=== PATIENT | male | born 1995 | race Caucasian/White ===

== ENCOUNTER 2018-08-10 17:06 | Emergency (ER) | payer MEDICAID, SELFPAY ==
[2018-08-10 17:10] VITALS: BP 157/78; PULSE 108; RESP 14; TEMP 36.5; O2SAT 100
--- NOTE | 2018-08-10 17:17 | W.ED.GENAD ---
Discharge Plan Disposition Patient Disposition: AGAINST MEDICAL ADVICE Discharge Details Chief Complaint: Chest Pain Clinical Impression: Drug use Reason For Visit: CASH Primary Care Provider: JOANNA CAMPBELL ED Provider: Elmo Menard Home Meds and New Rx's Prescriptions: No Action aripiprazole [Abilify] 20 MG tablet 20 mg PO DAILY RF: 0 quetiapine [Seroquel] 50 MG tablet 100 mg PO HS RF: 0 mirtazapine [Remeron] 15 MG tablet 15 mg PO DAILY RF: 0 guanfacine [Intuniv ER] 4 MG tablet extended release 24 hr 4 mg PO DAILY RF: 0 hydrocortisone 30 GM cream 30 gm Topical BID Qty: 1 RF: 0 Medical Decision Making 17:20 --Pt seen immediately on arrival. 22-year-old male with questionable history of schizophrenia, remote traumatic brain injury, here with anxiety and numbness in his anterior chest after smoking what he thinks is marijuana just prior to arrival. ECG reviewed and interpreted by me: Sinus rhythm 94 bpm with short [place] interval 118, RSR prime pattern noted, possible LVH although patient is quite thin. Patient is agreeable to blood draw but refusing IV placement. Patient has decisional making capacity to provide informed refusal of care. Will obtain labs including electrolytes, tsh, cardiac enzymes. Will give ativan. Plan explained to patient. 17:35 --Patient eloped from the emergency department prior to completion of workup. Attempted to locate the patient on hospital grounds and was unsuccessful HPI General Mode of arrival: EMS. Date/Time Provider Initiated Documentation: 08/10/18 17:16. Limitations to Documentation: no limitations. Information obtained by: patient. HPI Narrative: 22-year-old male with history of remote traumatic brain injury and possible schizophrenia, here with chief complaint of discomfort in his chest. Patient notes anterior central chest discomfort that is described as a numbness. Symptoms started suddenly after smoking marijuana just prior to arrival. Patient denies other known drug use. Patient was in the grocery store after smoking marijuana and started to have symptoms and requested CPR be performed by the staff. He requested EMS. Patient has associated anxiety. No SOB. Related Data Home Medications Medication Instructions Recorded Confirmed aripiprazole [Abilify] 20 mg PO DAILY 08/10/13 05/26/18 quetiapine [Seroquel] 100 mg PO HS 08/10/13 05/26/18 guanfacine [Intuniv ER] 4 mg PO DAILY 06/18/14 05/26/18 mirtazapine [Remeron] 15 mg PO DAILY 06/18/14 05/26/18 hydrocortisone 30 gm TOPICAL BID #1 tube 05/26/18 Previous Rx's Medication Instructions Recorded hydrocortisone 30 gm TOPICAL BID #1 tube 05/26/18 Allergies Allergy/AdvReac Type Severity Reaction Status Date / Time risperidone [From Risperdal] Allergy Intermediate Psychosis Unverified 05/12/17 14:46 Review of Systems Review of Systems All systems reviewed & are unremarkable except as noted in HPI and below Cardiovascular Denies chest pain, Denies palpitations and Denies dyspnea Respiratory Denies dyspnea Psychiatric Reports anxiety Endocrine Denies palpitations PFSH Social History Smoking/Tobacco Use Status: Never Exam Const General: cooperative and anxious HENMT Head: normocephalic and atraumatic Mouth: moist mucous membranes Eyes Conjunctivae: normal conjunctivae Sclera: normal sclerae Pupils: PERRL and pupil size bilaterally (4) EOM: EOM intact bilaterally Neck Neck: trachea midline and supple Resp Auscultation: clear to auscultation bilaterally, no rales, no rhonchi and no wheezes Cardio Jugular venous pressure: no JVD Rate: tachycardic Rhythm: regular rhythm GI Palpation: soft, not firm, no guarding, no masses, not rigid and nontender Skin General skin exam: no rashes or lesions noted Neuro General: alert, awake, oriented x3 and tone normal Extrem General: no edema Psych Appearance: grossly normal Mental Status: mental status grossly normal Speech and Movement: speech and movement normal Mood: anxious mood Affect: anxious affect Insight: insight good Judgment: judgment good
--- NOTE | 2018-08-10 17:28 | ED.GENADUL_ITS ---
Discharge Plan Disposition Patient Disposition: AGAINST MEDICAL ADVICE Discharge Details Chief Complaint: Chest Pain Clinical Impression: Drug use Reason For Visit: CASH Primary Care Provider: JOANNA CAMPBELL ED Provider: Elmo Menard Home Meds and New Rx's Prescriptions: No Action aripiprazole [Abilify] 20 MG tablet 20 mg PO DAILY RF: 0 quetiapine [Seroquel] 50 MG tablet 100 mg PO HS RF: 0 mirtazapine [Remeron] 15 MG tablet 15 mg PO DAILY RF: 0 guanfacine [Intuniv ER] 4 MG tablet extended release 24 hr 4 mg PO DAILY RF: 0 hydrocortisone 30 GM cream 30 gm Topical BID Qty: 1 RF: 0 Medical Decision Making 17:20 --Pt seen immediately on arrival. 22-year-old male with questionable history of schizophrenia, remote traumatic brain injury, here with anxiety and numbness in his anterior chest after smoking what he thinks is marijuana just prior to arrival. ECG reviewed and interpreted by me: Sinus rhythm 94 bpm with short [place] interval 118, RSR prime pattern noted, possible LVH although patient is quite thin. Patient is agreeable to blood draw but refusing IV placement. Patient has decisional making capacity to provide informed refusal of care. Will obtain labs including electrolytes, tsh, cardiac enzymes. Will give ativan. Plan explained to patient. 17:35 --Patient eloped from the emergency department prior to completion of workup. Attempted to locate the patient on hospital grounds and was unsuccessful HPI General Mode of arrival: EMS . Date/Time Provider Initiated Documentation: 08/10/18 17:16 . Limitations to Documentation: no limitations . Information obtained by: patient . HPI Narrative: 22-year-old male with history of remote traumatic brain injury and possible schizophrenia, here with chief complaint of discomfort in his chest. Patient notes anterior central chest discomfort that is described as a numbness. Symptoms started suddenly after smoking marijuana just prior to arrival. Patient denies other known drug use. Patient was in the grocery store after smoking marijuana and started to have symptoms and requested CPR be performed by the staff. He requested EMS. Patient has associated anxiety. No SOB. Related Data Home Medications Medication Instructions Recorded Confirmed aripiprazole [Abilify] 20 mg PO DAILY 08/10/13 05/26/18 quetiapine [Seroquel] 100 mg PO HS 08/10/13 05/26/18 guanfacine [Intuniv ER] 4 mg PO DAILY 06/18/14 05/26/18 mirtazapine [Remeron] 15 mg PO DAILY 06/18/14 05/26/18 hydrocortisone 30 gm TOPICAL BID #1 tube 05/26/18 Previous Rx's Medication Instructions Recorded hydrocortisone 30 gm TOPICAL BID #1 tube 05/26/18 Allergies Allergy/AdvReac Type Severity Reaction Status Date / Time risperidone [From Risperdal] Allergy Intermediate Psychosis Unverified 05/12/17 14:46 Review of Systems Review of Systems All systems reviewed & are unremarkable except as noted in HPI and below Cardiovascular Denies chest pain, Denies palpitations and Denies dyspnea Respiratory Denies dyspnea Psychiatric Reports anxiety Endocrine Denies palpitations PFSH Social History Smoking/Tobacco Use Status: Never Exam Const General: cooperative and anxious HENMT Head: normocephalic and atraumatic Mouth: moist mucous membranes Eyes Conjunctivae: normal conjunctivae Sclera: normal sclerae Pupils: PERRL and pupil size bilaterally (4) EOM: EOM intact bilaterally Neck Neck: trachea midline and supple Resp Auscultation: clear to auscultation bilaterally, no rales, no rhonchi and no wheezes Cardio Jugular venous pressure: no JVD Rate: tachycardic Rhythm: regular rhythm GI Palpation: soft, not firm, no guarding, no masses, not rigid and nontender Skin General skin exam: no rashes or lesions noted Neuro General: alert, awake, oriented x3 and tone normal Extrem General: no edema Psych Appearance: grossly normal Mental Status: mental status grossly normal Speech and Movement: speech and movement normal Mood: anxious mood Affect: anxious affect Insight: insight good Judgment: judgment good
== END 2018-08-10 17:34 | disposition left against medical advice (07) ==
LOC: ER 18:45
PROVIDERS: Emergency Provider Student in an Organized Health Care Education/Training Program; PCP Family Medicine
DX: F12.10 Cannabis abuse, uncomplicated (principal); R07.9 Chest pain, unspecified; Z53.29 Procedure and treatment not carried out because of patient's decision for other reasons
CPT/HCPCS: 80053; 99283; 83735; 84484; 85025

== ENCOUNTER 2018-12-29 14:16 | Emergency (ER) | payer MEDICAID, SELFPAY ==
[2018-12-29 14:27] VITALS: BP 124/74; PULSE 74; RESP 16; TEMP 36.5; O2SAT 100
[2018-12-29 14:48] LABS: Bilirubin Negative (Negative); Blood Negative (Negative); Clarity Cloudy; Glucose Negative (Negative); Ketones Trace mg/dL (Negative); Leukocyte Esterase Negative (Negative); Nitrite Negative (Negative); Urobilinogen 0.2 EU/dL (Up TO 0.2)
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
[2018-12-29 14:59] LABS: *AMPHETAMINES SCREEN URINE Negative (Negative); *BARBITURATES SCREEN URINE Negative (Negative); *BENZODIAZEPINES SCREEN URINE Negative (Negative); Cannabinoids THC Negative (Negative); Cocaine Screen,Urine Negative (Negative); METHADONE URINE SCREEN Negative (Negative); OPIATES URINE SCREEN Negative (Negative)
[2018-12-29 15:06] LABS: Tricyclic Antidepressants Negative (Negative)
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
[2018-12-29 15:45] VITALS: BP 125/81; PULSE 84; RESP 18; O2SAT 99
[2018-12-29 16:06] VITALS: BP 125/81; PULSE 84; RESP 18; TEMP 36.5; O2SAT 99
== END 2018-12-29 16:07 | disposition home or self-care (01) ==
PROVIDERS: Emergency Provider Emergency Medicine
DX: F32.9 Major depressive disorder, single episode, unspecified (principal); R45.851 Suicidal ideations; S41.112A Laceration without foreign body of left upper arm, initial encounter; X78.8XXA Intentional self-harm by other sharp object, initial encounter
CPT/HCPCS: 80307; 99285; 81003; 99284

== ENCOUNTER 2019-02-23 12:59 | Emergency (ER) | payer MEDICAID, SELFPAY ==
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
[2019-02-23 13:30] VITALS: BP 140/85; PULSE 83; RESP 16; TEMP 37.2; O2SAT 98
--- NOTE | 2019-02-23 13:48 | NUR.NOTE ---
refusing to give us a urine. wants to walk to the bathroom. wants to close the door with no one keeping an eye on him.otherwise will not do it. states we are impinging on his rights.Nursing Note:
[2019-02-23 14:08] LABS: Abs Immature Grans 0.01 k/cumm (0.0-0.09); Absolute Basophil Count 0.02 k/cumm (0.0-0.2); Absolute Eosinophil Count 0.01 k/cumm (0.0-0.7); Absolute Lymphocyte Count 1.07 k/cumm (1.2-3.4); Absolute Monocyte Count 0.51 k/cumm (0.11-0.7); Absolute Neutrophil Count 5.77 k/cumm (1.2-6.7); Basophils % 0.3; Eosinophils % 0.1; HCT 47.1 % (40.0-50.0); HGB 16.7 g/dL (13.5-17.5); Immature Grans % 0.1; Lymphocytes % 14.5; Mean Corp. HGB Concentration 35.5 g/dL (32.0-36.0); Mean Corpuscular Hemoglobin 29.7 pg (27.0-33.0); Mean Corpuscular Volume 83.7 fL (80-95); Mean Platelet Volume 10.5 fL (8.0-11.0); Monocytes % 6.9; Neutrophils % 78.1; Platelet Count 251 x1000/uL (130-400); RBC 5.63 m/cumm (4.50-6.00); RBC Distribution Width 13.4 % (11.8-14.1); White Blood Cell Count 7.39 k/cumm (4.4-10.8)
[2019-02-23 14:13] LABS: *AMPHETAMINES SCREEN URINE Negative (Negative); *BARBITURATES SCREEN URINE Negative (Negative); *BENZODIAZEPINES SCREEN URINE Negative (Negative); Cannabinoids THC Negative (Negative); Cocaine Screen,Urine Negative (Negative); METHADONE URINE SCREEN Negative (Negative); OPIATES URINE SCREEN Negative (Negative)
[2019-02-23 14:17] LABS: Tricyclic Antidepressants Negative (Negative)
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
[2019-02-23 14:25] LABS: Salicylate < 2.8 mg/dL (2.8-20.0)
[2019-02-23 14:30] LABS: Acetaminophen < 2 ug/mL (10-30); Calcium 9.5 mg/dL (8.5-10.1); Glucose 90 mg/dL (70-100)
[2019-02-23 14:31] LABS: ALT 26 U/L (12-78); AST 22 U/L (15-37); Albumin 4.7 g/dL (3.4-5.0); Alkaline Phosphatase 108 U/L (46-116); Anion Gap 6.6 mmol/L (3-11); BUN 16 mg/dL (7-18); Bilirubin, Total 0.5 mg/dL (0.2-1.0); CO2 32.4 mmol/L (21.0-32.0); CREATININE 1.11 mg/dL (0.70-1.30); Chloride 101 mmol/L (98-107); Potassium 3.9 mmol/L (3.5-5.1); Sodium 140 mmol/L (136-145); TSH 1.73 uIU/mL (0.358-3.74); Total Protein 8.3 g/dL (6.4-8.2)
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
[2019-02-23 14:35] LABS: ETHANOL BLOOD < 3.0 mg/dL (<3)
--- NOTE | 2019-02-23 15:18 | PDOC.ERCMPRO ---
Care Management Progress Note 02/23-Melvin presents to the emergency department via police. Melvin was found at a spiritism with a knife in his hand. When his pillowcase maker told him that was not a good idea to have a knife, he ran out of the spiritism and started hitting street signs with a pole/stick. He states he is hearing voices. Patient did break a pair of metal handcuffs while in police custody but denies he did. Patient states it was someone else in his body. Patient has been at [facility]. He has demonstrated some aggressive posturing towards police and staff. Currently he is denying suicidal or homicidal ideation. He does have flight of ideas with poor judgment and insight. Devin reports that his father is his guardian. Currently father is out of state. Patient's mother is in [facility]. Intellectual disability and developmental services division (IDDS) at [facility]. Rehab Physician is Radha Helms. Parents can call in and speak with nursing but not patient at this time. Dr. Amin has ordered a CPSO which is in place. Huddle in ED: Dr. Amin, Amber RN, Devin ABARCA, and this CM. Devin states that he is sending a referral to [facility], [facility], [facility], and [facility]. [facility] has no beds. There are some beds available at the other hospitals listed for referral. Devin has know stated that [facility] can not take patient, too acute for their unit. Dr. Amin feels that patient should not have a metal spoon only finger foods, only his family preservation caseworker can visit, and no phone. Will not be allowed to have activities from the activity cart. Little stimulation as possible. Discussed that this CM would reach out to nursing adjustment supervisor to find out if there were beds available to move Melvin upstairs. Discussed with Joy, Nursing Drafter Cartographic, and at this time Melvin can not be moved to the floor. This CM did notify Dr. Amin of this. Safety Plan has been formulated and distributed to appropriate care team members. VOLUNTARY FOR INPATIENT PSYCHIATRIC STABILIZATION. Patient was not cooperating when first arrived at [facility]. Pt has is unable to demonstrate appropriate coping skills at this time. Safety plan has been established with patient, and care team, to adhere to patient goals, identify restrictions based on behavioral status, address nutrition, and determine allowed personal belongings, tools for hygiene and personal care. Determine level of activity including ambulation, level of supervision, visitors, and determine privileges based on behaviors and level of engagement by patient. [place] Safety Plan Voluntary 02/23/19 SAFETY PLAN: 1. Will remain on suicide precautions and In Paper Clothes 2. Will remain in room under direct supervision of one-on-one staff at all times provided by CPSO; JESSICA, HOSPITAL CLINIC ASSISTANT multi needle machine operator. 3. May have paper cups, plates, finger foods only. No utensils. 4. Follow [facility] Management of the Admitted Behavioral Health Patient policy. 5. Comfort bath system only. 6. No personal belongings 7. Visitors-Only visitor is family preservation caseworker and RIMA 8. May have Bathroom privileges escorted by staff 9. No phone at this time 10. Due to VOLUNTARY status, if patient wishes to leave [facility], the [facility] heater worker must be contacted to re-evaluate patient prior to patient exiting the building. Patient is currently voluntarily at [facility] and seeking inpatient admission when a bed becomes available. [facility] Frontline Pit Supervisor will continue seeking placement. Please contact the Shipyard Supervisor Ratoprinter ([phone]) and [facility] Pit Supervisor ([phone]) for any needed changes in the Safety Plan. Safety plan has been provided to interdepartmental care team.
[2019-02-23] MEDS: QUEtiapine 25 MG TAB 50 MG PO (15:40)
--- NOTE | 2019-02-23 16:02 | CMPROGNOTE_ITS ---
Care Management Progress Note 02/23-Melvin presents to the emergency department via police. Melvin was found at a congregation with a knife in his hand. When his case packer and sealer told him that was not a good idea to have a knife, he ran out of the congregation and started hitting street signs with a pole/stick. He states he is hearing voices. Patient did break a pair of metal handcuffs while in police custody but denies he did. Patient states it was someone else in his body. Patient has been at [facility]. He has demonstrated some aggressive posturing towards police and staff. Currently he is denying suicidal or homicidal ideation. He does have flight of ideas with poor judgment and insight. Devin reports that his father is his guardian. Currently father is out of state. Patient's mother is in [facility]. Intellectual disability and developmental services division (IDDS) at [facility]. Steam And Power Supervisor is Radha Helms. Parents can call in and speak with nursing but not patient at this time. Dr. Amin has ordered a CPSO which is in place. Huddle in ED: Dr. Amin, Amber RN, Devin ABARCA, and this CM. Devin states that he is sending a referral to [facility], [facility], [facility], and [facility]. [facility] has no beds. There are some beds available at the other hospitals listed for referral. Devin has know stated that [facility] can not take patient, too acute for their unit. Dr. Amin feels that patient should not have a metal spoon only finger foods, only his family preservation caseworker can visit, and no phone. Will not be allowed to have activities from the activity cart. Little stimulation as possible. Discussed that this CM would reach out to nursing car installations supervisor to find out if there were beds available to move Melvin upstairs. Discussed with Joy, Nursing Exchange Engineer, and at this time Melvin can not be moved to the floor. This CM did notify Dr. Amin of this. Safety Plan has been formulated and distributed to appropriate care team members. VOLUNTARY FOR INPATIENT PSYCHIATRIC STABILIZATION. Patient was not cooperating when first arrived at [facility]. Pt has is unable to demonstrate appropriate coping skills at this time. Safety plan has been established with patient, and care team, to adhere to patient goals, identify restrictions based on behavioral status, address nutrition, and determine allowed personal belongings, tools for hygiene and personal care. Determine level of activity including ambulation, level of supervision, visitors, and determine privileges based on behaviors and level of engagement by patient. Deion Safety Plan Voluntary 02/23/19 SAFETY PLAN: 1. Will remain on suicide precautions and In Paper Clothes 2. Will remain in room under direct supervision of one-on-one staff at all times provided by CPSO; JESSICA, SURGICAL PATHOLOGIST roll forming machine operator. 3. May have paper cups, plates, finger foods only. No utensils. 4. Follow [facility] Management of the Admitted Behavioral Health Patient policy. 5. Comfort bath system only. 6. No personal belongings 7. Visitors-Only visitor is family preservation caseworker and RIMA 8. May have Bathroom privileges escorted by staff 9. No phone at this time 10. Due to VOLUNTARY status, if patient wishes to leave [facility], the [facility] electronics worker must be contacted to re-evaluate patient prior to patient exiting the building. Patient is currently voluntarily at [facility] and seeking inpatient admission when a bed becomes available. [facility] Frontline Recruiting And Selection Consultant will continue seeking placement. Please contact the Plant Technician Recruitment Coordinator ([phone]) and [facility] Recruiting And Selection Consultant ([phone]) for any needed changes in the Safety Plan. Safety plan has been provided to interdepartmental care team.
[2019-02-23] MEDS: LORazepam 1 MG TAB 2 MG PO (17:10)
[2019-02-23] MEDS: Haloperidol 5 MG TAB (17:10)
[2019-02-23] MEDS: diphenhydrAMINE 50 MG/ML VIAL (17:10)
[2019-02-23] MEDS: diphenhydrAMINE 25 MG CAP (17:11)
--- NOTE | 2019-02-23 17:12 | NUR.NOTE ---
1647: code heladio called for patient stating going to hurt the nurses and if you do not let me leave and I am leaving. patient deesclation and dstraction techniques unable to re-direct patient, patient then agreed to take oral medication. after patient took oral medication patient elbowed the room 5 door open and started walking out of the room saying I am leaving patient was then placed in 4 point restraints, positive circulation and csm noted to 4 extremities after restraint application. patient currently sitting with CPSO. Nursing Note:
--- NOTE | 2019-02-23 19:31 | PDOC.ERCMPRO ---
Care Management Progress Note 02/23/19 INVOLUNTARY FOR INPATIENT PSYCHIATRIC STABILIZATION Melvin was unable to regulate, and continued to posture towards staff and verbalize threats. He then attempted to charge out of his room resulting in CODE BROCK response in the ER. Upon arrival this speech writer observed Melvin in his room attempting to manipulate the situation with emotions and statements; he was very well spoken and challenging. He presented as calm, then angry, then remorseful then angry again and appeared to either be unable to regulate his emotional response or attempting to change the outcome with different tactics. Dr. Amin remained clear, concise and consistent with directives and expectations. Melvin verbalized that he was leaving and no restraints would hold him down. That bed can't hold me. He then appeared resigned to the fact his tactics were unsuccessful and verbalized he was agreeable to taking oral medication, which was provided. As soon as it support engineer began to disperse, Melvin ran toward the half open sliding glass door and jumping, swung his body to slam the door with his elbow full force. He then exited the room and attempted to break through it support engineer to the exit yelling about how he was leaving using expletives. He was physically restrained and immediately began verbally stating he would comply. [facility], then filed EE paperwork. [facility] called soon after to coordinate second certification which took place at 1830. Melvin was well spoken and impressed the [facility] psychiatrist, per his report. Melvin advocated for following up with his community providers and re-wrote the script of his day; either due to lack of perception or insight or due to further manipulation. With ongoing discussion and review of factual information with Devin Oconnor and this speech writer, the [facility] Psychiatrist found Melvin to meet criteria for Involuntary Hold for Psychiatric Stabilization. CM met with Melvin to discuss next steps; providing patient education around process, procedure and patient rights. Melvin reported he would again be agreeable to placement; CM reviewed re-evaluation process and timing. Melvin appropriately advocated for removal of restraints and reported he felt calm and hungry and needed to urinate. CM met with ЕКАТЕРИНА Wood and Dr. Amin who were agreeable to begin restraint removal process. Safety plan has been established with patient, and care team, to adhere to patient goals, identify restrictions based on behavioral status, address nutrition, and determine allowed personal belongings, tools for hygiene and personal care. Determine level of activity including ambulation, level of supervision, visitors, and determine privileges based on behaviors and level of engagement Melvin presents with. SAFETY PLAN: 1. Will remain on suicide precautions and in Paper Clothes 2. Will remain in room under direct supervision of one-on-one staff at all times provided by CPSO; JESSICA, CERAMIC TILE SETTER multiple effect evaporator operator. 3. May have paper cups, plates, finger foods only. No utensils. 4. Follow [facility] Management of the Admitted Behavioral Health Patient policy. 5. Comfort bath system only. 6. No personal belongings 7. Visitors permitted; [facility] staff only. 8. Bathroom escort at RN discretion. 9. No phone at this time; Guardian/IDDS workers to contact staffing account manager directly. Patient is currently involuntarily at [facility], [facility] will continue seeking inpatient admission. Melvin will be re-evaluated every 24 hours. Please contact the Sheet Taker Sap Crm Developer ([phone]) and [facility] Power Lineman Technician ([phone]) for any needed changes in the Safety Plan. Safety plan has been provided to interdepartmental care team. - MH Services (Omit if N/A) Current MH Services: Psychiatric Inp (IDDS client; usp, CM, Counselor, Respite and Med Management)
--- NOTE | 2019-02-23 20:09 | CMPROGNOTE_ITS ---
Care Management Progress Note 02/23/19 INVOLUNTARY FOR INPATIENT PSYCHIATRIC STABILIZATION Melvin was unable to regulate, and continued to posture towards staff and verbalize threats. He then attempted to charge out of his room resulting in CODE BROCK response in the ER. Upon arrival this typewriter assembly and parts inspector observed Melvin in his room attempting to manipulate the situation with emotions and statements; he was very well spoken and challenging. He presented as calm, then angry, then remorseful then angry again and appeared to either be unable to regulate his emotional response or attempting to change the outcome with different tactics. Dr. Amin remained clear, concise and consistent with directives and expectations. Melvin verbalized that he was leaving and no restraints would hold him down. That bed can't hold me. He then appeared resigned to the fact his tactics were unsuccessful and verbalized he was agreeable to taking oral medication, which was provided. As soon as clinical support nurse began to disperse, Melvin ran toward the half open sliding glass door and jumping, swung his body to slam the door with his elbow full force. He then exited the room and attempted to break through clinical support nurse to the exit yelling about how he was leaving using expletives. He was physically restrained and immediately began verbally stating he would comply. [facility] support, then filed EE paperwork. [facility] called soon after to coordinate second certification which took place at 1830. Melvin was well spoken and impressed the [facility] psychiatrist, per his report. Melvin advocated for following up with his community providers and re-wrote the script of his day; either due to lack of perception or insight or due to further manipulation. With ongoing discussion and review of factual information with Devin Oconnor and this typewriter assembly and parts inspector, the [facility] Psychiatrist found Melvin to meet criteria for Involuntary Hold for Psychiatric Stabilization. CM met with Melvin to discuss next steps; providing patient education around process, procedure and patient rights. Melvin reported he would again be agreeab le to placement; CM reviewed re-evaluation process and timing. Melvin appropriately advocated for removal of restraints and reported he felt calm and hungry and needed to urinate. CM met with ЕКАТЕРИНА Wood and Dr. Amin who were agreeable to begin restraint removal process. Safety plan has been established with patient, and care team, to adhere to patient goals, identify restrictions based on behavioral status, address nutrition, and determine allowed personal belongings, tools for hygiene and personal care. Determine level of activity including ambulation, level of super vision, visitors, and determine privileges based on behaviors and level of engagement Melvin presents with. SAFETY PLAN: 1. Will remain on suicide precautions and in Paper Clothes 2. Will remain in room under direct supervision of one-on-one staff at all times provided by CPSO; JESSICA, HOME APPLIANCE WASHING MACHINE MECHANIC pattern marking supervisor. 3. May have paper cups, plates, finger foods only. No utensils. 4. Follow [facility] Management of the Admitted Behavioral Health Patient policy. 5. Comfort bath system only. 6. No personal belongings 7. Visitors permitted; [facility] staff only. 8. Bathroom escort at RN discretion. 9. No phone at this time; Guardian/IDDS workers to contact executive staff assistant directly. Patient is currently involuntarily at [facility], [facility] will continue seeking inpatient admission. Melvin will be re-evaluated every 24 hours. Please contact the Sales Project Coordinator Electric Serviceman ([phone]) and [facility] Manager Consumer Insights ([phone]) for any needed changes in the Safety Plan. Safety plan has been provided to interdepartmental care team. - MH Services (Omit if N/A) Current MH Services: Psychiatric Inp (IDDS client; jail, CM, Counselor, Respite and Med Management)
--- NOTE | 2019-02-23 20:18 | NUR.NOTE ---
patient ambulated steadily to restroom and back, patient removed from 2 other restraints primary RN aware Nursing Note:
--- NOTE | 2019-02-23 20:58 | NUR.NOTE ---
Nursing Note: talked with pt's mother with verbal ok from pt infromed her that she could not talk with her son or visit him, did tell her her son was doing fine right now
--- NOTE | 2019-02-24 06:44 | NUR.NOTE ---
Nursing Note: pt has behaved all night, and slept after he eat last night and is still sleeping
--- NOTE | 2019-02-24 07:07 | NUR.NOTE ---
Nursing Note: gave report to teresa
[2019-02-24] MEDS: ARIPiprazole 5 MG TAB 10 MG PO (10:51)
--- NOTE | 2019-02-24 12:17 | PDOC.ERCMPRO ---
Care Management Progress Note 02/24-State legal team has overturned the second cert. Patient is no longer on EE status (involuntary). Met with RIMA Beltran and Radha ABARCA IDDS Sandwich And Drink Cart Operator. Plan is for Melvin to return home in [place] (this is his home care provider, Abebe Centeno) with Radha Transporting at 2 PM. Melvin also has a respite home in [facility]. Melvin has a counselor, Erik Galeana, that he meets with every . Raven Kong is his medication prescriber and she has been tapering his medications. RIMA will request that the meds be addressed now and RIMA will also reach out to Erik to schedule an appt as soon as possible. Patient will continue to have a CPSO until discharge at 2. Dr. Carter and Tash RN is aware.
--- NOTE | 2019-02-24 12:27 | CMPROGNOTE_ITS ---
Care Management Progress Note 02/24-State legal team has overturned the second cert. Patient is no longer on EE status (involuntary). Met with RIMA Beltran and Radha ABARCA IDDS Senior Sql Server Developer. Plan is for Melvin to return home in [place] (this is his home care provider, Abebe Centeno) with Radha Transporting at 2 PM. Melvin also has a respite home in [facility]. Melvin has a counselor, Erik Galeana, that he meets with every . Raven Kong is his medication prescriber and she has been tapering his medications. RIMA will request that the meds be addressed now and RIMA will also reach out to Erik to schedule an appt as soon as possible. Patient will continue to have a CPSO until discharge at 2. Dr. Carter and Tash RN is aware.
--- NOTE | 2019-02-24 12:35 | PDOC.MHCN ---
Date of service: 02/24/19 Time of Service: 12:36 Mental Health Crisis Note Presenting Issue How did you arrive at the ED and why did you come: Melvin arrived at [facility] emergency following an incident at the police station that resulted in he reporting symptoms of mental illness he had been experiencing. He asked to come to the hospital to consider voluntary placement into an inpatient psych. facility Precipitating Factors Melvin denies suicidal or homicidal ideation, planning, intent, or recent attempts. He reports some concerns about being confined and/or having to deal with authority that have been emotionally triggering for him. His behavior in the emergency room following the incident that put him on involuntary papers at the hospital have been unremarkable. Furthermore, during the second certification process, he took ownership of the behaviors, identified a medication prescriber, counselor, home provider, insurance case manager, and respite provider. He has co-guardians that are his biological parents. He has an extensive wrap-around support team that will be monitoring him and assisting him with appointments so appropriate medication/treatment changes can be made that may help reduce the risky behaviors that occurred yesterday in the community. Disposition BEHAVIOR: calm, cooperative, processing, taking ownership to parts of day he can improve from yesterday EYE CONTACT: good MOOD: euthymic AFFECT: full APPETITE: good SLEEP(trouble falling/staying asleep: none reported Plan Melvin will be released to treatment providers. He will return to his home provider. He will attend respite out of town to process the incidents. He will attend an appointment with his medication prescriber and counselor. His insurance case manager will get these appointments scheduled to an earlier time. Melvin will call [facility] emergency services if a crisis occurs again.
--- NOTE | 2019-02-24 12:45 | PDOC.MHCN_ITS ---
Date of service: 02/24/19 Time of Service: 12:36 Mental Health Crisis Note Presenting Issue How did you arrive at the ED and why did you come: Melvin arrived at [facility] emergency following an incident at the police station that resulted in he reporting symptoms of mental illness he had been experiencing. He asked to come to the hospital to consider voluntary placement into an inpatient psych. facility Precipitating Factors Melvin denies suicidal or homicidal ideation, planning, intent, or recent attempts. He reports some concerns about being confined and/or having to deal with authority that have been emotionally triggering for him. His behavior in the emergency room following the incident that put him on involuntary papers at the hospital have been unremarkable. Furthermore, during the second certific ation process, he took ownership of the behaviors, identified a medication prescriber, counselor, home provider, counter caser, and respite provider. He has co-guardians that are his biological parents. He has an extensive wrap- around support team that will be monitoring him and assisting him with appointments so appropriate medication/treatment changes can be made that may help reduce the risky behaviors that occurred yesterday in the community. Disposition BEHAVIOR: calm, cooperative, processing, taking ownership to parts of day he can improve from yesterday EYE CONTACT: good MOOD: euthymic AFFECT: full APPETITE: good SLEEP(trouble falling/staying asleep: none reported Plan Melvin will be released to treatment providers. He will return to his home provider. He will attend respite out of town to process the incidents. He will attend an appointment with his medication prescriber and counselor. His counter caser will get these appointments scheduled to an earlier time. Melvin will call [facility] emergency services if a crisis occurs again.
[2019-02-24 12:54] VITALS: BP 124/77; PULSE 69; RESP 16; TEMP 37; O2SAT 100
[2019-02-24 15:06] VITALS: BP 124/77; PULSE 69; RESP 16; TEMP 37; O2SAT 100
== END 2019-02-24 15:05 | disposition home or self-care (01) ==
PROVIDERS: Emergency Medicine; Emergency Provider Physician Assistant
DX: R45.87 Impulsiveness (principal); F69 Unspecified disorder of adult personality and behavior; F84.0 Autistic disorder
CPT/HCPCS: 36415; 80053; 80307; 99285; 80320; 80329; 84443; 85025; 99284; J1200

== ENCOUNTER 2019-06-09 13:52 | Emergency (ER) | payer MEDICAID, SELFPAY ==
[2019-06-09 13:54] VITALS: BP 121/74; PULSE 74; RESP 16; TEMP 36.6; O2SAT 97
--- NOTE | 2019-06-09 14:08 | ED.GENADUL_ITS ---
Discharge Plan Disposition Patient Disposition: HOME Condition: Improving Discharge Details Chief Complaint: Anxiety Clinical Impression: Anxiety Primary Care Provider: Matheus Costa ED Provider: David Amin Home Meds and New Rx's Prescriptions: Continued aripiprazole [Abilify] 20 MG tablet 10 mg PO DAILY RF: 0 mirtazapine [Remeron] 15 MG tablet 22.5 mg PO DAILY RF: 0 quetiapine [Seroquel] 50 mg Tablet 50 mg PO .Q24HRS PRNRF: 0 quetiapine [Seroquel XR] 50 mg Tablet Extended Release 24 Hr 100 mg PO .QHS RF: 0 guanfacine 4 mg Tablet Extended Release 24 Hr 4 mg PO DAILY PRNRF: 0 Discharge Instructions Instructions: Anxiety (ED) Additional Instructions: Please follow-up with your counselor tomorrow as well as her therapeutic case manager at [facility]. Continue your regular medications. Home to rest today. Return for any acute concern Medical Decision Making 23-year-old male presents from home complaining of intermittent episodes of anxiety. He states that he felt foggy last night and worries that he may have blacked out. He states he awoke and took his evening medications and slept soundly through the night and felt improved. He is worried that he may have an escalation and require hospitalization against his will, therefore presented to the ED. He arrives with unremarkable vital signs. He is mildly anxious on exam. He does not have any thoughts of harming himself or others. He is young and healthy and I do not feel requires any further medical work-up. He is given 0.5 mg of Ativan p.o. and he will follow-up with [facility]. HPI General Mode of arrival: ambulatory . Date/Time Provider Initiated Documentation: 06/09/19 13:53 . Limitations to Documentation: no limitations . Information obtained by: patient . History of Present Illness 23 year old M presents to the emergency department with the chief complaint of Anxiety, described as mild, Patient started experiencing this hour(s) and it has been intermittent. No relieving factors improve symptom(s), No exacerbating factors reported . Patient did receive the following treatments prior to arrival, none Related Data Home Medications Medication Instructions Recorded Confirmed aripiprazole [Abilify] 10 mg PO DAILY 08/10/13 06/09/19 mirtazapine [Remeron] 22.5 mg PO DAILY 06/18/14 06/09/19 guanfacine 4 mg PO DAILY PRN 02/23/19 06/09/19 quetiapine [Seroquel XR] 100 mg PO .QHS 02/23/19 06/09/19 quetiapine [Seroquel] 50 mg PO .Q24HRS PRN 02/23/19 06/09/19 Allergies Allergy/AdvReac Type Severity Reaction Status Date / Time risperidone [From Risperdal] Allergy Intermediate Psychosis Unverified 02/23/19 13:50 General Stated Complaint: Anxiety AGUSTINA: 3 Review of Systems Review of Systems 6 systems reviewed and otherwise negative. No thoughts of harming himself or others. No chest pain. No shortness of breath. No syncope [facility] Social History Smoking/Tobacco Use Status: Current-Occasional Tobacco Type: e-cigarettes Drug use: Never Substance use type: marijuana Do you feel safe at home: Yes Do you feel safe in your relationship?: Yes Exam Narrative Exam Narrative: GEN: awake, alert, oriented 3. Pleasant, well groomed, interactive. HEAD: Normocephalic, atraumatic ENT: Mucous membranes moist, oropharynx unremarkable, External ear exam unremarkable EYES: PERRL, EOMI NECK: Full ROM, no SHARRI, no menigismus CHEST/RESP: Nontender, clear to auscultation bilateral, no wheeze/rhonchi/rales CARDIOVASCULAR: RRR, no murmur, rub ellie. 2+ Rad pulse bilateral ABDOMEN: Soft, nontender, no mass. +Bowel sounds EXT: Full ROM, no edema, no rash Neuro: Grossly normal neurologic exam, conversant, interactive. Psych: Speech fluent, thoughts congruent, affect mildly anxious Course Vital Signs Temperature 36.6 C 06/09/19 13:54 Pulse 74 06/09/19 13:54 Respiratory Rate 16 06/09/19 13:54 Blood Pressure 121/74 06/09/19 13:54 Pulse Oximetry 97 06/09/19 13:54 Temperature 36.6 C 06/09/19 13:54 Temperature Source Skin 06/09/19 13:54 Pulse 74 06/09/19 13:54 Respiratory Rate 16 06/09/19 13:54 Respiratory Effort Non-Labored 06/09/19 13:59 Blood Pressure 121/74 06/09/19 13:54 Blood Pressure Position Sitting 06/09/19 13:54 Pulse Oximetry 97 06/09/19 13:54 Oxygen Delivery Method Room Air 06/09/19 13:54 Oxygen Flow Rate 0 06/09/19 13:54
[2019-06-09] MEDS: LORazepam 0.5 MG TAB PO (14:17)
[2019-06-09 14:18] VITALS: RESP 16
== END 2019-06-09 14:16 | disposition home or self-care (01) ==
PROVIDERS: Emergency Provider Emergency Medicine; PCP General Practice
DX: F41.9 Anxiety disorder, unspecified (principal)
CPT/HCPCS: 99283

== ENCOUNTER 2019-09-09 09:19 | Emergency (ER) | payer MEDICAID, SELFPAY ==
[2019-09-09 09:23] VITALS: BP 132/63; PULSE 72; RESP 18; TEMP 36.6; O2SAT 99
--- NOTE | 2019-09-09 09:38 | ED.GENADUL_ITS ---
Discharge Plan Disposition Patient Disposition: HOME Condition: Good Discharge Details Chief Complaint: Cellulitis Clinical Impression: Abrasion, Hematoma Primary Care Provider: Matheus Costa ED Provider: Juani Carrington Home Meds and New Rx's Prescriptions: No Action aripiprazole [Abilify] 20 MG tablet 10 mg PO DAILY RF: 0 mirtazapine [Remeron] 15 MG tablet 22.5 mg PO DAILY RF: 0 quetiapine [Seroquel] 50 mg Tablet 50 mg PO .Q24HRS PRNRF: 0 quetiapine [Seroquel XR] 50 mg Tablet Extended Release 24 Hr 100 mg PO .QHS RF: 0 guanfacine 4 mg Tablet Extended Release 24 Hr 4 mg PO DAILY PRNRF: 0 Discharge Instructions Instructions: Abrasion (ED), Hematoma (ED) Additional Instructions: Elevate leg for swelling as discussed. Wash area with soap and water once or twice daily and apply topical antibiotic ointment to the area twice daily as discussed. Observe for any increased redness, swelling, pain or discomfort. Return immediately for any concerns of infection as discussed. Recheck with primary care doctor if not improving in 1 week. Return sooner for any worsening, concerns or alarming symptoms if needed Medical Decision Making Very pleasant 23-year-old patient who presents for concerns of an abrasion to the left anterior pretibial levin just approximately 8 cm. Wound edges are well approximated, mild erythema at the wound edge overlying hematoma however no obvious sign of cellulitis. Patient was offered antibiotic treatment by mouth but declines at this time. Would prefer elevation and conservative treatments before taking antibiotic by mouth. Patient reports he does not have the means to pay for any biotic ointment, antibiotic ointment packets were provided to the patient. Elevation and wound care encouraged. Alarming signs and symptoms specifically infectious symptoms were discussed. Patient does have a small amount of numbness in a very focal area lateral to the wound edge which likely is secondary to hematoma swelling or the laceration. Counseled regarding expectations of skin numbness. Patient reports his understanding. The patient was stable and requested discharge. Prior to discharge, my usual and customary return precautions were reviewed with the patient - this included follow-up instructions and reasons to return to the Emergency Department if conditions worsens, does not improve as expected, or other new concerns arise. HPI General Date/Time Provider Initiated Documentation: 09/09/19 09:21 . HPI Narrative: 23-year-old patient is quite pleasant presents for complaints of an abrasion to his right pretibial levin which occurred approximately 1 week ago. Patient agrees to his levin on a fence. Presents with a linear abrasion approximately 8 cm long. Very minimal redness at the wound edges. Patient is concerned with swelling of the anterior levin which is persistent. Patient also is complaining of the numbness associated near the wound which seemingly was increased compared to 1 week ago. Patient denies any significant pain at the site. No fever, chills, nausea, vomiting. No ill feeling whatsoever. Tetanus is up-to-date in 2013. Related Data Home Medications Medication Instructions Recorded Confirmed aripiprazole [Abilify] 10 mg PO DAILY 08/10/13 09/09/19 mirtazapine [Remeron] 22.5 mg PO DAILY 06/18/14 09/09/19 guanfacine 4 mg PO DAILY PRN 02/23/19 06/09/19 quetiapine [Seroquel XR] 100 mg PO .QHS 02/23/19 09/09/19 quetiapine [Seroquel] 50 mg PO .Q24HRS PRN 02/23/19 09/09/19 Allergies Allergy/AdvReac Type Severity Reaction Status Date / Time risperidone [From Risperdal] Allergy Intermediate Psychosis Unverified 09/09/19 09:26 General Stated Complaint: Cellulitis AGUSTINA: 4 Review of Systems All systems reviewed & are unremarkable except as noted in HPI and below Constitutional Constitutional: Denies chills and Denies fever(s) Musculoskeletal Musculoskeletal: Denies abnormal gait, Reports numbness and Denies radiating pain into limb Integumentary/Breasts Skin/Breast: Denies pruritus, Reports skin swelling and Reports wounds Neurologic Neurologic: Denies abnormal gait and Reports numbness [facility] Social History Smoking/Tobacco Use Status: Current-Occasional Tobacco Type: cigarettes and e- cigarettes Alcohol Intake: never Substance use type: marijuana Do you feel safe at home: Yes Do you feel safe in your relationship?: Yes Exam Narrative Exam Narrative: CONST: Healthy appearing patient, in no acute distress. Well hydrated. Alert and alert. MUSCULOSKELETAL: Normal Gait. FROM of all extremities. Full strength of the lower extremity. Sensation intact distally. Small local patch of decreased sensation lateral to the wound edge. SKIN: Patient with an 8 cm linear abrasion with 1 to 2 mm of erythema at the wound edges. Mild edema surrounding the wound focally consistent with hematoma. No obvious cellulitis associated. Minimal warmth. No drainage. No obvious fluctuation. No calf pain, no distal swelling. No ankle pain. NEURO: Alert and awake. Speech clear. PSYCH: Normal affect. Cooperative. Course Vital Signs Vital signs: Vital Signs Temperature 36.6 C 09/09/19 09:23 Pulse 72 09/09/19 09:23 Respiratory Rate 18 09/09/19 09:23 Blood Pressure 132/63 09/09/19 09:23 Pulse Oximetry 99 09/09/19 09:23 Temperature 36.6 C 09/09/19 09:23 Temperature Source Temporal Artery Scan 09/09/19 09:23 Pulse 72 09/09/19 09:23 Respiratory Rate 18 09/09/19 09:23 Respiratory Effort 09/09/19 09:23 Blood Pressure 132/63 09/09/19 09:23 Blood Pressure Position Sitting 09/09/19 09:23 Pulse Oximetry 99 09/09/19 09:23 Oxygen Delivery Method Room Air 09/09/19 09:23 Oxygen Flow Rate 0 09/09/19 09:23 Pain Level 6 09/09/19 09:23
== END 2019-09-09 09:41 | disposition home or self-care (01) ==
LOC: ER 09:50
PROVIDERS: Emergency Provider Physician Assistant; PCP General Practice
DX: S80.12XA Contusion of left lower leg, initial encounter (principal); W22.8XXA Striking against or struck by other objects, initial encounter
CPT/HCPCS: 99282

== ENCOUNTER 2020-01-10 09:55 | Emergency (ER) | payer MEDICAID, SELFPAY ==
[2020-01-10 09:58] VITALS: BP 117/76; PULSE 100; RESP 18; TEMP 37.3; O2SAT 96
--- NOTE | 2020-01-10 10:25 | W.ED.GENAD ---
Discharge Plan Disposition Patient Disposition: HOME Condition: Stable Discharge Details Chief Complaint: Sorethroat Clinical Impression: Strep pharyngitis Primary Care Provider: None,None ED Provider: Juani Carrington Home Meds and New Rx's Prescriptions: New penicillin V potassium 500 mg tablet 500 mg PO TID Qty: 30 RF: 0 Continued aripiprazole [Abilify] 20 MG tablet 10 mg PO DAILY RF: 0 mirtazapine [Remeron] 15 MG tablet 22.5 mg PO DAILY RF: 0 quetiapine [Seroquel] 50 mg Tablet 50 mg PO .Q24HRS PRNRF: 0 quetiapine [Seroquel XR] 50 mg Tablet Extended Release 24 Hr 100 mg PO .QHS RF: 0 Discharge Instructions Instructions: Upper Respiratory Infection (ED) Additional Instructions: Drink plenty of fluids. Observe for any signs of dehydration. Use Motrin or Tylenol for fever and sore throat if needed. Use antibiotics as prescribed. Consider Cepacol lozenge for comfort. Warm salt water gargles for comfort. Throw away her toothbrush on day 3 and day 10 of treatment as discussed. Recheck with PCP in the next 3 to 5 days for any persistence of symptoms if needed. Return for any worsening, concerns, difficulty swallowing, sensation of increased swelling in the throat or difficulty breathing as discussed. Medical Decision Making 24-year-old patient presents with sore throat and malaise for last 24 hours. Patient has obvious pharyngeal erythema with tonsillar exudate without signs of abscess. Patient is able to eat and drink, is managing fluids without difficulty. Patient denies headache or dizziness. Patient reports baseline cough unchanged. Patient denies abdominal pain. Patient's rapid strep testing is positive. We will treat appropriately for strep throat with penicillin. Counsels regarding appropriate care precautions, recommended throwing away toothbrush and frequently used oral products. Patient reports his understanding. Alarming signs and symptoms discussed for which patient should have return. Patient does not have PCP at this time as his PCP recently retired. He was put on care process manager list for follow-up for new PCP. The patient was stable and requested discharge. Prior to discharge, my usual and customary return precautions were reviewed with the patient - this included follow-up instructions and reasons to return to the Emergency Department if conditions worsens, does not improve as expected, or other new concerns arise. HPI General Date/Time Provider Initiated Documentation: 01/10/20 10:18. HPI Narrative: Is a 24-year-old patient presenting for 24 hours of sore throat. Patient reports sore throat which persists today. No significant nasal congestion, mild cough but is a daily smoker. Patient denies nausea, vomiting or abdominal pain. Patient concerned for the possibility of strep throat. Patient reports mild malaise today, low-grade fever today. Patient denies difficulty breathing shortness of breath or wheezing. Patient has painful swallowing but is able to eat and drink. Is able to manage fluids without drooling. Denies voice change or trismus. No other concerns or complaints at this time. Related Data Home Medications Medication Instructions Recorded Confirmed aripiprazole [Abilify] 10 mg PO DAILY 08/10/13 09/09/19 mirtazapine [Remeron] 22.5 mg PO DAILY 06/18/14 09/09/19 quetiapine [Seroquel XR] 100 mg PO .QHS 02/23/19 09/09/19 quetiapine [Seroquel] 50 mg PO .Q24HRS PRN 02/23/19 09/09/19 penicillin V potassium 500 mg PO TID #30 tab 01/10/20 Previous Rx's Medication Instructions Recorded penicillin V potassium 500 mg PO TID #30 tab 01/10/20 Allergies Allergy/AdvReac Type Severity Reaction Status Date / Time risperidone [From Risperdal] Allergy Intermediate Psychosis Unverified 09/09/19 09:26 General Stated Complaint: Sorethroat AGUSTINA: 4 Review of Systems All systems reviewed & are unremarkable except as noted in HPI and below Constitutional Constitutional: Denies chills, Denies fatigue, Denies fever(s), Denies headache(s) and Reports malaise ENT Ears, Nose, Mouth, and Throat: Denies otalgia, Denies headache(s), Denies nasal congestion and Reports sore throat Cardiovascular Cardiovascular: Denies chest pain Respiratory Respiratory: Denies cough Gastrointestinal Gastrointestinal: Denies abdominal pain, Denies diarrhea, Denies nausea and Denies vomiting Neurologic Neurologic: Denies headache(s) Endocrine Endocrine: Denies fatigue [facility] Social History Smoking/Tobacco Use Status: Current-Occasional Tobacco Type: cigarettes and e-cigarettes Alcohol Intake: current Alcohol Intake frequency: holidays/special occasions only Substance use type: does not use Do you feel safe at home: Yes Do you feel safe in your relationship?: Yes Exam Narrative Exam Narrative: CONST: Healthy appearing patient, in no acute distress. Well hydrated. Alert and oriented. HENMT: Head nomocephalic, normal to inspection. Atraumatic. Hearing grossly normal. TMs appear normal bilaterally, moderate pharyngeal erythema with diffuse erythema of the posterior pharynx. Exudates noted on the tonsils without sign of peritonsillar abscess at this time. EYES: General normal appearance. Alignment normal. Eyelids normal. Conjunctiva normal. NECK: Normal visual inspection. FROM. Trachea midline. No Midline tenderness. Cervical lymphadenopathy present breath sounds clear CHEST: Normal insepection of the chest. RESP: Normal respiratory effort. Speaking full sentences. No cough. No audible wheezing. No retractions. Breath sounds with full and equal bilaterally, no wheezing, rhonchi or rales, clear lungs CARDIO: No JVD. No murmur, regular rate and rhythm GI: Abdomen is soft, nontender. No peritoneal signs, rebound or guarding Course Vital Signs Vital signs: Vital Signs Temperature 37.3 C 01/10/20 09:58 Pulse 100 H 01/10/20 09:58 Respiratory Rate 18 01/10/20 09:58 Blood Pressure 117/76 01/10/20 09:58 Pulse Oximetry 96 01/10/20 09:58 Temperature 37.3 C 01/10/20 09:58 Temperature Source Skin 01/10/20 09:58 Pulse 100 H 01/10/20 09:58 Respiratory Rate 18 01/10/20 09:58 Respiratory Effort Non-Labored 01/10/20 10:02 Blood Pressure 117/76 01/10/20 09:58 Blood Pressure Position Sitting 01/10/20 09:58 Pulse Oximetry 96 01/10/20 09:58 Oxygen Delivery Method Room Air 01/10/20 09:58 Oxygen Flow Rate 0 01/10/20 09:58 Pain Level 5 01/10/20 09:58 Lab/Test Results Lab/Test Results: 01/10/20 10:12 Pharynx Streptococcus Screen ([facility]) - Pending POC Strep Test-[facility](Rapid) Start: 01/10/20 10:13 Freq: Status: Active Protocol: Document 01/10/20 10:13 KW (Rec: 01/10/20 10:13 KW [id number]) Strep test-[facility](Rapid)-POC POC-Strep test-[facility] (Rapid) Positive POC-Strep test-[facility] (Rapid) Positive
== END 2020-01-10 10:39 | disposition home or self-care (01) ==
PROVIDERS: Emergency Provider Physician Assistant
DX: J02.0 Streptococcal pharyngitis (principal)
CPT/HCPCS: 87880; 99283; 87081

== ENCOUNTER 2020-09-26 16:07 | Emergency (ER) | payer MEDICAID, SELFPAY ==
[2020-09-26 16:11] VITALS: BP 130/72; PULSE 108; RESP 18; TEMP 37.4; O2SAT 108
--- NOTE | 2020-09-26 16:15 | DI.CT_ITS ---
EXAM: CT HEAD CERVICAL SPINE WO CLINICAL HISTORY: trauma, right side of head. TECHNIQUE: Imaging Protocol: Axial computed tomography images with coronal and sagittal reformatted images were created and reviewed COMPARISON: CT HEAD WITHOUT CONTRAST from 08/10/2013 FINDINGS: CT Head: Ventricles and Extra axial spaces: Normal in size and morphology for the patient's age. Hemorrhage: None. Cerebral parenchyma: Normal. Midline shift: None. Brainstem/Cerebellum: Normal. Calvarium: Normal. Visualized Paranasal sinuses/Mastoids: Mucosal thickening in the visualized paranasal sinuses. No fl uid levels are seen. The mastoids are clear. Soft Tissues: Unremarkable. CT Cervical Spine: Bones: No acute fracture or subluxation. Soft Tissues: Unremarkable. Lung Apices: Clear. IMPRESSION: 1. No acute intracranial process. 2. No acute fracture or subluxation in the cervical spine. RADIATION DOSE DELIVERED: 1,195.34mGy.cm Total DLP DATA REPOSITORY: All CT scans at this facility are submitted to the National Radiology Data Registry (NRDR) Dose Index Registry (DIR) with the [employer] ([employer]). RADIATION OPTIMIZATION: All CT scans at this facility use at least one of these dose optimization te chniques: automated exposure control; mA and/or kV adjustment per patient size (includes targeted exa ms where dose is matched to clinical indication); or iterative reconstruction.
--- NOTE | 2020-09-26 16:25 | W.ED.GENAD ---
Discharge Plan Disposition Patient Disposition: HOME Condition: Stable Discharge Details Clinical Impression: Concussion, Contusion, Abrasion Primary Care Provider: None,None ED Provider: Sabra Ritter Home Meds and New Rx's Prescriptions: Continued aripiprazole [Abilify] 20 MG tablet 10 mg PO DAILY RF: 0 mirtazapine [Remeron] 15 MG tablet 22.5 mg PO DAILY RF: 0 quetiapine [Seroquel] 50 mg Tablet 50 mg PO .Q24HRS PRNRF: 0 quetiapine [Seroquel XR] 50 mg Tablet Extended Release 24 Hr 100 mg PO .QHS RF: 0 penicillin V potassium 500 mg tablet 500 mg PO TID Qty: 30 RF: 0 Discharge Instructions Instructions: Concussion (ED), Abrasion (ED) Additional Instructions: Please keep the wound clean, dry, covered. Please try to not pick at these wounds. Monitor for signs infection including redness, warmth, drainage, increased pain, fever/chills. If you develop these or new/worsening symptoms please seek care urgently once again. In regard to your concussion, please try to avoid screens and physical exertion as it can worsen your symptoms. Encourage water intake. Tylenol and ibuprofen as needed for discomfort. Please keep your upcoming appointment with psychiatry. Please try primary care to schedule follow-up appointment for reevaluation as soon as possible. If you develop thoughts of self-harm or harming someone else, please seek care urgently once again. Discharge Data Discharge Date/Time-TO BE ENTERED AT DEPARTURE: 09/26/20 18:10 Medical Decision Making Patient is a 24-year-old male, currently in police custody, brought in for evaluation of head trauma. Per police report, he was picked up by them this afternoon. While in the holding area, began banging the right side of his head against the wall per police report. Patient describes being put on the ground by police and that is what caused the injury to his head. Patient also has abrasions to the right arm. He states that these are old and associated with previous suicide attempt. He states that he was hospitalized for this subsequently and denies suidical thoughts currently. The officer that bring him in states that iona has been making suicidal comments. Patient also states that his right eye is funky. Describes seeing, a rainbow that moved all the way around my eye then went away. States that this then turned into flashes and disappeared. I am unclear what he is noting for visual changes at this time, he will not give a clear answer for this. PMH slightly unclear. He reports hx of schizophrenia. Chart review shows TBI, ADHD, ODD. On exam, he appears nontoxic. Normal eye exam, I do not know the reliability of visual acuity at this time. PERRLA. No evdience of eye trauma. He has red, swollen area right frontal area and right temporal. No lacerations. No hemotympanum. He denies ROGERS. No N/V. Full ROM of cervical spine, no midline tenderness. Superficial abrasions consistent with excorations to right forearm. Larger abrasion above this, no active bleeding. He reports tetanus is UTD. States he did have a rapid COVID today which was negative. Cameback to the area 3 days ago from [place]. Will obtain CT of head based on his hx of trauma. Plan to US the eye. Will consult with . Patient has CPSO. He has refused to change into paper clothes but has been searched by police and all belonging removed. As the patient was endorsing some flashing in the right eye Dr. Amin and myself performed a bedside ultrasound which revealed no abnormality to the posterior aspect of the to suggest retinal detachment or significant vitreous damage. He has not had any visual changes while here CT reviewed by radiologist: FINDINGS: Brain: Normal. No hemorrhage. Unremarkable white matter. No mass effect. Cerebral ventricles: No ventriculomegaly. Bones/joints: Unremarkable. No acute fracture. Paranasal sinuses: Visualized sinuses are unremarkable. No fluid levels. Mastoid air cells: Visualized mastoid air cells are well aerated. Soft tissues: Unremarkable. IMPRESSION: No acute intracranial abnormality. FINDINGS: Bones/joints: No acute fracture. Normal alignment. Discs/Spinal canal/Neural foramina: No significant disc protrusion. No severe spinal canal stenosis. No significant neural foraminal narrowing. Soft tissues: Unremarkable. Lungs: Lung apices are normal. IMPRESSION: No acute findings. Patients current living situation as well as his PMH is slightly unclear. Ptient shistory is much different than what is reported by PD. I have asked to evaluate the patient. He continues to deny any SI or HI. Since being in the department, he has had a CPSO with him. Personal belonging had already been taken by . spoke with the patient. [facility] were able to speak with people who have worked with him before and feel that he is at his baseline. Patient has reported being homeless historically but has been residing in a home locally with assisatnce int he home. He has his meds given to him daily. Patient continues to deny SI or HI with them, as they have with me. As he will be with a responsible adult tonight, in a safe environment, they feel that he can be discharged home in their care. Patient has routine care, fifi f/u with counselor and PCP. He has appointment with psychiatry tomorrow. He was given return precautions. Care of the wounds on his arm was discussed. All of his questions and concerns were addressed, eh is in agreement witht [facility] plan. electrical inspector came to pick patient up. HPI General Mode of arrival: EMS. Date/Time Provider Initiated Documentation: 09/26/20 16:25. Limitations to Documentation: no limitations. Information obtained by: patient, police, EMS, RN notes reviewed and old records reviewed. HPI Narrative: Patient is a 24 year old male, brought in by police, for evaluation after striking his head and making suicidal comments. Patient was issued charged by local PD after which time he began to endorse thoughts of self harm. He was then placed in protective custody. PD report that patient was banging his head against the cell wall. Patient states there was an altercation between himself and the police during which time he struck his head. He also has abrasions on his right arm. He states that these are old and associated with old suicide attempt over a week ago. Reports he was seen in [place] for this and subsequently treated at [facility]. He is currently denying suicidal ideations. He states he has been taking his medications as prescribed. Reports that he was recently homeless but is currently residing with home care provider. He denies ROGERS, states that he chronically has no sensation in his head. Denies neck or back pain. Denies other injury today. States his tetanus is UTD. Related Data Home Medications Medication Instructions Recorded Confirmed aripiprazole [Abilify] 10 mg PO DAILY 08/10/13 09/26/20 mirtazapine [Remeron] 22.5 mg PO DAILY 06/18/14 09/26/20 quetiapine [Seroquel XR] 100 mg PO .QHS 02/23/19 09/26/20 quetiapine [Seroquel] 50 mg PO .Q24HRS PRN 02/23/19 09/26/20 penicillin V potassium 500 mg PO TID #30 tab 01/10/20 09/26/20 Previous Rx's Medication Instructions Recorded penicillin V potassium 500 mg PO TID #30 tab 01/10/20 Allergies Allergy/AdvReac Type Severity Reaction Status Date / Time risperidone [From Risperdal] Allergy Intermediate Psychosis Unverified 09/26/20 16:19 General Stated Complaint: PsychEval AGUSTINA: 2 Review of Systems Constitutional Constitutional: Reports as per HPI, Denies chills, Denies fatigue, Denies fever(s), Denies headache(s) and Denies weakness Eyes Eyes: Denies blind spots, Denies blurry vision, Reports change in vision (right eye had a rainbow which swirled around entire field, none now), Denies diplopia, Denies floaters and Reports seeing flashes (currently resolved) ENT Ears, Nose, Mouth, and Throat: Denies headache(s) and Denies neck pain Cardiovascular Cardiovascular: Reports as per HPI, Denies chest pain, Denies lightheadedness, Denies dyspnea and Denies dyspnea on exertion Respiratory Respiratory: Reports as per HPI, Denies cough, Denies dyspnea and Denies dyspnea on exertion Gastrointestinal Gastrointestinal: Reports as per HPI, Denies abdominal pain, Denies change in bowel habits, Denies nausea and Denies vomiting Genitourinary Genitourinary: Denies system reviewed and no additional complaints, except as documented (denies any change in urinary habits) Musculoskeletal Musculoskeletal: Denies abnormal gait, Denies back pain, Denies joint swelling, Denies limited range of motion, Denies neck pain and Reports numbness (chronic numbnrss in scalp) Integumentary/Breasts Skin/Breast: Reports as per HPI and Reports wounds Neurologic Neurologic: Denies abnormal movements, Denies abnormal speech, Denies abnormal gait, Denies headache(s), Reports numbness (chronic numbnrss in scalp), Denies paresthesias and Denies weakness Psychiatric Psychiatric: Denies auditory hallucinations, Denies hopelessness, Reports anhedonia, Denies visual hallucinations, Denies hallucinations, Denies tactile hallucinations, Denies homicidal ideation and Denies suicidal ideation Endocrine Endocrine: Denies fatigue [facility] Social History Smoking/Tobacco Use Status: Current-Occasional Tobacco Type: cigarettes and e-cigarettes Smoking risk assessment performed?: Yes Alcohol Intake: current Alcohol Intake frequency: holidays/special occasions only Substance use type: does not use Do you feel safe at home: Yes Do you feel safe in your relationship?: Yes Exam Const General: cooperative, healthy appearing, comfortable, no acute distress, well developed, well groomed and anxious Nutritional Appearance: average body habitus and well nourished Orientation: alert and awake [facility] Head: no palpable skull fracture, no Kumar's sign, contusion (as drawn below), no hematomas, no lacerations, no palpable skull fracture, no raccoon eyes, no scalp tenderness and No periorbital ecchymosis Head images: 1. area of contusion with small amount of swelling and ecchymosis. No laceration, no palpable fracture. No pain over this area. Ears: hearing grossly normal bilaterally and TM's normal bilaterally Face and sinus: normal facial exam and face symmetric Mouth: oral mucosae normal, lip normal, tongue normal and oropharynx normal Teeth and gingiva: dentition normal Throat: posterior oropharynx normal Eyes General: appearance normal, both eyes and all related structures Visual Ingram: normal visual ingram by confrontation Alignment and Position: alignment normal and position normal Periorbital: periorbital findings normal Eyelids: eyelids normal Conjunctivae: conjunctivae normal Sclera: sclerae normal Cornea: corneas normal Pupils: PERRL and normal by confrontation EOM: EOM intact bilaterally Neck Neck: normal visual inspection, full ROM, no meningeal signs and trachea midline Chest Chest: normal inspection of the chest, normal palpation of entire chest wall, no crepitus, no localized rib tenderness and no tenderness Resp Effort & Inspection: normal respiratory effort, able to speak in complete sentences and no respiratory distress Auscultation: clear to auscultation bilaterally, no rales, no rhonchi and no wheezes Cardio Rate: regular rate Rhythm: regular rhythm Heart Sounds: S1 normal and S2 normal Back/Spine/Pelvis Cervical Spine: normal cervical lordosis, No cervical muscular tenderness, No pain with cervical ROM, No cervical spinal tenderness and No step off deformity Thoracic/Lumbar Spine: thoracic and lumbar spine normal to inspection, No thoracic spinal tenderness and No lumbar spinal tenderness Skin Trauma: abrasion (dorsal right forearm, consistent with excoriations) Neuro General: patient alert, patient awake and patient oriented x3 Cranial Nerves: CN's II-XI intact bilaterally Cognition: normal cognition Speech: speech normal Gait: normal gait Motor: muscle tone normal throughout, strength 5/5 throughout, no pronator drift, no movement abnormalities noted and no fasciculations Sensory Exam: no sensory deficits noted Extrem Right upper extremity: normal to inspection, full ROM, normal capillary refill, no joint enlargement and elbow/forearm Details: normal to inspection (abrasions, otherwise WNL), normal ROM and distal pulses intact; no tenderness, no swelling, no crepitus, no penetrating wound and no deformity Elbow/forearm/wrist images: 1. superficial abrasion, no active bleeding. Linear, superficial montgomery consistent with excoriation around this area. No deep wounds, no evidence of infection Course Vital Signs Vital signs: Vital Signs Temperature 37.4 C 09/26/20 16:11 Pulse 108 H 09/26/20 16:11 Respiratory Rate 18 09/26/20 16:11 Blood Pressure 130/72 09/26/20 16:11 Pulse Oximetry 108 H 09/26/20 16:11 Temperature 37.4 C 09/26/20 16:11 Temperature Source Temporal Artery Scan 09/26/20 16:11 Pulse 108 H 09/26/20 16:11 Respiratory Rate 18 09/26/20 16:11 Blood Pressure 130/72 09/26/20 16:11 Blood Pressure Position Supine 09/26/20 16:11 Pulse Oximetry 108 H 09/26/20 16:11 Oxygen Delivery Method Room Air 09/26/20 16:11 Oxygen Flow Rate 0 09/26/20 16:11 Comment 09/26/20 16:11
--- NOTE | 2020-09-26 16:59 | PDOC.CMSAFED ---
- If Service Date Differs Date of service: 09/26/20 Time of Service: 17:00 Care Management Safety Plan Chief Complaint: Melvin is a 24 year old male who presents in the emergency department via [place] [employer] after reportedly making suicidal comments while in police custody. CM will respond to ED to assess patient after patient has been medically cleared and assessed by screener. If screener deems patient meets criteria for psychiatric stabilization CM will facilitate interdepartmental huddle with [facility] screener for safety planning considerations and meet with patient to review [facility] policy and safety plan, establish individual wishes for treatment and maintain patient rights. In the interim; please note safety plan below to guide patient care while awaiting further assessment in the ED. SAFETY PLAN: 1. Will remain on suicide precautions and in paper clothes. 2. Will remain in room under direct supervision of one-on-one staff at all times provided by CPSO, JESSICA, [employer] ASSIST[employer] school crossing guard supervisor. 3. May have paper cups, plates, finger foods as well as a cardboard spoon with which to eat meals. 4. Follow [facility] Management of the Admitted Behavioral Health Patient policy. 5. Comfort bath system only. 6. No personal belongings 7. Visitors: No visitors at this time. 8. Activities: None currently. 8. No telephone privileges at this time. 9. Due to VOLUNTARY status, if patient wishes to leave [facility], the [facility] yard worker must be contacted to evaluate patient prior to patient exiting the building. If deemed appropriate for inpatient psychiatric care, safety plan will be established with patient, and care team, to adhere to patient goals, identify restrictions based on behavioral status, address nutrition, and determine allowed personal belongings, tools for hygiene and personal care. As well plan will determine level of activity including ambulation, level of supervision, visitors, and determine privileges based on level of acuity, behaviors and level of engagement by patient. DISPOSITION: Melvin is evaluated by Maddy [facility] crisis screener. He does not meet criteria for hospitalization, so he is returning home with his home provider. Melvin will follow up with his therapist tomorrow.
--- NOTE | 2020-09-26 17:12 | DI.VRAD_ITS ---
PROCEDURE INFORMATION: Exam: CT Head Without Contrast Exam date and time: 09/26/2020 4:35 PM Age: 24 years old Clinical indication: Other: Trauma, RT side of head TECHNIQUE: Imaging protocol: Computed tomography of the head without contrast. COMPARISON: No relevant prior studies available. FINDINGS: Brain: Normal. No hemorrhage. Unremarkable white matter. No mass effect. Cerebral ventricles: No ventriculomegaly. Bones/joints: Unremarkable. No acute fracture. Paranasal sinuses: Visualized sinuses are unremarkable. No fluid levels. Mastoid air cells: Visualized mastoid air cells are well aerated. Soft tissues: Unremarkable. IMPRESSION: No acute intracranial abnormality. PROCEDURE INFORMATION: Exam: CT Cervical Spine Without Contrast Exam date and time: 09/26/2020 4:35 PM Age: 24 years old Clinical indication: Other: Trauma, RT side of head TECHNIQUE: Imaging protocol: Computed tomography images of the cervical spine without contrast. COMPARISON: No relevant prior studies available. FINDINGS: Bones/joints: No acute fracture. Normal alignment. Discs/Spinal canal/Neural foramina: No significant disc protrusion. No severe spinal canal stenosis. No significant neural foraminal narrowing. Soft tissues: Unremarkable. Lungs: Lung apices are normal. IMPRESSION: No acute findings. Dictated and Authenticated by: Nicolle Chambers MD. Ordering:BUTCH Montaño MD
--- NOTE | 2020-09-26 18:02 | PDOC.MHCN ---
Date of service: 09/26/20 Time of Service: 18:02 Mental Health Crisis Note Presenting Issue How did you arrive at the ED and why did you come: Client reports that [place] police brought him to the ED for making Suicidal statements. Client reports that this is false, he reports that the police told him they were going to lay me out, and I told them to do it <del>and</del> <del>they</del> <del>took</del> <del>that</del> <del>as</del> <del>him</del> <del>saying</del> <del>he</del> <del>wanted</del> <del>to</del> <del>.</del> Precipitating Factors Client reports no SI. Client reports no HI. Disposition BEHAVIOR: Client is cooperative with this television script writer. Client is dramatic when explaining the events that led to him coming to the ED. EYE CONTACT: Client makes eye contact throughout the assessment. MOOD: Clients mood is euthymic. AFFECT: Clients affect is normal. APPETITE: Client reports that he has been eating lots lately. SLEEP(trouble falling/staying asleep: Client reports that at times he has trouble staying asleep, but this is typical for him. Plan Client will go home with his home care provider through [facility]. Client reports that he has an appointment tomorrow with his therapist. Signature Clinician's Name/Title: Maddy Briceño [facility] Emergency Clinician
[2020-09-26 18:08] VITALS: BP 127/82; PULSE 88; RESP 16; TEMP 37.1; O2SAT 100
== END 2020-09-26 18:10 | disposition home or self-care (01) ==
PROVIDERS: Emergency Provider Physician Assistant
DX: S06.0X0A Concussion without loss of consciousness, initial encounter (principal); S50.811A Abrasion of right forearm, initial encounter; S00.03XA Contusion of scalp, initial encounter; H53.9 Unspecified visual disturbance
CPT/HCPCS: 99284; 70450; 72125

== ENCOUNTER 2020-12-05 13:42 | Day surgery (SDC) | payer MEDICAID, SELFPAY ==
[2020-12-05] VITALS (9 sets, daily range): BP systolic 133–148; BP diastolic 68–97; PULSE 85–109; RESP 11–17; TEMP 36.3–37; O2SAT 97–100
--- NOTE | 2020-12-05 13:55 | ED.GENADUL_ITS ---
Discharge Plan Disposition Patient Disposition: OTHER Condition: Stable Discharge Details Clinical Impression: Laceration of ankle, left, Arterial hemorrhage Primary Care Provider: None,None ED Provider: Mone Carter Discharge Data Discharge Date/Time-TO BE ENTERED AT DEPARTURE: 12/05/20 15:31 Medical Decision Making 24-year-old male who presents with left medial ankle laceration sustained after he dropped a sharp knife on his ankle while knife throwing. States his tetanus is up-to-date. There is a 2 cm straight laceration to medial malleolus with arterial bleeding noted. Per EMS, patient lost approximately 500 cc of blood. Patient refused an IV in route. Tourniquet placed. Unable to fully inspect wound due to it continually filling with blood but once holding pressure, no gross tendon injury or foreign body n oted. Attempted to ligate the vessel at bedside with Vicryl sutures but unsuccessful multiple times. 1000 mg of TXA soaked gauze and pressure dressing placed over wound and continued to bleed. Foot cold on arrival as he arrived from outside without wearing shoe, but skin color feels normal, motor or sensory grossly intact and distal pulses intact. Due to high acuity and volume in the ED, surgery paged. Dr. Au evaluated patient at bedside. Blood pressure cuff placed. She plans to take patient to the OR. She discussed case with Dr. Hanley who stated it was likely a saphenous vessel and can ligate. Surgery requesting Ancef and LR. Medical Records Medical records reviewed: Yes I reviewed the patient's medical records. HPI General Mode of arrival: ambulatory . Date/Time Provider Initiated Documentation: 12/05/20 13:54 . Limitations to Documentation: no limitations . Information obtained by: patient . HPI Narrative: Patient is a 24-year-old male presents with left medial ankle laceration after dropped a sharp knife on his ankle while knife throwing outside. Patient denies any intentional injury. EMS noted a large amount of bleeding and states he lost approximately 500 cc of blood. Patient refused an IV in route. Related Data Home Medications Medication Instructions Recorded Confirmed aripiprazole [Abilify] 10 mg PO DAILY 08/10/13 09/26/20 mirtazapine [Remeron] 22.5 mg PO DAILY 06/18/14 09/26/20 quetiapine [Seroquel XR] 100 mg PO .QHS 02/23/19 09/26/20 quetiapine [Seroquel] 50 mg PO .Q24HRS PRN 02/23/19 09/26/20 penicillin V potassium 500 mg PO TID #30 tab 01/10/20 09/26/20 acetaminophen 500 mg PO Q6H PRN PRN #60 tab 12/05/20 hydrocodone-acetaminophen 1 tab PO Q6H PRN #10 tab 12/05/20 ibuprofen 600 mg PO TID PRN #90 tab 12/05/20 Previous Rx's Medication Instructions Recorded penicillin V potassium 500 mg PO TID #30 tab 01/10/20 acetaminophen 500 mg PO Q6H PRN PRN #60 tab 12/05/20 hydrocodone-acetaminophen 1 tab PO Q6H PRN #10 tab 12/05/20 ibuprofen 600 mg PO TID PRN #90 tab 12/05/20 Allergies Allergy/AdvReac Type Severity Reaction Status Date / Time risperidone [From Risperdal] Allergy Intermediate Psychosis Unverified 12/05/20 13:56 General AGUSTINA: 2 Review of Systems All systems reviewed & are unremarkable except as noted in HPI and below Constitutional Constitutional: Reports as per HPI, Denies chills and Denies fever(s) Eyes Eyes: Denies blurry vision ENT Ears, Nose, Mouth, and Throat: Denies dizziness, Denies sore throat and Denies throat swelling Cardiovascular Cardiovascular: Denies chest pain and Denies dyspnea Respiratory Respiratory: Denies cough and Denies dyspnea Gastrointestinal Gastrointestinal: Denies abdominal pain, Denies diarrhea and Denies vomiting Genitourinary Genitourinary: Denies hematuria and Denies dysuria Musculoskeletal Musculoskeletal: Denies back pain and Denies numbness Integumentary/Breasts Skin/Breast: Denies lesions and Denies rash Neurologic Neurologic: Denies dizziness, Denies localized weakness and Denies numbness Allergic/Immunologic Allergic/Immunologic: Denies throat swelling PFSH Medical History ADHD Schizoaffective disorder Social History Smoking/Tobacco Use Status: Current-Occasional Tobacco Type: cigarettes and e- cigarettes Smoking risk assessment performed?: Yes Alcohol Intake: current Alcohol Intake frequency: holidays/special occasions only Substance use type: does not use Current gender identity: male Do you feel safe at home: Yes Do you feel safe in your relationship?: Yes Exam Const General: cooperative, healthy appearing and no acute distress HENMT Head: normal to inspection Mouth: oral mucosae normal Eyes General: appearance normal, both eyes and all related structures Neck Neck: normal visual inspection Resp Effort & Inspection: normal respiratory effort and able to speak in complete sentences Cardio Rate: regular rate Skin General skin exam: no rashes or lesions noted Neuro General: patient alert, patient awake and patient oriented x3 Motor: muscle tone normal throughout Extrem Ankle/foot/toe images: 1. 2 cm straight laceration noted to left medial malleolus. Arterial bleeding noted obstructing view. Able to hold pressure to posterior aspect which allows you within wound and there is no obvious tendon injury or foreign body. Psych Appearance: grossly normal Affect: normal affect
[2020-12-05] MEDS: Tranexamic Acid 1,000 MG/10 ML VIAL 1000 MG (14:44)
--- NOTE | 2020-12-05 15:33 | HPE_ITS ---
Date of service: 12/05/20 Time of Service: 15:33 Assessment and Plan Assessment and plan (1) Laceration of ankle, left: Status: Acute Assessment and plan: 24 year old male with a self inflicted laceration to the medial aspect of his ankle just above to the medial malleolus. There is arterial bleeding which has been controlled with a turnicate. Turnicate placed at 3 pm. Discussed taking him to the OR for exploration and most likely ligation of the artery. Dr. Hanley is here today and I have asked him to assist me. Risks, benefits and complications have been reviewed and the patient wishes to proceed. Complications include but are not limited to bleeding, infection, injury to tendons and nerves. Questions have been entertained and answered to his satisfaction and he wished to proceed. No guarantees were given or implied. Qualifiers: Encounter type: initial encounter Qualified Code(s): S91.012A - Laceration without foreign body, left ankle, initial encounter History of Present Illness History of Present Illness Chief Complaint: knife wound to left ankle Consults Consult date: 12/05/20 Requesting physician: Mone Carter Narrative: Melvin is a pleasant 24 year old male with a PMHx significant for TBI who was at home when he droped a throwing knife on his left leg. He sustained a 2 cm laceration just above the medial malleolus. He was brought in by EMS. They applied a pressure dressing to stop the bleeding. Per EMS the patient lost about 500 cc of blood en route. Dr. Carter attempted to find and ligate the bleeding artery but was unable so she called me. The patient has minimal pain. he is able to tolerate some exploration of the wound. He states he hasn't eaten all day. He is very anxious and states that he is going to bleed to . I have reassured him that he is doing fine and the bleeding is controlled at this time. Review of Systems Constitutional Constitutional: Denies fever(s), Denies headache(s), Denies weakness and Denies weight loss Eyes Eyes: Denies change in vision ENT Ears, Nose, Mouth, and Throat: Denies headache(s) Cardiovascular Cardiovascular: Denies chest pain, Denies chest pain at rest, Denies irregular heart rhythm, Denies palpitations, Denies dyspnea and Denies dyspnea on exertion Respiratory Respiratory: Denies cough, Denies hemoptysis, Denies dyspnea and Denies dyspnea on exertion Gastrointestinal Gastrointestinal: Reports system reviewed and no additional complaints, except as documented Musculoskeletal Musculoskeletal: Reports system reviewed and no additional complaints, except as documented Integumentary/Breasts Skin/Breast: Reports system reviewed and no additional complaints, except as documented Neurologic Neurologic: Reports system reviewed and no additional complaints, except as documented, Denies headache(s) and Denies weakness Endocrine Endocrine: Denies palpitations PFSH Medical History (Updated 12/05/20 @ 15:42 by Mallory Au MD) ADHD Schizoaffective disorder Social History Smoking/Tobacco Use Status: Current-Occasional Tobacco Type: cigarettes and e- cigarettes Smoking risk assessment performed?: Yes Alcohol Intake: current Alcohol Intake frequency: holidays/special occasions only Substance use type: does not use Do you feel safe at home: Yes Do you feel safe in your relationship?: Yes Meds Home Medications and Allergies Home Medications Medication Instructions Recorded Confirmed Type aripiprazole [Abilify] 10 mg PO DAILY 08/10/13 09/26/20 History mirtazapine [Remeron] 22.5 mg PO DAILY 06/18/14 09/26/20 History quetiapine [Seroquel XR] 100 mg PO .QHS 02/23/19 09/26/20 History quetiapine [Seroquel] 50 mg PO .Q24HRS PRN 02/23/19 09/26/20 History penicillin V potassium 500 mg PO TID #30 tab 01/10/20 09/26/20 Rx Allergies Allergy/AdvReac Type Severity Reaction Status Date / Time risperidone [From Risperdal] Allergy Intermediate Psychosis Unverified 12/05/20 13:56 Exam Const General: comfortable and anxious Orientation: alert and oriented x3 HENMT Head: normocephalic and atraumatic Resp Effort & Inspection: normal respiratory effort Auscultation: clear to auscultation bilaterally Cardio Rate: regular rate Rhythm: regular rhythm Heart Sounds: no gallops, no murmurs and no rubs Pulses: popliteal pulses present, posterior tibial pulses present and dorsalis pedis present Extrem Left lower extremity: no joint enlargement and lower leg Details: penetrating wound Ankle/foot/toe images: 1. 2 cm laceration that goes down right next to the tibia. Arterial bleeding noted. Vessel not visualized Results Labs Result diagrams: 12/05/20 15:23 12/05/20 15:23 Last Vital Signs Temp 98.6 F 12/05/20 13:50 Pulse 89 12/05/20 13:50 Resp 16 12/05/20 13:50 BP 148/97 H 12/05/20 13:50 Pulse Ox 98 12/05/20 13:50
[2020-12-05] MEDS: ceFAZolin 2 GM/50 ML BAG IVPB (15:38)
[2020-12-05] MEDS: Lactated Ringers 1,000 ML 80 ML IV ×2 (15:38→18:36)
[2020-12-05 15:57] LABS: Abs Immature Grans 0.05 10^3/uL (0.0-0.06); Absolute Eosinophil Count 0.01 10^3/uL (0.0-0.7); Absolute Lymphocyte Count 1.01 10^3/uL (1.2-3.4); Absolute Monocyte Count 0.42 10^3/uL (0.1-0.8); Basophils % 0.3; Eosinophils % 0.1; HCT 43.9 % (40.0-50.0); HGB 15.8 g/dL (13.5-17.5); Immature Grans % 0.4; Lymphocytes % 8.7; MCV 83.5 fL (80-95); MPV 10.3 fL (8.0-11.0); Monocytes % 3.6; Neutrophils % 86.9; Nucleated RBC 0 %; Platelet Count 215 10^3/uL (130-400); RBC 5.26 10^6/uL (4.36-5.78); RDW 12.3 % (11.8-14.1); RDW-SD 37.2 fL; WBC 11.56 10^3/uL (4.4-10.8)
[2020-12-05 16:00] LABS: Absolute Basophil Count 0.03 10^3/uL (0.0-0.2); Absolute Neutrophil Count 10.05 10^3/uL (1.2-6.7)
[2020-12-05 16:01] LABS: Anion Gap 6.6 mmol/L (3-11); BUN 16 mg/dL (7-18); CO2 28.4 mmol/L (21.0-32.0); CREATININE 1.06 mg/dL (0.70-1.30); Calcium 9.3 mg/dL (8.5-10.1); Chloride 102 mmol/L (98-107); Glucose 99 mg/dL (74-106); Potassium 3.7 mmol/L (3.5-5.1); Sodium 137 mmol/L (136-145)
[2020-12-05 17:08] LABS: Source Nasopharynx
--- NOTE | 2020-12-05 17:43 | DSE_ITS ---
Date of service: 12/05/20 Time of Service: 17:43 DS: Diagnosis Discharge Diagnosis (1) Laceration of ankle, left: Status: Acute Discharge Plan Disposition Patient Disposition: HOME Condition: Stable Discharge Details Reason For Visit: CASH Attending Provider: Mallory Au Primary Care Provider: None,None Home Meds and New Rx's Prescriptions: New acetaminophen 500 mg tablet 500 mg PO Q6H PRN PRN (Reason: pain) Qty: 60 RF: 3 hydrocodone-acetaminophen 5-325 mg tablet 1 tab PO Q6H PRN (Reason: pain) Qty: 10 RF: 0 ibuprofen 600 mg tablet 600 mg PO TID PRN (Reason: pain) Qty: 90 RF: 3 Continued aripiprazole [Abilify] 20 MG tablet 10 mg PO DAILY RF: 0 mirtazapine [Remeron] 15 MG tablet 22.5 mg PO DAILY RF: 0 quetiapine [Seroquel] 50 mg Tablet 50 mg PO .Q24HRS PRNRF: 0 quetiapine [Seroquel XR] 50 mg Tablet Extended Release 24 Hr 100 mg PO .QHS RF: 0 penicillin V potassium 500 mg tablet 500 mg PO TID Qty: 30 RF: 0 Discharge Instructions Additional Instructions: Activity: You are NON WEIGHT BEARING. You may use the crutches for mobilization. You should keep the leg elevated as much as possible. You may wiggle your toes and move your hip and knee. Dressings: You should keep your splint clean and dry. Do NOT get wet or dirty. If you have issues with your splint, please call the office at [phone] or the hospital after hours. Medications: - You should take Tylenol and Ibuprofen around the clock for baseline pain. - You have been prescribed a stronger narcotic, Hydrocodone, for breakthrough pain. Follow-up: 2 weeks If you have any acute concerns or questions, please do not hesitate to contact the office at [phone]. You may contact Dr. Hanley with any questions after hours through the hospital at [phone] or on his cell phone at [phone]. Referrals: Ashutosh Hanley MD [ [facility] STAFF PHYSICIAN] - Equipment/Supplies: Non-Weight Bearing Crutches Activity:: Elevate Remove Dressings/Wound Care:: Do Not Remove Shower/Bathe:: Cover Diet:: As Tolerated Discharge Orders Discharge Orders: Discharge Order (Routine); Ordered 12/05/20 Ordered By: Ashutosh Hanley DS: Summary Status at Discharge Functional status at discharge: uses cane/walker Overall status at discharge: patient is progressing back to baseline Mental Status: mental status grossly normal Speech and Movement: speech and movement normal Mood: congruent mood Affect: normal affect Exam Psych Mental Status: mental status grossly normal Speech and Movement: speech and movement normal Mood: congruent mood Affect: normal affect DS: Data Vitals/I&O Vitals and I&O: Vital Signs Temperature 37.0 C 12/05/20 13:50 Temperature Source Skin 12/05/20 13:50 Pulse 89 12/05/20 13:50 Respiratory Rate 16 12/05/20 13:50 Respiratory Effort 12/05/20 13:57 Blood Pressure 148/97 H 12/05/20 13:50 Blood Pressure Position Supine 12/05/20 13:50 Pulse Oximetry 98 12/05/20 13:50 Oxygen Delivery Method Room Air 12/05/20 13:50 Oxygen Flow Rate 0 12/05/20 13:50 Pain Level 2 12/05/20 13:50 Intake & Output 12/04/20 12/05/20 12/05/20 23:59 11:59 23:59 Intake Total 900 / 900 Output Total 300 / 300 Balance 600 / 600 Weight 58.967 kg Intake: IV 900 / 900 Output: Urine 300 / 300 Other: Urine Color Yellow Urine Appearance Clear Data Completed and Pending Labs on day of discharge: Labs from last 24 hours 12/05/20 12/05/20 12/05/20 16:59 16:54 15:43 WBC 11.56 H RBC 5.26 Hgb 15.8 Hct 43.9 MCV 83.5 MCH 30.0 MCHC 36.0 RDW 12.3 Plt Count 215 MPV 10.3 Immature Gran % 0.4 Neutrophils % 86.9 Lymphocytes % 8.7 Monocytes % 3.6 Eosinophils % 0.1 Basophils % 0.3 Nucleated RBC % 0 Absolute Neutrophils 10.05 H Absolute Lymphocytes 1.01 L Absolute Monocytes 0.42 Absolute Eosinophils 0.01 Absolute Basophils 0.03 Sodium Potassium Chloride Carbon Dioxide Anion Gap BUN Creatinine Estimated GFR/1.73 m2 Glucose Calcium COVID-19 Source Pending SARS-CoV-2 (PCR) Pending Cancelled Nasopharyn COVID-19 PCR Cancelled Ref Test Perform Site Cancelled 12/05/20 15:43 WBC RBC Hgb Hct MCV MCH MCHC RDW Plt Count MPV Immature Gran % Neutrophils % Lymphocytes % Monocytes % Eosinophils % Basophils % Nucleated RBC % Absolute Neutrophils Absolute Lymphocytes Absolute Monocytes Absolute Eosinophils Absolute Basophils Sodium 137 Potassium 3.7 Chloride 102 Carbon Dioxide 28.4 Anion Gap 6.6 BUN 16 Creatinine 1.06 Estimated GFR/1.73 m2 >= 60.00 Glucose 99 Calcium 9.3 COVID-19 Source SARS-CoV-2 (PCR) Nasopharyn COVID-19 PCR Ref Test Perform Site [facility] Medical History ADHD Schizoaffective disorder Social History Smoking/Tobacco Use Status: Current-Occasional Tobacco Type: cigarettes and e- cigarettes Smoking risk assessment performed?: Yes Alcohol Intake: current Alcohol Intake frequency: holidays/special occasions only Substance use type: does not use Current gender identity: male Do you feel safe at home: Yes Do you feel safe in your relationship?: Yes
[2020-12-05 17:46] LABS: COVID-19 PCR Negative (Negative); Influenza A PCR Negative (Negative); Influenza B PCR Negative (Negative); RSV PCR Negative (Negative)
--- NOTE | 2020-12-05 17:51 | OCONE_ITS ---
Date of service: 12/05/20 Time of Service: 15:39 History of Present Illness History of Present Illness Chief Complaint: Left Leg Laceration Narrative: Melvin is a 24-year-old who dropped a throwing knife on his left distal leg soon prior to arrival. He was seen in the emergency department with active bleeding which could not be controlled and Dr. Au was called for consultation. She was unable to find the source of the bleeding and saw muscle involvement as well. A tourniquet was placed at 3:00 and he recommended proceeding to the operating room. She contacted me shortly thereafter and asked for my assistance with this case. I was able to see Robert briefly prior to proceeding to the operating room. He reported pain about the left ankle. He denies numbness or tingling. He reported brisk bleeding since the time of the injury. He denied any issues with this left leg in the past. Consults Consult date: 12/05/20 Requesting physician: Mallory Au Consult Reason Left leg laceration with arterial and tendon involvement Assessment and Plan Assessment and plan (1) Posterior tibial tendon tear, traumatic: Status: Acute Assessment and plan: Melvin is a 24-year-old who suffered a self-inflicted laceration by knife to the medial aspect of his left leg. I was asked by Dr. Au to assist with this case. Intraoperatively, we discovered a branch of the posterior tibial artery which was lacerated. This was tied and hemostasis achieved. There was significant muscular damage to the posterior tibial tendon the muscle. The tendon ends were identified and then repaired. Given the tendon involvement I offered to take over the care of the case. Robert was placed into a posterior slab splint in a position of inversion. I will admit him for observation and likely discharge later tonight. He will require nonweightbearing status for at least 6 weeks and physical therapy. I also discussed the case with his home care provider and primary medical care evaluation specialist, Abebe Prescott. Qualifiers: Encounter type: initial encounter Laterality: left Qualified Code(s): S86.112A - Strain of other muscle(s) and tendon(s) of posterior muscle group at lower leg level, left leg, initial encounter (2) Laceration of ankle, left: Status: Acute Qualifiers: Encounter type: initial encounter Qualified Code(s): S91.012A - Laceration without foreign body, left ankle, initial encounter (3) Arterial hemorrhage: Status: Acute Review of Systems All systems reviewed & are unremarkable except as noted in HPI and below PFSH Medical History ADHD Schizoaffective disorder Social History Smoking/Tobacco Use Status: Current-Occasional Tobacco Type: cigarettes and e- cigarettes Smoking risk assessment performed?: Yes Alcohol Intake: current Alcohol Intake frequency: holidays/special occasions only Substance use type: does not use Do you feel safe at home: Yes Do you feel safe in your relationship?: Yes Exam Narrative Exam Narrative: Laying on the hospital stretcher. Obvious wound of about 3 cm running transversely approximate 6 cm proximal to the knee to malleolus over the medial aspect of the distal left leg. Apparent muscle within the depths of the wound and signs of active bleeding although no bleeding currently with tourniquet on left leg. Results Last Vital Signs Temp 36.6 C 12/05/20 17:53 Pulse 89 12/05/20 17:53 Resp 15 12/05/20 17:53 BP 135/80 12/05/20 17:53 Pulse Ox 99 12/05/20 17:53 Labs Result diagrams: 12/05/20 15:43 12/05/20 15:43 Labs: Laboratory Results - last 24 hr 12/05/20 12/05/20 12/05/20 15:43 15:43 16:54 WBC 11.56 H RBC 5.26 Hgb 15.8 Hct 43.9 MCV 83.5 MCH 30.0 MCHC 36.0 RDW 12.3 Plt Count 215 MPV 10.3 Immature Gran % 0.4 Neutrophils % 86.9 Lymphocytes % 8.7 Monocytes % 3.6 Eosinophils % 0.1 Basophils % 0.3 Nucleated RBC % 0 Absolute Neutrophils 10.05 H Absolute Lymphocytes 1.01 L Absolute Monocytes 0.42 Absolute Eosinophils 0.01 Absolute Basophils 0.03 Sodium 137 Potassium 3.7 Chloride 102 Carbon Dioxide 28.4 Anion Gap 6.6 BUN 16 Creatinine 1.06 Estimated GFR/1.73 m2 >= 60.00 Glucose 99 Calcium 9.3 SARS-CoV-2 (PCR) Cancelled Nasopharyn COVID-19 PCR Cancelled Ref Test Perform Site Cancelled
--- NOTE | 2020-12-05 19:21 | W.PM.OP ---
Date of service: 12/05/20 Time of Service: 18:05 Operative Note Operative Note DATE OF PROCEDURE: 12/05/20 PRE-OP DIAGNOSIS: Left Leg Laceration POST-OP DIAGNOSIS: other (Left Leg Laceraton with Posterior Tibial Artery Branch Laceration, Posterior Tibial Tendon Laceration) PROCEDURE: Left leg laceration (3cm) irrigation and debridemetnt, arterial branch ligation, and posterior tibial tendon repair. SURGEON: Ashutosh Hanley ASSISTING SURGEON: Mallory Au SLICING MACHINE OPERATOR/TENDER: Tigist Ramesh ANESTHESIA: GETOfelia ESTIMATED BLOOD LOSS: 50 TOURNIQUET TIME: 8 COMPLICATIONS: None Patient was transported to: PACU Patient's condition: stable Indications: Melvin is a 24-year-old who was knife throwing but excellently dropped one knife. This landed on the medial aspect of his left leg. He had immediate bleeding was unable to control bleeding at home. He presented to the emergency department. The emergency department they were unable to find the bleeding vessel and Dr. Au was consulted. Given the location of the injury and the possible involvement of muscles and tendons, she asked me to consult on the case. She discussed operative intervention. Given that there is lack of bleeding control tourniquet was applied emergency department therefore she recommended we proceed to the operating room for more formal vessel identification and treatment. Risk of the procedure were reviewed to include bleeding, infection, pain, stiffness, damage to nerves and vessels, damage to muscle tendons, need for repeat procedures. Despite these risk, he elected to proceed. Findings: There is a large branch of the posterior tibial artery which was transected, identified, and ligated. The knife wound went down through the entirety of the posterior tibial tendon and made a small indentation in the tibia. This tendon was able to be directly repaired with #2 FiberWire. Procedure Description: Melvin is a 24-year-old who was greeted in the preoperative holding area after being brought to the emergency department. He was quickly taken back to the operating room. A timeout was performed for safe surgery. Prophylactic antibiotics in the form of cefazolin were administered. A tourniquet was placed high up the left thigh. Leg was elevated 2 minutes while was being prepped with Betadine and this thigh tourniquet was then inflated and the tourniquet was was placed in the calf earlier was deflated. Prep continued up to the level of the knee and drape was applied. The transverse incision over the medial aspect was (in a more longitudinal incision was made both proximal and distal on the medial leg. Fashion posterior tibial tendon and muscle was opened. With visualization now, the tourniquet was deflated and there was obvious arterial injury. It is difficult to appreciate the location of this arterial injury. It was deep posterior tibial tendon. Eventually the artery was identified. It was moved transversely, posterior position, likely primary branch from the posterior tibial artery. This was tied with a 0 Vicryl. The tourniquet was down and there was good hemostasis and no active bleeding. This was a proximal stump. The distal stump was not identified there is no bleeding. This point further irrigation debridement was performed to identify the posterior tibial tendon. There is notable retraction of the posterior tibial tendon. The tendon stumps were identified which were surrounded by some muscle belly. With maneuvering of the foot into position of inversion the distal tendon was brought into the wound. A #2 Fiber[address] was utilized to place a locking Krak?w type stitch in this tendon. Similarly, a locking Krak?w type stitch was placed into the proximal aspect. The separation of these 2 tendon edges was by at least 3 to 4 cm and therefore separate sutures were placed in each. Once abundant suture fixation was obtained in each tendon edge these were then reduced by manually reducing the suture limbs. The sutures were then each tied. An epitendinous suture was then placed using 4-0 nylon. The foot was tested and showed that the tendon was intact even to position of eversion. There is no gapping appreciated at the laceration site. The wounds and thoroughly irrigated with 1 L of normal saline. There is no gross debris. No contamination. The deep tissues were closed with a 3-0 Vicryl. The skin was closed with 4-0 nylon. Xeroform, 4 x 4's, web roll were applied. A plaster posterior slab splint was then fashioned in a position of inversion. At the end of the case all counts are correct. He tolerated the procedure well. He is awake and anesthesia taken to the PACU in stable condition..
[2020-12-05] MEDS: Acetaminophen 500 MG TAB 1000 MG PO (19:29)
[2020-12-05] MEDS: Aspirin E.C. 81 MG TABEC PO (19:30)
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
== END 2020-12-05 20:22 | disposition home or self-care (01) ==
LOC: ER 15:25 → DSU 15:27 → MS 18:34
PROVIDERS: Emergency Provider Physician Assistant; Visit Provider Surgery
PROC: (CPT 27658; principal; 2020-12-05 15:15)
DX: S85.172A Laceration of posterior tibial artery, left leg, initial encounter (principal); S86.122A Laceration of other muscle(s) and tendon(s) of posterior muscle group at lower leg level, left leg, initial encounter; W26.0XXA Contact with knife, initial encounter
CPT/HCPCS: 27658; 11043; 36415; 80048; 96374; 99223; 99252; 99285; NC; U0003; 85025; 99284; E0114; J0690; J1100; J2001; J2250; J2405; J2704

== ENCOUNTER 2020-12-06 06:25 | Emergency (ER) | payer MEDICAID, SELFPAY ==
[2020-12-06 05:42] VITALS: BP 138/73; PULSE 100; RESP 18; O2SAT 100
--- NOTE | 2020-12-06 05:54 | ED.GENADUL_ITS ---
Discharge Plan Disposition Patient Disposition: HOME Condition: Stable Discharge Details Clinical Impression: Post-op bleeding Primary Care Provider: None,None ED Provider: Juan Antonio Bishop Home Meds and New Rx's Prescriptions: Continued aripiprazole [Abilify] 20 MG tablet 10 mg PO DAILY RF: 0 mirtazapine [Remeron] 15 MG tablet 22.5 mg PO DAILY RF: 0 quetiapine [Seroquel] 50 mg Tablet 50 mg PO .Q24HRS PRNRF: 0 quetiapine [Seroquel XR] 50 mg Tablet Extended Release 24 Hr 100 mg PO .QHS RF: 0 penicillin V potassium 500 mg tablet 500 mg PO TID Qty: 30 RF: 0 acetaminophen 500 mg tablet 500 mg PO Q6H PRN PRN (Reason: pain) Qty: 60 RF: 3 hydrocodone-acetaminophen 5-325 mg tablet 1 tab PO Q6H PRN (Reason: pain) Qty: 10 RF: 0 ibuprofen 600 mg tablet 600 mg PO TID PRN (Reason: pain) Qty: 90 RF: 3 Discharge Instructions Additional Instructions: your bleed today was just from the wound not the artery try to avoid hitting the leg if possible if you have bleeding that doesn't stop or severe worsening pain return to the emergency department follow up with Dr. dang as scheduled Medical Decision Making 24 yo male who had to go to the OR yesterday after he dropped a knife and had an arterial bleed in his left lower leg. He had the procedure done with Dr. dang and he was able to obtain hemostasis, and was placed in aposterior leg splint. This morning he was using his crutches and slipped on the rug and hit is left leg on the leg. He noticed some blood on the medial splint so called ems. On arrival does have small 2cm area of blood on medial lower left leg near the ankle, intact sensation and cap refill. I took the troy wraps off and removed the padding to get to the site where the skin was closed. There is no active bleeding and sutures are intact. Suspect this was hematoma or small wound bleed that resolved, no indication of arterial bleed. I reapplid the posterior splint and discussed case with Dr. Dang who is in agreement and will f/u with him as schduled. Return precautions given Differential Diagnosis Differential Diagnosis: hematoma, post op bleeding Medical Records Medical records reviewed: Yes I reviewed the patient's medical records. HPI General Mode of arrival: ambulatory . Limitations to Documentation: no limitations . Information obtained by: patient . History of Present Illness 24 year old M presents to the emergency department with the chief complaint of bleeding from wound, described as moderate, and it has been constant. No relieving factors improve symptom(s), No exacerbating factors reported . Patient did receive the following treatments prior to arrival, none Related Data Home Medications Medication Instructions Recorded Confirmed aripiprazole [Abilify] 10 mg PO DAILY 08/10/13 09/26/20 mirtazapine [Remeron] 22.5 mg PO DAILY 06/18/14 09/26/20 quetiapine [Seroquel XR] 100 mg PO .QHS 02/23/19 09/26/20 quetiapine [Seroquel] 50 mg PO .Q24HRS PRN 02/23/19 09/26/20 penicillin V potassium 500 mg PO TID #30 tab 01/10/20 09/26/20 acetaminophen 500 mg PO Q6H PRN PRN #60 tab 12/05/20 hydrocodone-acetaminophen 1 tab PO Q6H PRN #10 tab 12/05/20 ibuprofen 600 mg PO TID PRN #90 tab 12/05/20 Previous Rx's Medication Instructions Recorded penicillin V potassium 500 mg PO TID #30 tab 01/10/20 acetaminophen 500 mg PO Q6H PRN PRN #60 tab 12/05/20 hydrocodone-acetaminophen 1 tab PO Q6H PRN #10 tab 12/05/20 ibuprofen 600 mg PO TID PRN #90 tab 12/05/20 Allergies Allergy/AdvReac Type Severity Reaction Status Date / Time risperidone [From Risperdal] Allergy Intermediate Psychosis Unverified 12/05/20 13:56 General Stated Complaint: Laceration AGUSTINA: 3 Review of Systems All systems reviewed & are unremarkable except as noted in HPI and below Constitutional Constitutional: Denies chills and Denies fever(s) Cardiovascular Cardiovascular: Denies chest pain and Denies dyspnea Respiratory Respiratory: Denies cough and Denies dyspnea Gastrointestinal Gastrointestinal: Denies abdominal pain, Denies nausea and Denies vomiting [facility] Medical History ADHD Schizoaffective disorder Social History Smoking/Tobacco Use Status: Current-Occasional Tobacco Type: cigarettes and e- cigarettes Smoking risk assessment performed?: Yes Alcohol Intake: current Alcohol Intake frequency: holidays/special occasions only Substance use type: does not use Current gender identity: male Do you feel safe at home: Yes Do you feel safe in your relationship?: Yes Exam Const General: no acute distress Orientation: alert HENMT Head: normal to inspection Ears: external ears normal General nose exam: external nose normal Mouth: moist mucous membranes Eyes General: appearance normal, both eyes and all related structures Neck Neck: normal visual inspection Resp Effort & Inspection: normal respiratory effort and able to speak in complete sentences Cardio Rate: regular rate Skin General skin exam: no rashes or lesions noted Neuro General: patient alert and patient oriented x3 Extrem General: capillary refill normal Psych Mental Status: mental status grossly normal Course Vital Signs Vital signs: Vital Signs Pulse 100 H 12/06/20 05:42 Blood Pressure 138/73 12/06/20 05:42 Pulse Oximetry 85 L 12/06/20 05:42 Pulse 100 H 12/06/20 05:42 Respiratory Effort Non-Labored 12/06/20 05:49 Blood Pressure 138/73 12/06/20 05:42 Blood Pressure Position Supine 12/06/20 05:42 Pulse Oximetry 85 L 12/06/20 05:42 Oxygen Delivery Method Room Air 12/06/20 05:42 Oxygen Flow Rate 0 12/06/20 05:42 Pain Level 2 12/06/20 05:50
[2020-12-06] MEDS: HYDROcodone 5/Acetaminophen 325 TAB PO (06:10)
[2020-12-06 06:38] VITALS: BP 130/70; PULSE 100; RESP 18; TEMP 36.8; O2SAT 100
== END 2020-12-06 07:50 | disposition home or self-care (01) ==
LOC: ER 06:28
PROVIDERS: Emergency Provider Emergency Medicine
DX: T81.31XA Disruption of external operation (surgical) wound, not elsewhere classified, initial encounter (principal)
CPT/HCPCS: 99283

== ENCOUNTER 2021-10-16 20:52 | Outpatient (REF) | payer MEDICAID, SELFPAY ==
[2021-10-18 15:09] LABS: Chlamydia Result Negative (Negative); GC Result Negative (Negative)
== END 2021-10-16 20:53 | disposition home or self-care (01) ==
LOC: NCHCN 20:52
PROVIDERS: Visit Provider Physician Assistant
DX: Z11.3 Encounter for screening for infections with a predominantly sexual mode of transmission (principal)
CPT/HCPCS: 87491; 87591

== ENCOUNTER 2021-11-01 12:39 | Emergency (ER) | payer MEDICAID, SELFPAY ==
[2021-11-01 12:47] VITALS: BP 133/92; PULSE 68; RESP 16; TEMP 36.7; O2SAT 100
--- NOTE | 2021-11-01 14:40 | ED.FU.B_ITS ---
Patient eloped from the emergency department while being evaluated by MICHAEL Sherman. Based on initial assessment, MICHAEL Sherman has significant concerns regarding patient suicidality and that he is at risk of harming himself and others. Local law enforcement was contacted to assist in locating the patient and bringing him back to the emergency department for emergency evaluation. [facility] police department was able to locate the patient and called noting he is in the [facility] police department lobby. They contacted us to inquire if he should be brought back to the emergency department. They were informed that patient should be brought back to emergency from and immediately for further evaluation as part of EE screen.
== END 2021-11-01 14:37 ==
PROVIDERS: PCP Physician Assistant
DX: Z53.29 Procedure and treatment not carried out because of patient's decision for other reasons (principal)

== ENCOUNTER 2021-11-01 15:07 | Emergency (ER) | payer MEDICAID, SELFPAY ==
--- NOTE | 2021-11-01 15:11 | W.ED.GENAD ---
Discharge Plan Disposition Patient Disposition: HOME Condition: Stable Discharge Details Clinical Impression: Depression, COVID-19 Primary Care Provider: Loco Brice ED Provider: Mone Carter Home Meds and New Rx's Prescriptions: Continued acetaminophen 500 mg tablet 500 mg PO Q6H PRN PRN (Reason: pain) Qty: 60 RF: 3 ibuprofen 600 mg tablet 600 mg PO TID PRN (Reason: pain) Qty: 90 RF: 3 aripiprazole 5 mg tablet 5 mg PO DAILY RF: 0 quetiapine 50 mg tablet 50 mg PO .QHS RF: 0 Discharge Instructions Instructions: Depression (ED), COVID-19 (Coronavirus Disease 2019) (ED) Additional Instructions: Follow-up with your patient case manager and aerial photographer Antnoio for referral to behavioral health and continued management of your depression and your regular medications. Continue your regular medications as directed. Your lab test today revealed that you have COVID-19. Although you are asymptomatic, it is important that you quarantine until directed otherwise by the department of health or your primary care doctor. Call your primary care doctor for re-evaluation and whether you qualify for outpatient monoclonal antibody infusion. Drink plenty of fluids and get plenty of rest. Alternate tylenol and motrin as needed and directed for pain. Return immediately to the emergency department if you develop any worsening or new concerning symptoms. Discharge Data Discharge Date/Time-TO BE ENTERED AT DEPARTURE: 11/01/21 17:35 Discharge Physician: Mone Carter Medical Decision Making 1610 -- 25-year-old male with a history of ADHD, schizoaffective disorder and autism presents by police after he ran out of the ED during evaluation for a complaint of wanting to harm himself today. PD were instructed to return the patient to the ED for potentially an EE screen. Patient is cooperative and answering questions and agreeable to evaluation and blood work. He does endorse thoughts of wanting to harm himself this morning but currently denies this. He states he would not want psychiatric placement. His vitals are within normal limits and he has no acute medical complaints. From my perspective, he is medically cleared. Will obtain screening labs and call mental health for evaluation. Labs reviewed and unremarkable. 1700 -- patient evaluated by Gerard with mental health and cleared for discharge. Patient currently not endorsing any suicidal ideation. Patient currently does not meet criteria for EE or psychiatric placement. Of note, patient's Covid test is positive. Patient was informed to follow-up with his PCP for further evaluation and whether he qualifies for monoclonal antibody infusion as he is currently asymptomatic and unclear of time of onset. Close contacts informed. Patient will follow up with mental health per his patient case manager and aerial photographer. Medical Records Medical records reviewed: Yes I reviewed the patient's medical records. Lab Data Lab results reviewed: Yes I reviewed the patient's lab results. Labs: Laboratory Tests Range/Units 11/01/21 11/01/21 11/01/21 15:46 15:46 15:46 WBC (4.4-10.8) 10^3/uL 7.11 RBC (4.36-5.78) 10^6/uL 5.39 Hgb (13.5-17.5) g/dL 15.7 Hct (40.0-50.0) % 45.7 MCV (80-95) fL 84.8 MCH (27.0-33.0) pg 29.1 MCHC (32.0-36.0) % 34.4 RDW (11.8-14.1) % 12.7 Plt Count (130-400) 10^3/uL 239 MPV (8.0-11.0) fL 10.3 Immature Gran % 0.3 Neutrophils % 69.5 Lymphocytes % 24.1 Monocytes % 5.5 Eosinophils % 0.3 Basophils % 0.3 Nucleated RBC % % 0 Absolute Neutrophils (1.2-6.7) 10^3/uL 4.95 Absolute Lymphocytes (1.2-3.4) 10^3/uL 1.71 Absolute Monocytes (0.1-0.8) 10^3/uL 0.39 Absolute Eosinophils (0.0-0.7) 10^3/uL 0.02 Absolute Basophils (0.0-0.2) 10^3/uL 0.02 Sodium (136-145) mmol/L 141 Potassium (3.5-5.1) mmol/L 3.8 Chloride (98-107) mmol/L 104 Carbon Dioxide (21.0-32.0) mmol/L 29.1 Anion Gap (3-11) mmol/L 7.9 BUN (7-18) mg/dL 13 Creatinine (0.70-1.30) mg/dL 1.0 Estimated GFR/1.73 m2 (mL/min/1.73m2) >= 60.00 Glucose (74-106) mg/dL 82 Calcium (8.5-10.1) mg/dL 9.8 Total Bilirubin (0.2-1.0) mg/dL 0.8 AST (15-37) U/L 17 ALT (16-63) U/L 17 Alkaline Phosphatase (46-116) U/L 101 Total Protein (6.4-8.2) g/dL 8.4 H Albumin (3.4-5.0) g/dL 4.8 Urine Opiates Screen (Negative) Negative Urine Methadone Screen (Negative) Negative Ur Barbiturates Screen (Negative) Negative Ur Tricyclics Screen (Negative) Negative Ur Amphetamines Screen (Negative) Negative U Benzodiazepines Scrn (Negative) Negative Urine Cocaine Screen (Negative) Negative Ur THC Screen (Negative) Negative Ethyl Alcohol (<10) mg/dL < 3.0 COVID-19 Source SARS-CoV-2 (PCR) (Negative) Range/Units 11/01/21 15:55 WBC (4.4-10.8) 10^3/uL RBC (4.36-5.78) 10^6/uL Hgb (13.5-17.5) g/dL Hct (40.0-50.0) % MCV (80-95) fL MCH (27.0-33.0) pg MCHC (32.0-36.0) % RDW (11.8-14.1) % Plt Count (130-400) 10^3/uL MPV (8.0-11.0) fL Immature Gran % Neutrophils % Lymphocytes % Monocytes % Eosinophils % Basophils % Nucleated RBC % % Absolute Neutrophils (1.2-6.7) 10^3/uL Absolute Lymphocytes (1.2-3.4) 10^3/uL Absolute Monocytes (0.1-0.8) 10^3/uL Absolute Eosinophils (0.0-0.7) 10^3/uL Absolute Basophils (0.0-0.2) 10^3/uL Sodium (136-145) mmol/L Potassium (3.5-5.1) mmol/L Chloride (98-107) mmol/L Carbon Dioxide (21.0-32.0) mmol/L Anion Gap (3-11) mmol/L BUN (7-18) mg/dL Creatinine (0.70-1.30) mg/dL Estimated GFR/1.73 m2 (mL/min/1.73m2) Glucose (74-106) mg/dL Calcium (8.5-10.1) mg/dL Total Bilirubin (0.2-1.0) mg/dL AST (15-37) U/L ALT (16-63) U/L Alkaline Phosphatase (46-116) U/L Total Protein (6.4-8.2) g/dL Albumin (3.4-5.0) g/dL Urine Opiates Screen (Negative) Urine Methadone Screen (Negative) Ur Barbiturates Screen (Negative) Ur Tricyclics Screen (Negative) Ur Amphetamines Screen (Negative) U Benzodiazepines Scrn (Negative) Urine Cocaine Screen (Negative) Ur THC Screen (Negative) Ethyl Alcohol (<10) mg/dL COVID-19 Source Nasal/Nares SARS-CoV-2 (PCR) (Negative) POSITIVE A* HPI General Mode of arrival: ambulatory. Date/Time Provider Initiated Documentation: 11/01/21 15:10. Limitations to Documentation: no limitations. Information obtained by: patient and police. HPI Narrative: Patient is a 25-year-old male with history of ADHD, schizoaffective disorder and autism presents by police after brought back to the emergency department after he ran out of the ED during evaluation for a psychiatric evaluation in the last hour. Patient initially presented after making statements that he wanted to harm himself. 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 Patient states he felt that he was having these thoughts and was also concerned he was potentially going to black out and harm himself. He states he told his boss that he needed away from the knives because he thought he could black out and hurt myself. He denies any thoughts of wanting to harm others. He states he drank 1 beer last night otherwise does not regularly drink alcohol. He denies any drug use. He states he has not been taking his Abilify and mirtazapine but has been taking his Seroquel and his last dose was last evening. He states his prescriber is planning to lower his medication as it is making him more sleepy during the day. His aerial photographer Antonio who administers his medications daily states the patient has not taken his medication for the past 8 days. He also reported the patient had been living at the [facility] and until today as he is now currently homeless. Patient was in intermediate for the past 4 months and released 1 month ago and is currently on probation for the next 4 years. The officer that presented with the patient states he has violated his parole if he was drinking alcohol last night. Patient states he has become more spiritual since his incarceration and feels that praying to God has helped him through tough times and he feels this is a good coping mechanism for him. Related Data Home Medications Medication Instructions Recorded Confirmed acetaminophen 500 mg PO Q6H PRN PRN #60 tab 12/05/20 11/01/21 ibuprofen 600 mg PO TID PRN #90 tab 12/05/20 11/01/21 aripiprazole 5 mg PO DAILY 11/01/21 11/01/21 quetiapine 50 mg PO .QHS 11/01/21 11/01/21 Previous Rx's Medication Instructions Recorded acetaminophen 500 mg PO Q6H PRN PRN #60 tab 12/05/20 ibuprofen 600 mg PO TID PRN #90 tab 12/05/20 Allergies Allergy/AdvReac Type Severity Reaction Status Date / Time risperidone [From Risperdal] Allergy Intermediate Psychosis Unverified 11/01/21 15:55 General AGUSTINA: 2 Review of Systems All systems reviewed & are unremarkable except as noted in HPI and below Constitutional Constitutional: Reports as per HPI, Denies chills and Denies fever(s) Eyes Eyes: Denies blurry vision ENT Ears, Nose, Mouth, and Throat: Denies dizziness, Denies sore throat and Denies throat swelling Cardiovascular Cardiovascular: Denies chest pain and Denies dyspnea Respiratory Respiratory: Denies cough and Denies dyspnea Gastrointestinal Gastrointestinal: Denies abdominal pain, Denies diarrhea and Denies vomiting Genitourinary Genitourinary: Denies hematuria and Denies dysuria Musculoskeletal Musculoskeletal: Denies back pain and Denies numbness Integumentary/Breasts Skin/Breast: Denies lesions and Denies rash Neurologic Neurologic: Denies dizziness, Denies localized weakness and Denies numbness Psychiatric Psychiatric: Reports anxiety, Reports depression and Reports suicidal ideation Allergic/Immunologic Allergic/Immunologic: Denies throat swelling PFSH All Active Problems (Updated 11/01/21 @ 17:25 by Mone Carter DO) Depression (Chronic) COVID-19 (Acute) Posterior tibial tendon tear, traumatic (Acute) Strep pharyngitis (Acute) Laceration of ankle, left (Acute) Arterial hemorrhage (Acute) Medical History ADHD Schizoaffective disorder Social History Smoking/Tobacco Use Status: Current-Occasional Tobacco Type: cigarettes and e-cigarettes Smoking risk assessment performed?: Yes Alcohol Intake: current Alcohol Intake frequency: holidays/special occasions only Alcohol type: beer Substance use type: does not use Current gender identity: male Do you feel safe at home: Yes Do you feel safe in your relationship?: Yes Exam Const General: cooperative, healthy appearing and no acute distress HENMT Head: normal to inspection Face and sinus: normal facial exam Eyes General: appearance normal, both eyes and all related structures Pupils: PERRL EOM: EOM intact bilaterally Neck Neck: normal visual inspection and No submandibular swelling Lymphatic: no lymphadenopathy noted Resp Effort & Inspection: normal respiratory effort and able to speak in complete sentences Auscultation: clear to auscultation bilaterally Cardio Rate: regular rate Rhythm: regular rhythm GI Inspection: normal to inspection Palpation: soft, not firm, not rigid and nontender Auscultation: normal bowel sounds Skin General skin exam: no rashes or lesions noted Neuro General: patient alert, patient awake and patient oriented x3 Cognition: normal cognition Speech: speech normal Motor: muscle tone normal throughout Sensory Exam: no sensory deficits noted Extrem General: normal to inspection, full ROM, capillary refill normal, no calf tenderness bilaterally and no edema Psych Appearance: grossly normal Mental Status: mental status grossly normal Speech and Movement: speech and movement normal Affect: normal affect
[2021-11-01 15:55] LABS: Abs Immature Grans 0.02 10^3/uL (0.0-0.06); Absolute Basophil Count 0.02 10^3/uL (0.0-0.2); Absolute Eosinophil Count 0.02 10^3/uL (0.0-0.7); Absolute Lymphocyte Count 1.71 10^3/uL (1.2-3.4); Absolute Monocyte Count 0.39 10^3/uL (0.1-0.8); Absolute Neutrophil Count 4.95 10^3/uL (1.2-6.7); Basophils % 0.3; Eosinophils % 0.3; HCT 45.7 % (40.0-50.0); HGB 15.7 g/dL (13.5-17.5); Immature Grans % 0.3; Lymphocytes % 24.1; MCH 29.1 pg (27.0-33.0); MCHC 34.4 % (32.0-36.0); MCV 84.8 fL (80-95); MPV 10.3 fL (8.0-11.0); Monocytes % 5.5; Neutrophils % 69.5; Nucleated RBC 0 %; Platelet Count 239 10^3/uL (130-400); RBC 5.39 10^6/uL (4.36-5.78); RDW 12.7 % (11.8-14.1); RDW-SD 39.7 fL; WBC 7.11 10^3/uL (4.4-10.8)
[2021-11-01 16:02] VITALS: BP 127/82; PULSE 79; RESP 16; TEMP 36.8; O2SAT 96
[2021-11-01 16:05] LABS: Source Nasal/Nares
--- NOTE | 2021-11-01 16:06 | CMSP_ITS ---
- If Service Date Differs Date of service: 11/01/21 Time of Service: 16:06 Care Management Safety Plan Status: Interim - Reason for Wait Reason for Wait: Assessment/Screening Chief Complaint: Melvin is a 25 year old male who receives services through the IDDS Program at [facility]. Today he presents in the ED for suicidal ideation. He reportedly was cutting up carrots at work when he felt the urge to stab himself in the abdomen and chest with the knife. He told his support person about the urge and came to [facility] for a psychiatric evaluation. While at the hospital, Melvin eloped from the ED. Police were called and Melvin voluntarily returned to the emergency department. CM will respond to ED to assess patient after patient has been medically cleared and assessed by screener. If screener deems patient meets criteria for psychiatric stabilization CM will facilitate interdepartmental huddle with [facility] screener for safety planning considerations and meet with patient to review [facility] policy and safety plan, establish individual wishes for treatment and maintain patient rights. In the interim; please note safety plan below to guide patient care while awaiting further assessment in the ED. SAFETY PLAN: 1. Will remain on suicide precautions and in paper clothes. 2. Will remain in room under direct supervision of one-on-one staff at all times provided by [employer], JESSICA, [employer] dosier operator. 3. May have paper cups, plates, finger foods as well as a cardboard spoon with which to eat meals. 4. Follow [facility] Management of the Admitted Behavioral Health Patient policy. 5. Personal care: Comfort bath system only at this time. 6. Bathroom privileges: with escort in ED. Available in room without limitation on Med/Surg. 6. No personal belongings at this time; per RN discretion. 7. Visitors limited to [facility] staff. 8. Phone contact limited to legal contact at this time. 9. Activities: Music tablet per RN discretion. Med/Surg: Television available at RN discretion. 10. Due to VOLUNTARY status, if patient wishes to leave [facility], staff will contact [facility] Crisis Screener ([phone]) and On-Call Medical Parasitologist ([phone]) as soon as possible. In the event of elopement, notify [facility] Police ([phone]). If deemed appropriate for inpatient psychiatric care, safety plan will be established with patient, and care team, to adhere to patient goals, identify restrictions based on behavioral status, address nutrition, and determine allowed personal belongings, tools for hygiene and personal care. As well plan will determine level of activity including ambulation, level of supervision, visitors, and determine privileges based on level of acuity, behaviors and level of engagement by patient.
[2021-11-01 16:17] LABS: ALT 17 U/L (16-63); AST 17 U/L (15-37); Albumin 4.8 g/dL (3.4-5.0); Alkaline Phosphatase 101 U/L (46-116); Anion Gap 7.9 mmol/L (3-11); BUN 13 mg/dL (7-18); Bilirubin, Total 0.8 mg/dL (0.2-1.0); CO2 29.1 mmol/L (21.0-32.0); Calcium 9.8 mg/dL (8.5-10.1); Chloride 104 mmol/L (98-107); Glucose 82 mg/dL (74-106); Potassium 3.8 mmol/L (3.5-5.1); Sodium 141 mmol/L (136-145); Total Protein 8.4 g/dL (6.4-8.2)
[2021-11-01 16:18] LABS: *AMPHETAMINES SCREEN URINE Negative (Negative); *BARBITURATES SCREEN URINE Negative (Negative); *BENZODIAZEPINES SCREEN URINE Negative (Negative); Cannabinoids THC Negative (Negative); Cocaine Screen,Urine Negative (Negative); METHADONE URINE SCREEN Negative (Negative); OPIATES URINE SCREEN Negative (Negative)
[2021-11-01 16:20] LABS: Tricyclic Antidepressants Negative (Negative)
[2021-11-01 16:25] LABS: ETHANOL BLOOD < 3.0 mg/dL (<10)
[2021-11-01 16:53] LABS: COVID-19 PCR POSITIVE (Negative)
--- NOTE | 2021-11-02 13:59 | PDOC.MHCN_ITS ---
Date of service: 11/01/21 Time of Service: 16:20 Mental Health Crisis Note Presenting Issue How did you arrive at the ED and why did you come: The client presented to [facility] ED with report of a 'blacking out' / depersonalization episode at place of employment. Client is reported to have taken a knife used for vegetable cutting and informed coworkers and support person that he was going to stab himself. Precipitating Factors Client presents in hospital gown with near grooming. He is accompanied by DS support Antonio Marrero. He is fully alert and oriented to time, person place and situation with no reported memory deficits other than 'losing track of awareness' during incident today. He reports feeling Much better and stable with euthymic affect. Thought process is linear and coherent. Insight and judgment appear fair. Speech is unpressured, normal rate and tone, and client is well spoken. No delusions or psychotic thought process observed and no apparent emergent mental health concerns noted during interaction. He reports being medication compliant. He denies SI/HI/SIB, intent or plan. He reports experiencing a 'small mental health breakdown', which he attributes to lack of sleep and recent change in prescription medication (Seroquel decreased 100mg to 50mg to address morning grogginess impacting work functioning). He reports peeling carrots and losing track of time (5 minutes) and noticed that the knife he was using was held inward towards his body when he regained awareness. 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 He reports this disclosure as a preventative measure states that he has He denies need for in-patient psychiatric or crisis bed referral at this time. He reports feeling safe to discharge with support of DS worker. C-SSRS (Shortform) - No to all. Disposition BEHAVIOR: Cooperative EYE CONTACT: Good MOOD: Much better and stable AFFECT: Euthymic APPETITE: No reported issues SLEEP(trouble falling/staying asleep: No reported issues Plan The client does not meet criteria for in-patient hospitalization and will be discharged. The client's DS worker and IDDS team will be supporting client in finding new living arrangement and to help facilitate potential medication review with psychiatric medication provider through [facility]. The client has been encouraged to utilize available supports and to contact 911 if safety becomes a concern. No additional services recommended at this time.
== END 2021-11-01 17:35 | disposition home or self-care (01) ==
PROVIDERS: Emergency Provider Physician Assistant; PCP Physician Assistant
DX: F32.A Depression, unspecified (principal); U07.1 COVID-19; Z59.00 Homelessness unspecified; Z91.14 Patient's other noncompliance with medication regimen
CPT/HCPCS: 80053; 80307; 87635; 99285; 80320; 85025; 99282

== ENCOUNTER 2021-11-04 21:29 | Emergency (ER) | payer MEDICAID, SELFPAY ==
[2021-11-04 21:58] VITALS: BP 146/86; PULSE 87; RESP 18; TEMP 36.8; O2SAT 98
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
== END 2021-11-04 22:49 | disposition home or self-care (01) ==
PROVIDERS: Emergency Provider Emergency Medicine; PCP Physician Assistant
DX: F32.89 Other specified depressive episodes (principal); R45.851 Suicidal ideations; Z20.822 Contact with and (suspected) exposure to COVID-19
CPT/HCPCS: 80053; 87635; 99285; 80320; 80329; 84443; 85025; 99283

== ENCOUNTER 2021-12-02 02:03 | Emergency (ER) | payer MEDICAID, SELFPAY ==
--- NOTE | 2021-12-02 02:00 | RT.EKG_ITS ---
APPROVED REPORT Exam: Resting ECG Reason for Exam: chest pain Patient Location: E HR:71 bpm ECG Measurements Heart Rate 71 AXIS NM 150 P 40 QRSd 98 QRS 82 QT 413 T 60 QTc 451 Conclusion Sinus rhythm...normal P axis, V-rate 60- 99
[2021-12-02 02:06] VITALS: BP 143/76; PULSE 67; RESP 18; TEMP 36.5; O2SAT 99
--- NOTE | 2021-12-02 02:14 | ED.GENADUL_ITS ---
Discharge Plan Disposition Patient Disposition: AGAINST MEDICAL ADVICE Condition: Stable Discharge Details Clinical Impression: Chest pain Primary Care Provider: Loco Brice ED Provider: Juan Antonio Bishop Home Meds and New Rx's Prescriptions: Continued acetaminophen 500 mg tablet 500 mg PO Q6H PRN PRN (Reason: pain) Qty: 60 RF: 3 ibuprofen 600 mg tablet 600 mg PO TID PRN (Reason: pain) Qty: 90 RF: 3 aripiprazole 5 mg tablet 5 mg PO DAILY RF: 0 quetiapine 50 mg tablet 50 mg PO .QHS RF: 0 Discharge Instructions Additional Instructions: Your blood work and ekg did not show concerning findings, you chose not to stay for repeat blood work to rule out heart attack follow up with your primary care provider as soon as possible if you feel more ill, have worsening pain or difficulty breathing return to the emergency department Medical Decision Making 25 yo male with hx of depression though currently denies feeling depressed or having thoughts of self harm or thoughts of harming others, comes in with ems with chest tightness and feeling his heart is beating rapid. He states he had some stress earlier in the day and was laying in bed awake then started to feel as though his heart was beating fast and had chest tightness, has never had this before. Denies any fevers, chills, abdomen pain, n/v. He arrives appearing anxious on exam. He has a soft nontender abdomen. He states he feel the heart is beating fast now and is in sinus on the monitor with rates in the 60's. Clear lungs, no murmurs, no leg swelling or calf tenderness. Suspect this could be anxiety but will obtain ecg and troponin, heart score is 1. He is wells low and perc negative so doubt PE. No tearing back pain and normal vascular exam so doubt dissection pt feels much less anxious after ativan and chest tightnessresolved. Suspect this was anxiety but will obtain delta troponin and ecg pt is currently caox4 and clinically sober and requesting d/c, doesn't want to stay for the repeat testing. He has capacity to make his own decisions and understands risks of leaving including and permanent disability and is willing to accept these risks. HE is leaving against my medical advise. He understands he can return if he changes his mind and I advised to f/u with his pcp cm Differential Diagnosis Differential Diagnosis: nstemi, anxiety, panic attack, svt Medical Records Medical records reviewed: Yes I reviewed the patient's medical records. Lab Data Lab results reviewed: Yes I reviewed the patient's lab results. ECG Data Attestation: I personally reviewed and interpreted this ECG (s) as follows: Prior ECG tracings: not available for review Interpretation: sinus rhythm, rate of 70, no acute st t wave ischemic findings HPI General Mode of arrival: EMS . Date/Time Provider Initiated Documentation: 12/02/21 02:06 . Limitations to Documentation: no limitations . Information obtained by: patient . History of Present Illness 25 year old M presents to the emergency department with the chief complaint of chest tightness, described as moderate, and is localized to the chest. Patient reports no radiation. Patient started experiencing this hour(s) (1) and it has been constant. No relieving factors improve symptom(s), No exacerbating factors reported . Patient notes denies fever/chills and syncope. Patient did receive the following treatments prior to arrival, none Related Data Home Medications Medication Instructions Recorded Confirmed acetaminophen 500 mg PO Q6H PRN PRN #60 tab 12/05/20 11/04/21 ibuprofen 600 mg PO TID PRN #90 tab 12/05/20 11/04/21 aripiprazole 5 mg PO DAILY 11/01/21 11/04/21 quetiapine 50 mg PO .QHS 11/01/21 11/04/21 Previous Rx's Medication Instructions Recorded acetaminophen 500 mg PO Q6H PRN PRN #60 tab 12/05/20 ibuprofen 600 mg PO TID PRN #90 tab 12/05/20 Allergies Allergy/AdvReac Type Severity Reaction Status Date / Time risperidone [From Risperdal] Allergy Intermediate Psychosis Unverified 11/04/21 22:03 General Stated Complaint: Chest Pain AGUSTINA: 4 Review of Systems All systems reviewed & are unremarkable except as noted in HPI and below Constitutional Constitutional: Denies chills, Denies fever(s) and Denies weakness Cardiovascular Cardiovascular: Denies dyspnea Respiratory Respiratory: Denies cough and Denies dyspnea Gastrointestinal Gastrointestinal: Denies abdominal pain, Denies nausea and Denies vomiting Musculoskeletal Musculoskeletal: Denies joint swelling Neurologic Neurologic: Denies weakness Psychiatric Psychiatric: Denies depression and Denies paranoia PFSH All Active Problems (Updated 12/02/21 @ 02:57 by Juan Antonio Bishop MD) Depression (Chronic) COVID-19 (Acute) Situational depression (Acute) Chest pain (Acute) Posterior tibial tendon tear, traumatic (Acute) Strep pharyngitis (Acute) Laceration of ankle, left (Acute) Arterial hemorrhage (Acute) Medical History ADHD Schizoaffective disorder Social History Smoking/Tobacco Use Status: Current-Occasional Tobacco Type: cigarettes and e- cigarettes Smoking risk assessment performed?: Yes Alcohol Intake: current Alcohol Intake frequency: holidays/special occasions only Alcohol type: beer Substance use type: does not use Current gender identity: male Do you feel safe at home: Yes Do you feel safe in your relationship?: Yes Exam Const General: anxious Orientation: alert HENMT Head: normal to inspection Ears: external ears normal General nose exam: external nose normal Mouth: moist mucous membranes Eyes General: appearance normal, both eyes and all related structures Neck Neck: normal visual inspection Resp Effort & Inspection: normal respiratory effort and able to speak in complete sentences Cardio Rate: regular rate GI Palpation: soft and nontender Skin General skin exam: no rashes or lesions noted Neuro General: patient alert and patient oriented x3 Extrem General: normal to inspection Psych Mental Status: mental status grossly normal Course Vital Signs Vital signs: Vital Signs Temperature 36.5 C 12/02/21 02:06 Pulse 67 12/02/21 02:06 Respiratory Rate 18 12/02/21 02:06 Blood Pressure 143/76 H 12/02/21 02:06 Pulse Oximetry 99 12/02/21 02:06 Temperature 36.5 C 12/02/21 02:06 Temperature Source Temporal Artery Scan 12/02/21 02:06 Pulse 67 12/02/21 02:06 Respiratory Rate 18 12/02/21 02:06 Respiratory Effort 12/02/21 02:09 Respiratory Depth Normal 12/02/21 02:09 Respiratory Pattern Normal 12/02/21 02:09 Blood Pressure 143/76 H 12/02/21 02:06 Blood Pressure Position Supine 12/02/21 02:06 Pulse Oximetry 99 12/02/21 02:06 Oxygen Delivery Method Room Air 12/02/21 02:06 Oxygen Flow Rate 0 12/02/21 02:06 Pain Level 0 12/02/21 02:06
[2021-12-02 02:29] LABS: Abs Immature Grans 0.01 10^3/uL (0.0-0.06); Absolute Basophil Count 0.03 10^3/uL (0.0-0.2); Absolute Eosinophil Count 0.13 10^3/uL (0.0-0.7); Absolute Lymphocyte Count 3.65 10^3/uL (1.2-3.4); Absolute Monocyte Count 0.53 10^3/uL (0.1-0.8); Absolute Neutrophil Count 3.81 10^3/uL (1.2-6.7); Basophils % 0.4; Eosinophils % 1.6; HCT 44.5 % (40.0-50.0); HGB 15.4 g/dL (13.5-17.5); Immature Grans % 0.1; Lymphocytes % 44.7; MCH 28.9 pg (27.0-33.0); MCHC 34.6 % (32.0-36.0); MCV 83.5 fL (80-95); MPV 10.4 fL (8.0-11.0); Monocytes % 6.5; Neutrophils % 46.7; Nucleated RBC 0 %; Platelet Count 219 10^3/uL (130-400); RBC 5.33 10^6/uL (4.36-5.78); RDW 12.7 % (11.8-14.1); RDW-SD 38.3 fL; WBC 8.16 10^3/uL (4.4-10.8)
[2021-12-02] MEDS: LORazepam 2 MG/ML VIAL 1 MG IVP (02:30)
[2021-12-02 02:44] LABS: ALT 18 U/L (16-63); AST 17 U/L (15-37); Albumin 4.5 g/dL (3.4-5.0); Alkaline Phosphatase 92 U/L (46-116); Anion Gap 9.7 mmol/L (3-11); BUN 16 mg/dL (7-18); Bilirubin, Total 0.5 mg/dL (0.2-1.0); CO2 28.3 mmol/L (21.0-32.0); CREATININE 1.3 mg/dL (0.70-1.30); Calcium 9.6 mg/dL (8.5-10.1); Chloride 101 mmol/L (98-107); Glucose 103 mg/dL (74-106); Lipase 62 U/L (73-393); Magnesium 1.7 mg/dL (1.8-2.4); Potassium 3.6 mmol/L (3.5-5.1); Sodium 139 mmol/L (136-145); Total Protein 7.8 g/dL (6.4-8.2); Troponin I < 50 ng/L (<or=60)
== END 2021-12-02 03:18 | disposition left against medical advice (07) ==
LOC: ER 03:20
PROVIDERS: Emergency Provider Emergency Medicine; PCP Physician Assistant
DX: R07.9 Chest pain, unspecified (principal); F41.9 Anxiety disorder, unspecified; R00.0 Tachycardia, unspecified; Z53.29 Procedure and treatment not carried out because of patient's decision for other reasons
CPT/HCPCS: 36415; 80053; 83690; 93005; 96374; 99284; 83735; 84484; 85025; 93010; J2060

== ENCOUNTER 2021-12-18 07:07 | Emergency (ER) | payer MEDICAID, SELFPAY ==
--- NOTE | 2021-12-18 07:00 | RT.EKG_ITS ---
APPROVED REPORT Exam: Resting ECG Reason for Exam: chest pain Patient Location: E HR:102 bpm ECG Measurements Heart Rate 102 AXIS AZ 124 P 0 QRSd 97 QRS 86 QT 357 T 30 QTc 466 Conclusion Sinus tachycardia...rate> 99 ST elev, probable normal early repol pattern...ST elevation, age<55 Physicia: unchanged from prior. I have reviewed and interpreted ECG and agree with software generated interpretation.
[2021-12-18 07:10] VITALS: BP 130/82; PULSE 106; RESP 14; TEMP 36.7; O2SAT 100
--- NOTE | 2021-12-18 07:22 | ED.GENADUL_ITS ---
Discharge Plan Disposition Patient Disposition: HOME Condition: Good Discharge Details Clinical Impression: Encounter for medical assessment, Acute dehydration Primary Care Provider: Loco Brice ED Provider: Jose Flor Home Meds and New Rx's Prescriptions: Continued mirtazapine 30 mg tablet 15 mg PO HS RF: 0 acetaminophen 500 mg tablet 500 mg PO Q6H PRN PRN (Reason: pain) Qty: 60 RF: 3 ibuprofen 600 mg tablet 600 mg PO TID PRN (Reason: pain) Qty: 90 RF: 3 aripiprazole 5 mg tablet 5 mg PO DAILY RF: 0 Discharge Instructions Instructions: Dehydration (ED) Additional Instructions: At this time you have requested to hold off on any blood work or additional testing. I would strongly recommend decreasing caffeine, and increasing daily fluid intake. Excessive caffeine in combination with dehydration can certainly cause an elevated heart rate as well as cramping. Please contact your counselor and follow-up closely with them and discuss what happened today. If you notice any worsening of your symptoms, or any new symptoms such as vomiting, diarrhea, fever, chills, shortness of breath, chest pain, numbness, weakness, or fainting , please return immediately to the emergency department for reevaluation. Please follow up with your primary care provider as soon as possible for reassessment and reevaluation. As always, it was a pleasure participating in your medical care today. Referrals: Loco Brice [Primary Care Provider] - Medical Decision Making This is a 26-year-old male with a past medical history of ADHD, disorder, anxiety, who presents today via EMS for medical evaluation. Patient states that he was running to catch the bus that was going to take him to his counselor appointment. UnFortunately during his running episode he felt that his heart rate went high and he began to have cramps in his legs. He contacted 911, and was brought into the ED for further evaluation. He currently denies any chest pain, palpitations, headache. He denies any history of blood clots or pulmonary embolism. He denies taking any extra medications. He does admit to drinking a notable amount of coffee, and not drinking much water. Patient has no other complaints at this time. No other modifying factors. Physical exam is unremarkable. Wells score is notably low. PE unlikely. EKG shows mild sinus tachycardia, mild repolarization. This is unchanged from his previous EKG. No evidence of Brugada syndrome, Hywyf-Qlsdnrlgs-Ucein, or other significant abnormality. Patient refuses blood work at this time. He states that he feels much better just needed to be calm down. Symptoms inconsistent with dissection, aneurysm, or other acute life-threatening etiology based on exam at this time. I suspect that his cramps are secondary to decreased water intake in conjunction with notable caffeine and running early in the morning. I did recommend taking Tums at home for increased calcium and a multivitamin for other important nutrients. Patient understands this. Patient does not want any further work-up at this time. We did discuss the risks and benefits of this, and after a shared decision making process the patient has refused any further work-up at this time. Patient is of an appropriate age to make decisions. The patient is of sound mind, appears clinically sober, and has capacity to make decisions by my clinical exam. Respecting the patient's wishes we will hold off on imaging. Patient is notably good spirits otherwise. I did recommend that he contact his counselor and follow-up shortly with him. Initial symptoms likely were also worsened with the patient's history of anxiety. Patient feels well and would like to go home. I have extensively reviewed the treatment plan and discharge instructions with the patient. I have addressed all patient concerns at this time. The patient was made aware of what symptoms to monitor for that would warrant a return to the emergency department. Discussed the plan with the patient, they demonstrate verbal understanding and agreement with our assessment and plan at this time. The documentation in this chart was dictated using [employer] dictation software. Please excuse any dictation errors. HPI General Date/Time Provider Initiated Documentation: 12/18/21 07:12 . HPI Narrative: This is a 26-year-old male with a past medical history of ADHD, disorder, anxiety, who presents today via EMS for medical evaluation. Patient states that he was running to catch the bus that was going to take him to his counselor appointment. UnFortunately during his running episode he felt that his heart rate went high and he began to have cramps in his legs. He contacted 911, and was brought into the ED for further evaluation. He currently denies any chest pain, palpitations, headache. He denies any history of blood clots or pulmonary embolism. He denies taking any extra medications. He does admit to drinking a notable amount of coffee, and not drinking much water. Patient has no other complaints at this time. No other modifying factors. Related Data Home Medications Medication Instructions Recorded Confirmed acetaminophen 500 mg PO Q6H PRN PRN #60 tab 12/05/20 12/18/21 ibuprofen 600 mg PO TID PRN #90 tab 12/05/20 12/18/21 aripiprazole 5 mg PO DAILY 11/01/21 12/18/21 mirtazapine 15 mg PO HS 12/18/21 12/18/21 Previous Rx's Medication Instructions Recorded acetaminophen 500 mg PO Q6H PRN PRN #60 tab 12/05/20 ibuprofen 600 mg PO TID PRN #90 tab 12/05/20 Allergies Allergy/AdvReac Type Severity Reaction Status Date / Time risperidone [From Risperdal] Allergy Intermediate Psychosis Unverified 12/18/21 07:21 General Stated Complaint: Chest Pain AGUSTINA: 2 Review of Systems All systems reviewed & are unremarkable except as noted in HPI and below PFSH All Active Problems Depression (Chronic) COVID-19 (Acute) Chest pain (Acute) Encounter for medical assessment (Acute) Acute dehydration (Acute) Posterior tibial tendon tear, traumatic (Acute) Strep pharyngitis (Acute) Laceration of ankle, left (Acute) Arterial hemorrhage (Acute) Medical History ADHD Schizoaffective disorder Social History Smoking/Tobacco Use Status: Current-Occasional Tobacco Type: cigarettes and e- cigarettes Smoking risk assessment performed?: Yes Alcohol Intake: current Alcohol Intake frequency: holidays/special occasions only Alcohol type: beer Substance use type: does not use Current gender identity: male Do you feel safe at home: Yes Do you feel safe in your relationship?: Yes Exam Narrative Exam Narrative: 1.Const: Well-nourished, Well-developed, appearing stated age 2.Eyes: PERRL, no conjunctival injection, and symmetrical lids. 3.ENT: Atraumatic external nose and ears. Moist MM. Neck: Symmetric, trachea midline, No thyromegaly. 4.CVS: +S1/S2, No murmurs or gallops. Peripheral pulses 2+ and equal in all extremities. Brisk capillary refill in all extremities. 5.RESP: Unlabored respiratory effort. Clear to auscultation bilaterally. No wheezes rales or rhonchi 6.GI: Soft, Nontender/Nondistended, No hepatosplenomegaly. No guarding or rebound. 7.MSK: Normocephalic/Atraumatic, Extremities w/o deformity or ttp No cyanosis or clubbing, Normal movement of all extremities 8.Skin: Warm, Dry. No rashes or lesions. 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 Sensation grossly intact, no focal neurologic deficits. 10.Psych: (AAO) x3. Appropriate mood and affect Course Vital Signs Vital signs: Vital Signs Temperature 36.7 C 12/18/21 07:10 Pulse 106 H 12/18/21 07:10 Respiratory Rate 14 12/18/21 07:10 Blood Pressure 130/82 12/18/21 07:10 Pulse Oximetry 100 12/18/21 07:10 Temperature 36.7 C 12/18/21 07:10 Temperature Source Temporal Artery Scan 12/18/21 07:10 Pulse 106 H 12/18/21 07:10 Respiratory Rate 14 12/18/21 07:10 Blood Pressure 130/82 12/18/21 07:10 Blood Pressure Position Sitting 12/18/21 07:10 Pulse Oximetry 100 12/18/21 07:10 Oxygen Delivery Method Room Air 12/18/21 07:10 Oxygen Flow Rate 0 12/18/21 07:10 Pain Level 10 12/18/21 07:10
--- NOTE | 2021-12-18 07:32 | NUR.NOTE ---
Pt. refused IV and blood work. Dr. Flor met with patient and discharged pt.Nursing Note:
== END 2021-12-18 07:35 | disposition home or self-care (01) ==
LOC: ER 07:44
PROVIDERS: Emergency Provider Student in an Organized Health Care Education/Training Program; PCP Physician Assistant
DX: E86.0 Dehydration (principal); R07.9 Chest pain, unspecified
CPT/HCPCS: 93005; 99283; 93010

== ENCOUNTER 2022-01-06 16:09 | Outpatient (REF) | payer MEDICAID, SELFPAY ==
[2022-01-07 11:51] LABS: HSV 1 DNA Result Negative (Negative); HSV 2 DNA Result Negative (Negative); Varicella Zoster DNA Result Negative ((See Note))
== END 2022-01-06 16:10 | disposition home or self-care (01) ==
LOC: NCHCN 16:09
PROVIDERS: PCP Physician Assistant; Visit Provider Physician Assistant
DX: N48.89 Other specified disorders of penis (principal)
CPT/HCPCS: 87529; 87798

== ENCOUNTER 2022-01-27 02:39 | Emergency (ER) | payer MEDICAID, SELFPAY ==
--- NOTE | 2022-01-27 04:29 | W.ED.GENAD ---
Discharge Plan Disposition Patient Disposition: HOME Condition: Stable Discharge Details Clinical Impression: At high risk for elopement, Encounter for medical assessment Primary Care Provider: Loco Brice ED Provider: Jose Flor Home Meds and New Rx's Prescriptions: No Action mirtazapine 30 mg tablet 15 mg PO HS 0RF Label Comments: TAKE 1 TABLET BY MOUTH AT BEDTIME acetaminophen 500 mg tablet 500 mg PO Q6H PRN PRN (Reason: pain) Qty: 60 3RF ibuprofen 600 mg tablet 600 mg PO TID PRN (Reason: pain) Qty: 90 3RF aripiprazole 5 mg tablet 5 mg PO DAILY 0RF Medical Decision Making 26-year-old male with a past medical history of depression, bipolar disorder, schizoaffective disorder, ADHD, presents today for evaluation. Patient states that over the last week he has had increased highs and lows. He has not been on his medication for the last week secondary to it causing an increase in his heart rate. This evening he states that he felt like he was having extra intensity compared to normal thought that perhaps he should get checked out. He was wrestling a friend which did cause him to incur a bruise on his right hip, and did have some aches and pains from this. Currently he denies any homicidal or suicidal ideations. He states there are moments where he just gets really ramped up, but he states he does not want to currently hurt or harm anyone. He denies any other complaints time. He does state very specifically that he does not want to be evaluated by mental health. He denies any IV or illicit drug use. No other complaints this time. Physical exam is relatively unremarkable. Small contusion over the posterior right hip. Patient ambulates well with no other tenderness. No indication for emergent imaging currently. No evidence of fracture based on exam and history. Patient states he does not want any imaging. Initially I did offer laboratory work-up including thyroid assessment to evaluate for the highs and lows that he is feeling out of concern for potential metabolic component. Patient initially accepted this. He made it unequivocally clear that he did not want to be seen by mental health advocate. As he currently denies any homicidal or suicidal ideation I see no indication at this time for an emergent eval or an involuntary admission. I discussed the patient that we are happy to provide additional resources if he so wishes. He understands this. I also informed him that I would be letting her mental health advocates know that he did not talk to them at this time. Patient understands. Unfortunately as soon as I left the room the patient then subsequently got up and left the emergency department moments later. As he had no homicidal or suicidal ideations, and did not at this clinical point show signs of being a threat to himself or others, and additionally he was able to demonstrate clear thinking on my exam and assessment, I see no indication to have police alone for him and bring him back. However I did contact mental health discussed the case with them informing them of my assessment, patient symptoms, and the importance of close follow-up. Patient otherwise eloped before complete work-up/assessment was complete. HPI General Date/Time Provider Initiated Documentation: 01/27/22 02:41. HPI Narrative: 26-year-old male with a past medical history of depression, bipolar disorder, schizoaffective disorder, ADHD, presents today for evaluation. Patient states that over the last week he has had increased highs and lows. He has not been on his medication for the last week secondary to it causing an increase in his heart rate. This evening he states that he felt like he was having extra intensity compared to normal thought that perhaps he should get checked out. He was wrestling a friend which did cause him to incur a bruise on his right hip, and did have some aches and pains from this. Currently he denies any homicidal or suicidal ideations. He states there are moments where he just gets really ramped up, but he states he does not want to currently hurt or harm anyone. He denies any other complaints time. He does state very specifically that he does not want to be evaluated by mental health. He denies any IV or illicit drug use. No other complaints this time. Related Data Home Medications Medication Instructions Recorded Confirmed acetaminophen 500 mg tablet 500 mg PO Q6H PRN PRN #60 tab 12/05/20 12/18/21 ibuprofen 600 mg tablet 600 mg PO TID PRN #90 tab 12/05/20 12/18/21 aripiprazole 5 mg tablet 5 mg PO DAILY 11/01/21 12/18/21 mirtazapine 30 mg tablet 15 mg PO HS 12/18/21 12/18/21 Previous Rx's Medication Instructions Recorded acetaminophen 500 mg tablet 500 mg PO Q6H PRN PRN #60 tab 12/05/20 ibuprofen 600 mg tablet 600 mg PO TID PRN #90 tab 12/05/20 Allergies Allergy/AdvReac Type Severity Reaction Status Date / Time risperidone [From Risperdal] Allergy Intermediate Psychosis Unverified 12/18/21 07:21 General AGUSTINA: 2 Review of Systems All systems reviewed & are unremarkable except as noted in HPI and below PFSH All Active Problems (Updated 01/27/22 @ 04:48 by Jose Flor DO) Depression (Chronic) COVID-19 (Acute) At high risk for elopement (Acute) Encounter for medical assessment (Acute) Posterior tibial tendon tear, traumatic (Acute) Strep pharyngitis (Acute) Laceration of ankle, left (Acute) Arterial hemorrhage (Acute) Medical History ADHD Schizoaffective disorder Social History Smoking/Tobacco Use Status: Current-Occasional Tobacco Type: cigarettes and e-cigarettes Smoking risk assessment performed?: Yes Alcohol Intake: current Alcohol Intake frequency: holidays/special occasions only Alcohol type: beer Substance use type: does not use Current gender identity: male Do you feel safe at home: Yes Do you feel safe in your relationship?: Yes Exam Narrative Exam Narrative: 1.Const: Well-nourished, Well-developed, appearing stated age 2.Eyes: PERRL, no conjunctival injection, and symmetrical lids. 3.ENT: Atraumatic external nose and ears. Moist MM. Neck: Symmetric, trachea midline, No thyromegaly. 4.CVS: +S1/S2, No murmurs or gallops. Peripheral pulses 2+ and equal in all extremities. Brisk capillary refill in all extremities. 5.RESP: Unlabored respiratory effort. Clear to auscultation bilaterally. No wheezes rales or rhonchi 6.GI: Soft, Nontender/Nondistended, No hepatosplenomegaly. No guarding or rebound. 7.MSK: Normocephalic/Atraumatic, Extremities w/o deformity. No cyanosis or clubbing, Normal movement of all extremities, mild tenderness over the right posterior superior iliac spine, mild contusion in that area. No tenderness over the greater trochanter. No other evidence of trauma. No midline cervical thoracic or lumbar spine tenderness. 8.Skin: Warm, Dry. No rashes or lesions. 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 Sensation grossly intact, no focal neurologic deficits. 10.Psych: (AAO) x3. Appropriate mood and affect, no pressured speech. Affect is unremarkable.
== END 2022-01-27 03:22 | disposition home or self-care (01) ==
PROVIDERS: Emergency Provider Student in an Organized Health Care Education/Training Program; PCP Physician Assistant
DX: F31.9 Bipolar disorder, unspecified (principal); Z91.14 Patient's other noncompliance with medication regimen; S70.01XA Contusion of right hip, initial encounter; X58.XXXA Exposure to other specified factors, initial encounter; Z53.29 Procedure and treatment not carried out because of patient's decision for other reasons
CPT/HCPCS: 80053; 99281; 80329; 83735; 84443; 85025; 99282

== ENCOUNTER 2022-02-12 15:22 | Outpatient (REF) | payer MEDICAID, SELFPAY ==
[2022-02-14 15:07] LABS: Chlamydia Result Negative (Negative)
[2022-02-14 17:06] LABS: GC Result Positive (Negative)
== END 2022-02-12 15:23 | disposition home or self-care (01) ==
LOC: NCHCN 15:22
PROVIDERS: PCP Physician Assistant; Visit Provider Physician Assistant
DX: Z11.3 Encounter for screening for infections with a predominantly sexual mode of transmission (principal); R30.0 Dysuria
CPT/HCPCS: 87491; 87591

== ENCOUNTER 2022-02-20 17:43 | Emergency (ER) | payer MEDICAID, SELFPAY ==
[2022-02-20 17:56] VITALS: BP 137/99; PULSE 71; RESP 14; TEMP 36.2; O2SAT 100
== END 2022-02-20 18:30 ==
PROVIDERS: Emergency Provider Physician Assistant; PCP Physician Assistant
DX: Z53.29 Procedure and treatment not carried out because of patient's decision for other reasons (principal)

== ENCOUNTER 2022-02-20 21:03 | Emergency (ER) | payer MEDICAID, SELFPAY ==
[2022-02-20 21:14] VITALS: BP 136/85; PULSE 90; RESP 18; TEMP 36.7; O2SAT 99
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
== END 2022-02-20 22:36 | disposition other institution (70) ==
PROVIDERS: Emergency Provider Emergency Medicine; PCP Physician Assistant
DX: F32.9 Major depressive disorder, single episode, unspecified (principal); Z53.29 Procedure and treatment not carried out because of patient's decision for other reasons; Z91.14 Patient's other noncompliance with medication regimen
CPT/HCPCS: 80053; 99285; 80320; 80329; 84443; 85025; 99283

== ENCOUNTER 2022-10-03 14:57 | Outpatient (REF) | payer MEDICAID, SELFPAY ==
[2022-10-05 14:50] LABS: Chlamydia Result Negative (Negative); GC Result Negative (Negative)
== END 2022-10-03 14:58 | disposition home or self-care (01) ==
LOC: LBN 14:57
PROVIDERS: PCP Physician Assistant; Visit Provider Physician Assistant Medical
DX: Z20.2 Contact with and (suspected) exposure to infections with a predominantly sexual mode of transmission (principal)
CPT/HCPCS: 87491; 87591

== ENCOUNTER 2022-10-10 13:16 | Emergency (ER) | payer MEDICAID, SELFPAY ==
[2022-10-10 13:19] VITALS: BP 120/79; PULSE 87; RESP 16; TEMP 36.9; O2SAT 98
--- NOTE | 2022-10-10 13:45 | ED.GENADUL_ITS ---
Discharge Plan Disposition Patient Disposition: Home Condition: Stable Discharge Details Clinical Impression: Abdominal pain, Nausea & vomiting Primary Care Provider: Loco Brice ED Provider: Gerard Jordan Home Meds and New Rx's Prescriptions: Continued mirtazapine 30 mg tablet 15 mg PO HS Label Comments: TAKE 1 TABLET BY MOUTH AT BEDTIME acetaminophen 500 mg tablet 500 mg PO Q6H PRN PRN (Reason: pain) Qty: 60 3RF ibuprofen 600 mg tablet 600 mg PO TID PRN (Reason: pain) Qty: 90 3RF aripiprazole 5 mg tablet 5 mg PO DAILY Discharge Instructions Instructions: Abdominal Pain (ED), Acute Nausea and Vomiting (ED) Additional Instructions: At this time your vital signs are unremarkable. Your abdominal examination is not consistent with a surgical abdomen. You do understand that your work-up here is limited as you have declined any IV access, blood draw or laboratory values. Please watch for new or worsening symptoms and return to the ER for any concerns. Lastly, please contact your primary care on Thursday to discuss your ER visit need for outpatient reevaluation. Medical Decision Making This is a 26-year-old gentleman who vomited this morning after taking his medications on an empty stomach, he reports vomiting bile and then a dark substance. Overall he feels well now but simply wants to be sure that there is nothing more serious wrong. He has no other acute medical concerns or complaints. He declines IV access or laboratory values. He states that all he wants is a verbal opinion and if things change or worsen he will return to the ER. Evaluation in the ER is not consistent with a surgical abdomen. He is hemodynamically stable. Discussed my findings with patient. He understands work-up is limited without laboratory values but is requesting discharge. Standard discharge and return precautions were provided. Patient understands, is agreeable to this plan, and has no additional questions or concerns upon discharge. This documentation was generated using [employer]atar Realityation system, please disregard any oddities of phrase or misspellings. Medical Records Medical records reviewed: Yes I reviewed the patient's medical records. Sign Out No HPI General Mode of arrival: ambulatory . Date/Time Provider Initiated Documentation: 10/10/22 13:38 . Limitations to Documentation: no limitations . Information obtained by: patient . HPI Narrative: This is a 26-year-old gentleman who denies significant past medical history, reports that he took his medication this morning on an empty stomach and about a half an hour later ended up vomiting some bile and subsequently vomited a dark substance. He denies any bright red blood. He reports mild diffuse abdominal pain which is improving. He denies any nausea, additional vomiting, recent illness or trauma, fever, chest pain, diarrhea, constipation, dysuria or hematuria. No back pain. Denies bad food exposure or sick contacts Related Data Home Medications Medication Instructions Recorded Confirmed acetaminophen 500 mg tablet 500 mg PO Q6H PRN PRN pain #60 tabs 12/05/20 10/10/22 ibuprofen 600 mg tablet 600 mg PO TID PRN pain #90 tabs 12/05/20 10/10/22 aripiprazole 5 mg tablet 5 mg PO DAILY 11/01/21 12/18/21 mirtazapine 30 mg tablet 15 mg PO HS 12/18/21 12/18/21 Previous Rx's Medication Instructions Recorded acetaminophen 500 mg tablet 500 mg PO Q6H PRN PRN pain #60 tabs 12/05/20 ibuprofen 600 mg tablet 600 mg PO TID PRN pain #90 tabs 12/05/20 Allergies Allergy/AdvReac Type Severity Reaction Status Date / Time risperidone [From Risperdal] Allergy Intermediate Psychosis Unverified 10/10/22 13:42 General Stated Complaint: GI Bleed AGUSTINA: 3 Review of Systems Constitutional Constitutional: Denies fever(s) Cardiovascular Cardiovascular: Denies chest pain and Denies dyspnea Respiratory Respiratory: Denies cough and Denies dyspnea Gastrointestinal Gastrointestinal: Reports abdominal pain, Denies melena, Denies hematochezia, Denies constipation, Denies diarrhea, Reports nausea and Reports vomiting Genitourinary Genitourinary: Denies dysuria Musculoskeletal Musculoskeletal: Denies back pain Integumentary/Breasts Skin/Breast: Denies rash PFSH All Active Problems (Updated 10/10/22 @ 13:52 by MICHAEL Metzger) Depression (Chronic) COVID-19 (Acute) Abdominal pain (Acute) Nausea & vomiting (Acute) Posterior tibial tendon tear, traumatic (Acute) Strep pharyngitis (Acute) Laceration of ankle, left (Acute) Arterial hemorrhage (Acute) Medical History ADHD Schizoaffective disorder Social History Smoking/Tobacco Use Status: Current-Occasional Tobacco Type: cigarettes and e-cigarettes Smoking risk assessment performed?: Yes Alcohol Intake: current Alcohol Intake frequency: holidays/special occasions only Alcohol type: beer Drug use: Never Substance use type: does not use Current gender identity: male Do you feel safe at home: No Do you feel safe in your relationship?: No Exam Const General: cooperative, healthy appearing, comfortable and no acute distress Orientation: alert and awake [facility] Head: normal to inspection, normocephalic and atraumatic Face and sinus: normal facial exam Mouth: oral mucosae normal and moist mucous membranes Throat: posterior oropharynx normal Eyes General: appearance normal, both eyes and all related structures Conjunctivae: conjunctivae normal Neck Neck: normal visual inspection, full ROM, no meningeal signs, trachea midline and supple Resp Effort & Inspection: normal respiratory effort and able to speak in complete sentences Auscultation: clear to auscultation bilaterally Cardio Rate: regular rate Rhythm: regular rhythm GI Inspection: normal to inspection Palpation: soft, not firm, no guarding and tender in the epigastrum (Mild); not at McBurney's point, Flores's sign negative and with no rebound tenderness Auscultation: normal bowel sounds Back/Spine/Pelvis Back: no CVA tenderness and No back tenderness Skin General skin exam: no rashes or lesions noted Neuro General: patient alert, patient awake, moves all extremities and no focal motor deficits Cognition: normal cognition Speech: speech normal Gait: normal gait Motor: muscle tone normal throughout Sensory Exam: no sensory deficits noted Psych Appearance: grossly normal Mental Status: mental status grossly normal Course Vital Signs Vital signs: Vital Signs Temperature 36.9 C 10/10/22 13:19 Pulse 87 10/10/22 13:19 Respiratory Rate 16 10/10/22 13:19 Blood Pressure 120/79 10/10/22 13:19 Pulse Oximetry 98 10/10/22 13:19 Temperature 36.9 C 10/10/22 13:19 Temperature Source Skin 10/10/22 13:19 Pulse 87 10/10/22 13:19 Respiratory Rate 16 10/10/22 13:19 Respiratory Effort Non-Labored 10/10/22 13:40 Blood Pressure 120/79 10/10/22 13:19 Blood Pressure Position Sitting 10/10/22 13:19 Pulse Oximetry 98 10/10/22 13:19 Oxygen Delivery Method Room Air 10/10/22 13:19 Oxygen Flow Rate 0 10/10/22 13:19 Pain Level 2 10/10/22 13:19
== END 2022-10-10 14:25 | disposition home or self-care (01) ==
PROVIDERS: Emergency Provider Physician Assistant; PCP Physician Assistant
DX: R10.9 Unspecified abdominal pain (principal); R11.2 Nausea with vomiting, unspecified; Z53.29 Procedure and treatment not carried out because of patient's decision for other reasons
CPT/HCPCS: 99281; 99282

== ENCOUNTER 2023-01-06 20:58 | Emergency (ER) | payer MEDICAID, SELFPAY ==
[2023-01-06 21:00] VITALS: BP 151/88; PULSE 109; RESP 24; TEMP 36.3; O2SAT 97
--- NOTE | 2023-01-06 21:17 | ED.GENADUL_ITS ---
Discharge Plan Disposition Patient Disposition: Home Condition: Improving Discharge Details Clinical Impression: Spasm of muscle of lower back Primary Care Provider: Loco Brice ED Provider: David Amin Home Meds and New Rx's Prescriptions: Continued mirtazapine 30 mg tablet 15 mg PO HS Patient Comments: TAKE 1 TABLET BY MOUTH AT BEDTIME acetaminophen 500 mg tablet 500 mg PO Q6H PRN PRN (Reason: pain) Qty: 60 3RF ibuprofen 600 mg tablet 600 mg PO TID PRN (Reason: pain) Qty: 90 3RF aripiprazole 5 mg tablet 5 mg PO DAILY Discharge Instructions Instructions: Muscle Spasm (ED) Additional Instructions: Home to rest this evening. Small, frequent sips of fluids to maintain hydration. May take the methocarbamol at bedtime if needed. Ibuprofen as needed for discomfort tomorrow. Apply ice 20 to 30 minutes at a time. Return for any acute concern Medical Decision Making 27-year-old male presents with back pain. He was lifting heavy boxes approxim ately 80 to 90 pounds earlier in the day, and when rolling out of bed tonight felt pain and spasm in his low back. There is no motor weakness or bowel/bladder dysfunction. On exam he has tenderness in the lumbar spine with spasm present and mild left SI joint tenderness. No sign of motor or sensory deficit. Patient given Lidoderm patch and we will have him trial methocarbamol at home. He understands use of ice, gentle massage and stretching. He will return for any acute concern. HPI General Mode of arrival: ambulatory . Date/Time Provider Initiated Documentation: 01/06/23 21:08 . Limitations to Documentation: no limitations . Information obtained by: patient . History of Present Illness 27 year old M presents to the emergency department with the chief complaint of Low back pain and spasm, described as moderate, Quality is described as dull, and is localized to the back. Patient reports no radiation. Patient started experiencing this hour(s) and it has been intermittent. No relieving factors improve symptom(s), Movement worsens symptoms . Patient notes denies seizure and weakness. Patient did receive the following treatments prior to arrival, none Related Data Home Medications Medication Instructions Recorded Confirmed acetaminophen 500 mg tablet 500 mg PO Q6H PRN PRN pain #60 tabs 12/05/20 10/10/22 ibuprofen 600 mg tablet 600 mg PO TID PRN pain #90 tabs 12/05/20 10/10/22 aripiprazole 5 mg tablet 5 mg PO DAILY 11/01/21 12/18/21 mirtazapine 30 mg tablet 15 mg PO HS 12/18/21 12/18/21 Previous Rx's Medication Instructions Recorded acetaminophen 500 mg tablet 500 mg PO Q6H PRN PRN pain #60 tabs 12/05/20 ibuprofen 600 mg tablet 600 mg PO TID PRN pain #90 tabs 12/05/20 Allergies Allergy/AdvReac Type Severity Reaction Status Date / Time risperidone [From Risperdal] Allergy Intermediate Psychosis Unverified 10/10/22 13:42 General Stated Complaint: Nk/Back Pain AGUSTINA: 4 Review of Systems Narrative: 6 systems reviewed and otherwise negative. No motor weakness. No numbness or tingling, no loss of bowel or bladder function. PFSH All Active Problems (Updated 01/06/23 @ 21:20 by David Amin MD) Depression (Chronic) COVID-19 (Acute) Spasm of muscle of lower back (Acute) Posterior tibial tendon tear, traumatic (Acute) Strep pharyngitis (Acute) Laceration of ankle, left (Acute) Arterial hemorrhage (Acute) Medical History ADHD Schizoaffective disorder Social History Smoking/Tobacco Use Status: Current-Occasional Tobacco Type: cigarettes and e- cigarettes Smoking risk assessment performed?: Yes Alcohol Intake: current Alcohol Intake frequency: holidays/special occasions only Alcohol type: beer Drug use: Never Substance use type: does not use Current gender identity: male Do you feel safe at home: No Do you feel safe in your relationship?: No Exam Narrative Exam Narrative: GEN: awake, alert, oriented 3. Pleasant, well groomed, interactive. HEAD: Normocephalic, atraumatic ENT: Mucous membranes moist, oropharynx unremarkable, External ear exam unremarkable EYES: PERRL, EOMI NECK: Full ROM, no SHARRI, no menigismus CHEST/RESP: Nontender, clear to auscultation bilateral, no wheeze/rhonchi/rales CARDIOVASCULAR: RRR, no murmur, rub ellie. 2+ Rad pulse bilateral, 2+ patellar reflex bilaterally Back: There is spasm present in the lower lumbar paraspinous left greater than right and tenderness over left SI joint. Normal motor and sensory function throughout. EXT: Full ROM, no edema, no rash Neuro: Grossly normal neurologic exam, conversant, interactive. Psych: Speech fluent, thoughts congruent, affect normal Course Vital Signs Vital signs: Vital Signs Temperature 36.3 C L 01/06/23 21:00 Pulse 109 H 01/06/23 21:00 Respiratory Rate 24 01/06/23 21:00 Blood Pressure 151/88 H 01/06/23 21:00 Pulse Oximetry 97 01/06/23 21:00 Temperature 36.3 C L 01/06/23 21:00 Temperature Source Temporal Artery Scan 01/06/23 21:00 Pulse 109 H 01/06/23 21:00 Respiratory Rate 24 01/06/23 21:00 Respiratory Effort Normal 01/06/23 21:04 Blood Pressure 151/88 H 01/06/23 21:00 Blood Pressure Position Standing 01/06/23 21:00 Pulse Oximetry 97 01/06/23 21:00 Oxygen Delivery Method Room Air 01/06/23 21:00 Oxygen Flow Rate 0 01/06/23 21:00 Pain Level 5 01/06/23 21:00
[2023-01-06] MEDS: Lidocaine 5% Patch 1 PATCH TP (21:24)
[2023-01-06] MEDS: Methocarbamol 500 MG TAB 1000 MG PO (21:31)
== END 2023-01-06 21:37 | disposition home or self-care (01) ==
LOC: ER 21:43
PROVIDERS: Emergency Provider Emergency Medicine; PCP Physician Assistant
DX: M62.830 Muscle spasm of back (principal)
CPT/HCPCS: 99283; 99284

== ENCOUNTER 2023-04-13 16:31 | Emergency (ER) | payer MEDICAID, SELFPAY ==
[2023-04-13 16:43] VITALS: BP 155/92; PULSE 120; RESP 18; TEMP 37.1; O2SAT 96
--- NOTE | 2023-04-13 17:02 | NUR.NOTE ---
Per Access pt has left the facility. pt has not been seen by provider at this time
--- NOTE | 2023-04-13 17:02 | NUR.NOTE ---
Nursing Note: this RN went to see patient in room 9 after triage. Pt not in room. According to access they saw pt walk out the front doors of the ED. Pt left without being seen.
== END 2023-04-13 17:03 | disposition left against medical advice (07) ==
LOC: ER 16:36
PROVIDERS: PCP Physician Assistant
DX: Z53.21 Procedure and treatment not carried out due to patient leaving prior to being seen by health care provider (principal)

== ENCOUNTER 2023-04-23 02:25 | Outpatient (CLI) | payer MEDICAID, SELFPAY ==
--- NOTE | 2023-04-23 14:40 | DI.MRI_ITS ---
Exam(s) MR BRAIN WO EXAM: MR BRAIN WO CLINICAL HISTORY: worsening migraines, pt reported seizure,r51.9,r68.89 TECHNIQUE: Multiplanar multisequence MRI of the brain was performed. COMPARISON: CT HEAD WITHOUT CONTRAST from 08/10/[address] HEAD CERVICAL SPINE WO from 09/26/2020 FINDINGS: VENTRICLES AND EXTRA AXIAL SPACES: Normal in size and morphology for the patient's age. MIDLINE SHIFT: None. CEREBRAL PARENCHYMA: No focus of restricted diffusion to suggest acute infarct. No space-occupying le jenny identified. HEMORRHAGE: None. BRAINSTEM/CEREBELLUM: Normal. CALVARIUM: Normal. VISUALIZED PARANASAL SINUSES/MASTOIDS:Clear. [place]: Normal flow void. PITUITARY GLAND: Unremarkable. OTHER FINDINGS: None. IMPRESSION: Unremarkable MRI of the brain. DATA REPOSITORY:
== END 2023-04-23 02:45 ==
LOC: DI 02:25
PROVIDERS: PCP Physician Assistant; Visit Provider Nurse Practitioner Adult Health
DX: R51.9 Headache, unspecified (principal); R68.89 Other general symptoms and signs
CPT/HCPCS: 70551

== ENCOUNTER 2023-07-10 15:01 | Emergency (ER) | payer MEDICAID, SELFPAY ==
[2023-07-10 15:11] VITALS: BP 139/86; PULSE 111; RESP 12; TEMP 37; O2SAT 97
--- NOTE | 2023-07-10 15:27 | ED.GENADUL_ITS ---
Discharge Plan Disposition Patient Disposition: Eloped Condition: Fair Discharge Details Clinical Impression: Hallucinations Primary Care Provider: Loco Brice ED Provider: Juan Antonio Bishop Home Meds and New Rx's Prescriptions: No Action aripiprazole [Abilify] 20 mg tablet 20 mg PO DAILY mirtazapine 30 mg tablet 30 mg PO QHS valacyclovir [Valtrex] 1 gram tablet 1,000 mg PO DAILY riboflavin (vitamin B2) 100 mg tablet 200 mg PO BID Qty: 360 3RF magnesium oxide 500 mg capsule 500 mg PO DAILY Qty: 90 3RF Patient Comments: not taking ibuprofen 600 mg tablet 600 mg PO TID PRN (Reason: pain) Qty: 90 3RF Medical Decision Making 27 yo male with self reported history of oneyda, comes in with one of his outpatient [facility] workers with concerns for auditory and visual hallucinations since stopping his antipsychotics he says yesterday. HE denies si/hi. Patient refuses to answer most questions, does answer review of system questions. HE has no fevers, chills, chest pain or other concerning medical complaints. HE is ambulatory, caox4 with clear speech, states he's seeing corpses, won't disclose what auditory hallucinations he has. HE is refusing to have any labs done and feel it is unlikely that he has an underlying medical process. Will have mental health evaluate. pt eloped prior to [facility] eval, [facility] notified and will attempt contact, unclear if a warrant will be issued to have him return involuntarily Differential Diagnosis Differential Diagnosis: manic, schizophrenia, schizoaffective HPI General Mode of arrival: ambulatory . Date/Time Provider Initiated Documentation: 07/10/23 15:08 . Limitations to Documentation: no limitations . Information obtained by: patient . History of Present Illness 27 year old M presents to the emergency department with the chief complaint of seeing and hearing things, Patient started experiencing this day(s) (1) and it has been constant. No relieving factors improve symptom(s), No exacerbating factors reported . Patient notes denies chest pain, fever/chills and shortness of breath. Patient did receive the following treatments prior to arrival, none Related Data Home Medications Medication Instructions Recorded Confirmed ibuprofen 600 mg tablet 600 mg PO TID PRN pain #90 tabs 12/05/20 05/12/23 aripiprazole 20 mg tablet (Abilify) 20 mg PO DAILY 01/28/23 05/12/23 mirtazapine 30 mg tablet 30 mg PO QHS 01/28/23 05/12/23 valacyclovir 1 gram tablet 1,000 mg PO DAILY 01/28/23 05/12/23 (Valtrex) magnesium oxide 500 mg capsule 500 mg PO DAILY #90 caps 02/11/23 05/12/23 riboflavin (vitamin B2) 100 mg 200 mg PO BID #360 tabs 04/01/23 05/12/23 tablet Previous Rx's Medication Instructions Recorded ibuprofen 600 mg tablet 600 mg PO TID PRN pain #90 tabs 12/05/20 magnesium oxide 500 mg capsule 500 mg PO DAILY #90 caps 02/11/23 riboflavin (vitamin B2) 100 mg 200 mg PO BID #360 tabs 04/01/23 tablet Allergies Allergy/AdvReac Type Severity Reaction Status Date / Time risperidone [From Risperdal] Allergy Intermediate Psychosis Unverified 05/12/23 14:08 General Stated Complaint: PsychEval AGUSTINA: 3 Review of Systems All systems reviewed & are unremarkable except as noted in HPI and below Constitutional Constitutional: Denies chills, Denies fever(s) and Denies weakness Cardiovascular Cardiovascular: Denies chest pain and Denies dyspnea Respiratory Respiratory: Denies cough and Denies dyspnea Gastrointestinal Gastrointestinal: Denies abdominal pain, Denies nausea and Denies vomiting Neurologic Neurologic: Denies weakness PFSH All Active Problems (Updated 07/10/23 @ 15:41 by Juan Antonio Bishop MD) Strep pharyngitis (Acute) Laceration of ankle, left (Acute) Arterial hemorrhage (Acute) Posterior tibial tendon tear, traumatic (Acute) Depression (Chronic) COVID-19 (Acute) Daily headache (Acute) Spells of decreased attentiveness (Acute) Hallucinations (Acute) Medical History ADHD Autism Chronic depression Chronic tension headache Cognitive impairment Herpes genitalis in men History of suicidal ideation Schizoaffective disorder Staphylococcal food poisoning TBI (traumatic brain injury) Social History Smoking/Tobacco Use Status: Current-Occasional Tobacco Type: cigarettes and e- cigarettes Smoking risk assessment performed?: Yes Alcohol Intake: current Alcohol Intake frequency: holidays/special occasions only Alcohol type: beer Drug use: Never Substance use type: does not use Current gender identity: male Do you feel safe at home: No Do you feel safe in your relationship?: No Exam Const General: no acute distress Orientation: alert HENMT Head: normal to inspection Ears: external ears normal General nose exam: external nose normal Mouth: moist mucous membranes Eyes General: appearance normal, both eyes and all related structures Neck Neck: normal visual inspection Resp Effort & Inspection: normal respiratory effort and able to speak in complete sentences Cardio Rate: regular rate Skin General skin exam: no rashes or lesions noted Neuro General: patient alert and patient oriented x3 Extrem General: normal to inspection Psych Appearance: well kempt Course Vital Signs Vital signs: Vital Signs Temperature 37.0 C 07/10/23 15:11 Pulse 111 H 07/10/23 15:11 Respiratory Rate 12 07/10/23 15:11 Blood Pressure 139/86 07/10/23 15:11 Pulse Oximetry 97 07/10/23 15:11 Temperature 37.0 C 07/10/23 15:11 Temperature Source Temporal Artery Scan 07/10/23 15:11 Pulse 111 H 07/10/23 15:11 Respiratory Rate 12 07/10/23 15:11 Blood Pressure 139/86 07/10/23 15:11 Blood Pressure Position Sitting 07/10/23 15:11 Pulse Oximetry 97 07/10/23 15:11 Oxygen Delivery Method Room Air 07/10/23 15:11 Oxygen Flow Rate 0 07/10/23 15:11 Pain Level 0 07/10/23 15:11
--- NOTE | 2023-07-10 15:28 | NUR.NOTE ---
Nursing Note: Pt is refusing labs and to wear paper scrubs at this time
== END 2023-07-10 15:43 | disposition left against medical advice (07) ==
PROVIDERS: Emergency Provider Emergency Medicine; PCP Physician Assistant
DX: R44.3 Hallucinations, unspecified (principal); Z91.148 Patient's other noncompliance with medication regimen for other reason; Z53.21 Procedure and treatment not carried out due to patient leaving prior to being seen by health care provider
CPT/HCPCS: 99283; 99282

== ENCOUNTER 2023-07-11 22:30 | Emergency (ER) | payer MEDICAID, SELFPAY ==
--- NOTE | 2023-07-11 22:35 | W.EDPROG ---
Date of service: 07/11/23 Time of Service: 22:35 Medical Decision Making Patient was at the [facility] when he said he had a absence seizure. EMS was called and he was brought to [facility]. When they arrived in the parking lot the patient told EMS staff that I only called 911 and took the ambulance ride so I could have a ride back to [facility]. I thought it would be more dangerous to walk back on the road and so I took the ambulance instead. Patient was never seen here in the emergency department. He was not seen here by myself. He never entered the emergency department at all. As soon as they arrived in the parking lot he jumped out and ran away. Discharge Plan Disposition Patient Disposition: Eloped Discharge Details Clinical Impression: Encounter for medical assessment Primary Care Provider: Loco Brice ED Provider: Jose Flor Home Meds and New Rx's Prescriptions: No Action aripiprazole [Abilify] 20 mg tablet 20 mg PO DAILY mirtazapine 30 mg tablet 30 mg PO QHS valacyclovir [Valtrex] 1 gram tablet 1,000 mg PO DAILY riboflavin (vitamin B2) 100 mg tablet 200 mg PO BID Qty: 360 3RF magnesium oxide 500 mg capsule 500 mg PO DAILY Qty: 90 3RF Patient Comments: not taking ibuprofen 600 mg tablet 600 mg PO TID PRN (Reason: pain) Qty: 90 3RF
== END 2023-07-11 22:45 | disposition left against medical advice (07) ==
PROVIDERS: Emergency Provider Student in an Organized Health Care Education/Training Program; PCP Physician Assistant
DX: Z53.21 Procedure and treatment not carried out due to patient leaving prior to being seen by health care provider (principal)

== ENCOUNTER 2023-07-14 19:29 | Emergency (ER) | payer MEDICAID, SELFPAY ==
[2023-07-14 19:29] VITALS: BP 150/92; PULSE 72; RESP 18; TEMP 36.6; O2SAT 97
--- NOTE | 2023-07-14 19:30 | RT.EKG_ITS ---
APPROVED REPORT Exam: Resting ECG Reason for Exam: [facility] Patient Location: E HR:72 bpm ECG Measurements Heart Rate 72 AXIS MD 132 P 22 QRSd 91 QRS -25 QT 361 T 1 QTc 394 Conclusion Sinus arrhythmia...V-rate 57- 87, variation>10% ST elev, probable normal early repol pattern...ST elevation, age<55 sinus rhyhtm, left axis, normal intervals, high voltage related to thin habutis; non ischemic
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
--- NOTE | 2023-07-14 19:45 | ED.GENADUL_ITS ---
Discharge Plan Discharge Details Chief Complaint: Suicide-Atempt Primary Care Provider: Loco Brice ED Provider: Ubaldo Awan Home Meds and New Rx's Prescriptions: No Action aripiprazole [Abilify] 20 mg tablet 20 mg PO DAILY mirtazapine 30 mg tablet 30 mg PO QHS valacyclovir [Valtrex] 1 gram tablet 1,000 mg PO DAILY riboflavin (vitamin B2) 100 mg tablet 200 mg PO BID Qty: 360 3RF magnesium oxide 500 mg capsule 500 mg PO DAILY Qty: 90 3RF Patient Comments: not taking ibuprofen 600 mg tablet 600 mg PO TID PRN (Reason: pain) Qty: 90 3RF Medical Decision Making 27-year-old male brought in by police after called for public disturbance, patient displaying self injures behavior endorses ingesting cardiac medications unknown quantity and medication name, patient resisted evaluation by police became violent with police and required physical restraint involving handcuffs, patient did sustain a self induced head injury from biting his own head right temporal abrasion, patient also has superficial excoriation/abrasion to right clavicular region, no crepitus or deformity. Patient is alert to self is not alert to time or place. Patient verbally confrontational with staff. Given altered mental status potential ingestion and potential trauma during arrest patient will need further medical evaluation. Currently patient resisting medical evaluation will likely need to chemically restrain in order to ensure proper evaluation from a toxicologic and traumatic standpoint. Have ordered labs imaging. PD at bedside 22: 49 patient evaluated by [facility] services, placed on involuntary hold. We will start patient's home medications. HPI General Date/Time Provider Initiated Documentation: 07/14/23 19:32 . HPI Narrative: 27-year-old male brought in under police custody, call was put out due to public disturbance, patient's partner went over to his place of residence as he was endorsing thoughts of killing himself patient endorses that he took an unknown amount of heart medication that belonged to his neighbor, when police arrived patient resisted evaluation ran from the police became physically violent towards them which required physical restraint. Patient repeatedly endorses that he only has 4 years to live due to her cancer diagnosis and does not qualify for medically assisted suicide. Patient believes it is 2019. Patient is unsure of the town that he is in. Related Data Home Medications Medication Instructions Recorded Confirmed ibuprofen 600 mg tablet 600 mg PO TID PRN pain #90 tabs 12/05/20 05/12/23 aripiprazole 20 mg tablet (Abilify) 20 mg PO DAILY 01/28/23 05/12/23 mirtazapine 30 mg tablet 30 mg PO QHS 01/28/23 05/12/23 valacyclovir 1 gram tablet 1,000 mg PO DAILY 01/28/23 05/12/23 (Valtrex) magnesium oxide 500 mg capsule 500 mg PO DAILY #90 caps 02/11/23 05/12/23 riboflavin (vitamin B2) 100 mg 200 mg PO BID #360 tabs 04/01/23 05/12/23 tablet Previous Rx's Medication Instructions Recorded ibuprofen 600 mg tablet 600 mg PO TID PRN pain #90 tabs 12/05/20 magnesium oxide 500 mg capsule 500 mg PO DAILY #90 caps 02/11/23 riboflavin (vitamin B2) 100 mg 200 mg PO BID #360 tabs 04/01/23 tablet Allergies Allergy/AdvReac Type Severity Reaction Status Date / Time risperidone [From Risperdal] Allergy Intermediate Psychosis Unverified 05/12/23 14:08 General Stated Complaint: Suicide-Atempt AGUSTINA: 3 Review of Systems Narrative: Review of Systems Constitutional: Possible toxicologic ingestion Eyes: negative ENT: negative Cardiovascular: negative Respiratory: negative Gastrointestinal: negative : negative Musculoskeletal: negative Skin: negative Neurologic: AMS, head injury Psych: negative PFSH All Active Problems (Updated 07/11/23 @ 22:38 by Jose Flor DO) Strep pharyngitis (Acute) Laceration of ankle, left (Acute) Arterial hemorrhage (Acute) Posterior tibial tendon tear, traumatic (Acute) Depression (Chronic) COVID-19 (Acute) Daily headache (Acute) Spells of decreased attentiveness (Acute) Hallucinations (Acute) Encounter for medical assessment (Acute) Medical History ADHD Autism Chronic depression Chronic tension headache Cognitive impairment Herpes genitalis in men History of suicidal ideation Schizoaffective disorder Staphylococcal food poisoning TBI (traumatic brain injury) Social History Smoking/Tobacco Use Status: Current-Occasional Tobacco Type: cigarettes and e- cigarettes Smoking risk assessment performed?: Yes Alcohol Intake: current Alcohol Intake frequency: holidays/special occasions only Alcohol type: beer Drug use: Never Substance use type: does not use Current gender identity: male Do you feel safe at home: No Do you feel safe in your relationship?: No Exam Narrative Exam Narrative: Physical Examination General: alert, awake, cooperative, resting comfortably, no acute distress HEENT: normocephalic, atraumatic; PERRL, EOM intact, conjunctiva normal; no nasal discharge; moist mucous membranes, oral and pharyngeal mucosa normal, tolerating secretions Neck: supple, trachea midline; full ROM Chest: normal to inspection Respiratory: normal respiratory effort, speaking in full sentences, clear to a uscultation, no wheezing, rales or rhonchi Cardiac: regular rate, regular rhythm, S1S2 intact, no murmurs rubs or gallops GI: abdomen soft, non-tender, non-distended; no palpable mass or hepatosplen omegaly Back: No midline spinal tenderness Skin: Excoriation/abrasion to right clavicular region without crepitus or deformity; abrasion to right temporal region Neuro: Patient is alert to self patient is not alert to place or time. Moving all extremities, ambulatory without assistance no ataxia Extremities: Abrasion/induration to bilateral wrists Psych: Intentional ingestion, self injures behavior Course Vital Signs Vital signs: Vital Signs Temperature 36.6 C 07/14/23 19:29 Pulse 72 07/14/23 19:29 Respiratory Rate 18 07/14/23 19:29 Blood Pressure 150/92 H 07/14/23 19:29 Pulse Oximetry 97 07/14/23 19:29 Temperature 36.6 C 07/14/23 19:29 Temperature Source Oral 07/14/23 19:29 Pulse 72 07/14/23 19:29 Respiratory Rate 18 07/14/23 19:29 Blood Pressure 150/92 H 07/14/23 19:29 Pulse Oximetry 97 07/14/23 19:29 Oxygen Delivery Method Room Air 07/14/23 19:29 Oxygen Flow Rate 0 07/14/23 19:29
[2023-07-14 20:07] LABS: Abs Immature Grans 0.02 10^3/uL (0.0-0.06); Absolute Basophil Count 0.02 10^3/uL (0.0-0.2); Absolute Eosinophil Count 0.01 10^3/uL (0.0-0.7); Absolute Lymphocyte Count 1.08 10^3/uL (1.2-3.4); Absolute Monocyte Count 0.36 10^3/uL (0.1-0.8); Absolute Neutrophil Count 5.42 10^3/uL (1.2-6.7); Basophils % 0.3; Eosinophils % 0.1; HCT 44.1 % (40.0-50.0); HGB 15.6 g/dL (13.5-17.5); Immature Grans % 0.3; Lymphocytes % 15.6; MCH 29.5 pg (27.0-33.0); MCHC 35.4 % (32.0-36.0); MCV 84 fL (80-95); MPV 10.6 fL (8.0-11.0); Monocytes % 5.2; Neutrophils % 78.5; Platelet Count 220 10^3/uL (130-400); RBC 5.28 10^6/uL (4.36-5.78); RDW 12.5 % (11.8-14.1); RDW-SD 37.8 fL; WBC 6.91 10^3/uL (4.4-10.8)
[2023-07-14 20:16] LABS: Bilirubin Negative (Negative); Blood Negative (Negative); Clarity Sl Cloudy (Clear); Glucose Negative (Negative); Ketones Negative (Negative); Leukocyte Esterase Negative (Negative); Nitrite Negative (Negative); Specific Gravity >= 1.030 (1.005-1.025); Urobilinogen 0.2 mg/dL (Up to 0.2)
[2023-07-14 20:23] LABS: PTT Activated 22.5 sec (21.5-31.9); Prothrombin Time 9.9 sec (9.3-11.0)
[2023-07-14 20:28] LABS: Salicylate < 2.8 mg/dL (<2.8)
[2023-07-14 20:30] LABS: Acetaminophen < 2 ug/mL (10-30)
[2023-07-14 20:33] LABS: *AMPHETAMINES SCREEN URINE Negative (Negative); *BARBITURATES SCREEN URINE Negative (Negative); *BENZODIAZEPINES SCREEN URINE Negative (Negative); Cannabinoids THC Negative (Negative); Cocaine Screen,Urine Negative (Negative); Epithelial Cells Negative HPF (Negative); METHADONE URINE SCREEN Negative (Negative); OPIATES URINE SCREEN Negative (Negative); RBC 0-2 HPF (0-2); Tricyclic Antidepressants Negative (Negative); WBC 0-2 HPF (0-5)
[2023-07-14 20:34] LABS: Bacteria Rare HPF (Negative); C & S Indicated? Yes; Casts 0-2 Hyaline LPF (Negative); Crystals Negative HPF (Negative); Mucus Heavy (Negative)
[2023-07-14 20:42] LABS: ALT 17 U/L (16-63); AST 14 U/L (15-37); Albumin 4.9 g/dL (3.4-5.0); Alkaline Phosphatase 82 U/L (46-116); Anion Gap 11.8 mmol/L (3-11); BUN 16 mg/dL (7-18); Bilirubin, Total 0.7 mg/dL (0.2-1.0); CO2 27.2 mmol/L (21.0-32.0); CREATININE 1.2 mg/dL (0.70-1.30); Calcium 9.9 mg/dL (8.5-10.1); Chloride 104 mmol/L (98-107); ETHANOL BLOOD < 3.0 mg/dL (<10); Estimated GFR 86.07 (mL/min/1.73m2); Glucose 119 mg/dL (74-106); Lipase 20 U/L (16-77); Potassium 3.6 mmol/L (3.5-5.1); Sodium 143 mmol/L (136-145); TSH (W/Ref FT4) 1.76 uIU/mL (0.36-3.74); Total Protein 8.4 g/dL (6.4-8.2)
--- OUTSIDE RECORDS SUMMARY | 2023-07-14 20:55 | XMS_ITS | Continuity of Care Document ---
Author Name Unknown Organization [facility] Address [address] [place] [address] Care Team Providers Care Mental Health Orderly Name Role Phone AUSTIN MCKEON RPA Primary Care Physician Encounter [facility] NBR [phone] Date(s): 06/21/23 - 06/21/23 [facility] [address] [place] [address]- Discharge Disposition: Left Against Medical Advice Attending Physician: Roosevelt Todd MD Admitting Physician: Roosevelt Todd MD Functional Status 06/21/23 Other exposure to Infectious Disease Non e Results Laboratory List Name Date Acetaminophen Level 06/21/23 Alcohol Lvl 06/21/23 CBC w/ Diff 06/21/23 Comprehensive Metabolic Panel 06/21/23 Drug Screen Urine 06/21/23 Salicylate Level 06/21/23 TSH w/ Rflx to Free T4 06/21/23 Urinalysis with Micro if Indicated and C ulture if Indicated 06/21/23 Automated Diff 06/21/23 Most recent to oldest [Reference Range]: 1 WBC [4.8-10.8 K/mcL] 7.1 K/mcL (06/21/23 4:43 PM) RBC [4.20-6.10 Million/mcL] 5.31 Million /mcL (06/21/23 4:43 PM) Neutro Auto [42.2-75.2 %] 72.8 % (06/21/23 4:43 PM) Lymph Auto [20.5-51.1 %] 21.1 % (06/21/23 4:43 PM) Henderson Auto [1.7-9.3 %] 4.8 % (06/21/23 4:43 PM) Basophil Auto [0.0-0.8 %] 0.6 % (06/21/23 4:43 PM) BUN [8-26 mg/dL] 12 mg/dL (06/21/23 4:43 PM) U Amph Scrn [Negative] Negative (06/21/23 4:43 PM) UA Color [Yellow] Yellow (06/21/23 4:43 PM) Glucose Level [74-106 mg/dL] 95 mg/dL (06/21/23 4:43 PM) Potassium Level [3.5-5.1 mmol/L] 3.9 mmo l/L (06/21/23 4:43 PM) Baso Absolute [0.0-0.2 K/mcL] 0.0 K/mcL (06/21/23 4:43 PM) U Benzodia Scrn [Negative] Negative (06/21/23 4:43 PM) MCV [80.0-94.0 fL] 84.0 fL (06/21/23 4:43 PM) UA Urobilinogen [0.2] 1.0 *ABN* (06/21/23 4:43 PM) UA Bili [Negative] Negative (06/21/23 4:43 PM) UA Ketones [Negative] Negative (06/21/23 4:43 PM) AST [15-41 IntlUnit/L] 18 IntlUnit/L (06/21/23 4:43 PM) ALT [17-63 IntlUnit/L] 14 IntlUnit/L *LOW* (06/21/23 4:43 PM) MCHC [32.0-36.0 g/dL] 35.4 g/dL (06/21/23 4:43 PM) Osmolality [275-295 mOsm/kg] 281 mOsm/kg (06/21/23 4:43 PM) Sodium Level [134-143 mmol/L] 141 mmol/L (06/21/23 4:43 PM) UA Leuk Est [Negative] Negative (06/21/23 4:43 PM) Lymph Absolute [1.2-3.4 K/mcL] 1.5 K/mcL (06/21/23 4:43 PM) UA Nitrite [Negative] Negative (06/21/23 4:43 PM) UA Glucose [Negative] Negative (06/21/23 4:43 PM) Hct [42.0-52.0 %] 44.6 % (06/21/23 4:43 PM) U Cocaine Scrn [Negative] Negative (06/21/23 4:43 PM) Calcium Level [8.9-10.3 mg/dL] 9.9 mg/dL (06/21/23 4:43 PM) Henderson Absolute [0.1-0.6 K/mcL] 0.3 K/mcL (06/21/23 4:43 PM) Albumin Level [3.5-5.0 g/dL] 4.7 g/dL (06/21/23 4:43 PM) Protein Total [6.5-8.1 g/dL] 7.9 g/dL (06/21/23 4:43 PM) UA Protein [Negative] Negative (06/21/23 4:43 PM) MCH [27.0-31.0 pg] 29.8 pg (06/21/23 4:43 PM) Neutro Absolute [1.4-6.5 K/mcL] 5.2 K/mc L (06/21/23 4:43 PM) Bilirubin Total [0.2-1.2 mg/dL] 1.0 mg/d L (06/21/23 4:43 PM) Hgb [14.0-18.0 g/dL] 15.8 g/dL (06/21/23 4:43 PM) Alk Phos [38-130 IntlUnit/L] 65 IntlUnit /L (06/21/23 4:43 PM) UA Blood [Negative] Negative (06/21/23 4:43 PM) MPV [7.4-10.4 fL] 10.5 fL *HI* (06/21/23 4:43 PM) Salicylate Level [<=30.0 mg/dL] <4.0 mg/ dL (06/21/23 4:43 PM) Ethanol Level [0.00-0.08 g/dL] see comme nt g/dL 1 *NA* (06/21/23 4:43 PM) UA Spec Grav [1.001-1.030] 1.020 (06/21/23 4:43 PM) Platelets [130-400 K/mcL] 216 K/mcL (06/21/23 4:43 PM) CO2 [22-32 mmol/L] 25 mmol/L (06/21/23 4:43 PM) Eos Absolute [0.0-0.2 K/mcL] 0.0 K/mcL (06/21/23 4:43 PM) U Lindy Scrn [Negative] Negative (06/21/23 4:43 PM) TSH [0.45-5.33 mIntlUnit/mL] 1.68 mIntlU nit/mL (06/21/23 4:43 PM) UA pH [5.00-9.00] 7.00 (06/21/23 4:43 PM) U Opiate Scrn [Negative] Negative (06/21/23 4:43 PM) UA Appear [Clear] Clear (06/21/23 4:43 PM) Acetaminophen Level [10.0-30.0 ug/mL] <1 0.0 ug/mL 2 (06/21/23 4:43 PM) Chloride Level [98-111 mmol/L] 106 mmol/ L (06/21/23 4:43 PM) U Oxy Scrn [Negative] Negative (06/21/23 4:43 PM) U PCP Scrn [Negative] Negative (06/21/23 4:43 PM) RDW-CV [11.5-14.5 %] 12.4 % (06/21/23 4:43 PM) A/G Ratio 1.5 *NA* (06/21/23 4:43 PM) BUN/Creat Ratio [8.0-20.0] 11.8 (06/21/23 4:43 PM) Globulin 3.2 *NA* (06/21/23 4:43 PM) U THC Scr [Negative] Negative (06/21/23 4:43 PM) U PPX Scr [Negative] Negative (06/21/23 4:43 PM) U Methadone Scr [Negative] Negative (06/21/23 4:43 PM) Imm Gran Absolute 0.01 *NA* (06/21/23 4:43 PM) Imm Gran Auto [0.0-0.5 %] 0.1 % (06/21/23 4:43 PM) U Buprenorph Scr [Negative] Negative (06/21/23 4:43 PM) U mAMP Scr [Negative] Negative (06/21/23 4:43 PM) U TCA Scr [Negative] Negative (06/21/23 4:43 PM) Creatinine Level [0.61-1.24 mg/dL] 1.02 mg/dL (06/21/23 4:43 PM) Anion Gap [3.0-12.0] 10.0 (06/21/23 4:43 PM) Eos, Auto [0.00-3.00 %] 0.60 % (06/21/23 4:43 PM) Instr Ethanol Lvl [<=5 mg/dL] <5 mg/dL (06/21/23 4:43 PM) eGFR CKD-EPI [>=60 mL/min/1.73 m2] 105 m L/min/1.73 m2 (06/21/23 4:43 PM) 1Result Comment: Unable to calculate ratio value as result is less than the linear limit. 2Interpretive Data: TOXIC: >150 ug/dL 4 HOURS AFTER INGESTION >75 ug/dL 8 HOURS AFTER INGESTION >40 ug/dL 12 HOURS AFTER INGESTION Vital Signs Most recent to oldest [Reference Range]: 1 Temperature Temporal Artery [36-38 Deg C ] 37.0 Deg C (06/21/23 3:51 PM) Peripheral Pulse Rate [60-100 bpm] 112 b pm *HI* (06/21/23 3:51 PM) Respiratory Rate [12-24 br/min] 16 br/mi n (06/21/23 3:51 PM) Blood Pressure [90-140/60-90 mmHg] 146/8 9mmHg *HI* (06/21/23 3:51 PM) Weight Dosing 62.00 kg (06/21/23 4:08 PM) Weight Estimated 62.00 kg (06/21/23 3:51 PM) Height/Length Dosing 182.000 cm (06/21/23 4:08 PM) Height/Length Estimated 182.000 cm (06/21/23 3:51 PM) Social History Social History Type Response Tobacco Never tobacco user T obacco Use:. Sex Physician Emergency department Note * Faviola Michelle APRN: PERFORM Event Display: ED Note Physician Authored Date: [id number] KATHY HERNANDEZ :1995 Age:27 years Sex:Male Visit Date:06/21/2023 Primary Care Physician: AUSTIN MCKEON RPA Basic Information Time Seen: Miguel Angel AMADORKevinalfred Barahona / 06/21/2023 15:54 Chief Complaint Struggling with being triggered and overwhelmed in various situations, struggling with past trauma.Seeking voluntary stay somewhere to help with coping mechanisms. History of self harm. History Of Present Illness: Patient is a 27-year-old male with a past medical history of??high functioning autism, PTSD, anxiety depression,??bipolar 1 and 2??who presents emergency department today seeking??assistance in obtaining??voluntary??admission. ??He states that??he is??seeking resources to improve his??coping??mechanisms. ??He states that his?? is currently ??going into her third trimester,??he states that she has had some ??hormonal??changes ??and??he does not want to??react inappropriately to helio??he states that??sometimes??her yelling or reaction can be triggering to him given his past medical history he states that he??wishes to??seek help to get resources.?He denies suicidal or homicidal ideation,??does state a past medical history of self harming behaviors. Review of Systems: General: Denies fever, chills, night sweats, unintentional weight changes, changes in appetite. Skin: Denies rashes, lesions, ulcerations, erythema, swelling, discoloration. HEENT: Denies headache, visual changes, changes in hearing, sore throat, hoarseness, difficulty swallowing, eye pain or drainage, ear pain or drainage, nasal discharge, enlarged lymph nodes, or neck tenderness. Resp: Denies cough, wheezing, shortness of breath, orthopnea, CV: Denies chest pain, chest pressure, palpitations, syncope, edema. GI: Denies nausea, vomiting, abdominal pain MS: Denies joint pain, joint swelling, muscle cramps, muscle weakness, stiffness Neuro: Denies weakness, paresthesias, seizures, tremors, dizziness. Physical Exam Vitals & Measurements T:??37.0?C ??(Temporal Artery)?? HR:??112??(Peripheral)?? RR:??16?? BP:??146/89?? SpO2:??96%?? HT:??182.000??cm?? WT:??62.00??kg??(Estimated)?? O2 Therapy:??Room air?? General: Well-appearing, no acute distress, alert and oriented x3. Skin:??Superficial abrasions to the left arm. Head: Normal cephalic without trauma or injury. Neck: Supple, nontender, normal range of motion Eye: Pupils reactive. ??Conjunctiva clear. Sclera nonicteric. ??No swelling, obvious foreign bodies. ??Extraocular movement intact. ENT ear: Normal external, canal clear, TMs normal bilaterally. ??Nose: No discharge, normal mucosa,no swelling. ??Sinuses: Nontender to percussion. ??Oropharynx: Normal external, mucosal without mass, lesions, ulcerations. ??Dentition is intact. ??Tonsils not enlarged. ??No erythema, exudate, lesions, uvula midline. Cardiovascular: Regular rate and rhythm. ??No murmur, rubs, or gallops. Respiratory: Clear to auscultation bilaterally. ??No wheezes, rales, rhonchi. Chest: No deformity. ??Nontender, normal inspiration and expiration. Abdomen: Soft, nontender. ??No peritoneal signs, rigidity, guarding. ??No CVA tenderness. Musculoskeletal: Normal range of motion the large joints without joint swelling. ??Gait normal. Mental status: Normal mentation, normal interaction, good cognitive functioning, good executive functioning, alert and oriented x3. Medical Decision Making: Patient requested evaluation for mental health to obtain resources?? and voluntary treatment?? for effective coping in the presence of increased anxiety.?? The initial??evaluation began with lab work, exam??etc. all unremarkable, when the patient was??prepped to be seen by [facility] he had eloped.? At??no time did he??verbalized any??thoughts of suicidal or homicidal??thoughts or behavior,?? he was alert and oriented,??calm, no flight of ideas. Pt eloped prior to [facility] eval. Procedure No Qualifying Data Assessment/Plan Ordered: Consult to Mental Health, Routine, anxiety/depression, Consult to [facility] Safety Checks, 06/21/23 16:40:00 EDT, every 1 hr, Low Risk Problem List/Past Medical History Ongoing No qualifying data Historical No qualifying data Allergies No active allergies Social History Alcohol Past, Liquor- Comments: former alcoholic Electronic Cigarette/Vaping Electronic Cigarette Use: Use, within last 90 days. Type: Nicotine infused. Tobacco Never tobacco user Tobacco Use:. Lab Results CBC and Differential?? LATEST RESULTS?? WBC?? 06/21/23 16:43?? 7.1?? RBC?? 06/21/23 16:43?? 5.31?? Hgb?? 06/21/23 16:43?? 15.8?? Hct?? 06/21/23 16:43?? 44.6?? MCV?? 06/21/23 16:43?? 84.0?? MCH?? 06/21/23 16:43?? 29.8?? MCHC?? 06/21/23 16:43?? 35.4?? RDW-CV?? 06/21/23 16:43?? 12.4?? Platelets?? 06/21/23 16:43?? 216?? MPV?? 06/21/23 16:43?? 10.5 ??High?? Neutro Auto?? 06/21/23 16:43?? 72.8?? Lymph Auto?? 06/21/23 16:43?? 21.1?? Henderson Auto?? 06/21/23 16:43?? 4.8?? Eos, Auto?? 06/21/23 16:43?? 0.60?? Basophil Auto?? 06/21/23 16:43?? 0.6?? Imm Gran Auto?? 06/21/23 16:43?? 0.1?? Neutro Absolute?? 06/21/23 16:43?? 5.2?? Lymph Absolute?? 06/21/23 16:43?? 1.5?? Henderson Absolute?? 06/21/23 16:43?? 0.3?? Eos Absolute?? 06/21/23 16:43?? 0.0?? Baso Absolute?? 06/21/23 16:43?? 0.0?? Imm Gran Absolute?? 06/21/23 16:43?? 0.01? Routine Chemistry?? LATEST RESULTS?? Sodium Level?? 06/21/23 16:43?? 141?? Potassium Level?? 06/21/23 16:43?? 3.9?? Chloride Level?? 06/21/23 16:43?? 106?? CO2?? 06/21/23 16:43?? 25?? Alk Phos?? 06/21/23 16:43?? 65?? AST?? 06/21/23 16:43?? 18?? ALT?? 06/21/23 16:43?? 14 ??Low?? BUN?? 06/21/23 16:43?? 12?? Glucose Level?? 06/21/23 16:43?? 95?? Creatinine Level?? 06/21/23 16:43?? 1.02?? BUN/Creat Ratio?? 06/21/23 16:43?? 11.8?? eGFR CKD-EPI?? 06/21/23 16:43?? 105?? Calcium Level?? 06/21/23 16:43?? 9.9?? Protein Total?? 06/21/23 16:43?? 7.9?? Albumin Level?? 06/21/23 16:43?? 4.7?? Globulin?? 06/21/23 16:43?? 3.2?? A/G Ratio?? 06/21/23 16:43?? 1.5?? Bilirubin Total?? 06/21/23 16:43?? 1.0?? Anion Gap?? 06/21/23 16:43?? 10.0?? Osmolality?? 06/21/23 16:43?? 281? Thyroid Studies?? LATEST RESULTS?? TSH?? 06/21/23 16:43?? 1.68? Serum Toxicology?? LATEST RESULTS?? Acetaminophen Level?? 06/21/23 16:43?? <10.0?? Salicylate Level?? 06/21/23 16:43?? <4.0?? Ethanol Level?? 06/21/23 16:43?? see comment?? Instr Ethanol Lvl?? 06/21/23 16:43?? <5? Urine Toxicology?? LATEST RESULTS?? U Amph Scrn?? 06/21/23 16:43?? Negative?? U Lindy Scrn?? 06/21/23 16:43?? Negative?? U Benzodia Scrn?? 06/21/23 16:43?? Negative?? U Buprenorph Scr?? 06/21/23 16:43?? Negative?? U Cocaine Scrn?? 06/21/23 16:43?? Negative?? U TCA Scr?? 06/21/23 16:43?? Negative?? U THC Scr?? 06/21/23 16:43?? Negative?? U mAMP Scr?? 06/21/23 16:43?? Negative?? U Methadone Scr?? 06/21/23 16:43?? Negative?? U Opiate Scrn?? 06/21/23 16:43?? Negative?? U Oxy Scrn?? 06/21/23 16:43?? Negative?? U PCP Scrn?? 06/21/23 16:43?? Negative?? U PPX Scr?? 06/21/23 16:43?? Negative? UA Macroscopic?? LATEST RESULTS?? UA Color?? 06/21/23 16:43?? Yellow?? UA Appear?? 06/21/23 16:43?? Clear?? UA Glucose?? 06/21/23 16:43?? Negative?? UA Bili?? 06/21/23 16:43?? Negative?? UA Ketones?? 06/21/23 16:43?? Negative?? UA Spec Grav?? 06/21/23 16:43?? 1.020?? UA Blood?? 06/21/23 16:43?? Negative?? UA pH?? 06/21/23 16:43?? 7.00?? UA Protein?? 06/21/23 16:43?? Negative?? UA Urobilinogen?? 06/21/23 16:43?? 1.0 Abnormal?? UA Nitrite?? 06/21/23 16:43?? Negative?? UA Leuk Est?? 06/21/23 16:43?? Negative? Electronically Signed on 06/21/23 06:18 PM Faviola Michelle APRN Patient Care team information Care Team Personnel Name: AUSTIN MCKEON RPA Position: No Access Member Role: Primary Care Physician Address: Address: [address] [place] [phone] [place] Name: Constanza Mckeon Position: Nurse Member Role: ED Nurse Name: Faviola Michelle APRN Position: Physician Member Role: Physician Address: Address: [address] [place] [address] Care Team Related Persons Name: FLOR AGUILAR Address: Home [address] [facility] [id number]
--- OUTSIDE RECORDS SUMMARY | 2023-07-14 20:56 | XMS_ITS | Continuity of Care Document ---
Author Name Unknown Organization [facility] Address [address] [place] [address] Care Team Providers Care Support Dba Name Role Phone AUSTIN MCKEON RPA Primary Care Physician Encounter LTTL_GA FIN NBR [phone] Date(s): 06/23/23 - 06/23/[address] [address]- Encounter Diagnosis Mental health problem(Discharge Diagnosis) - 06/23/23 Discharge Disposition: Home or Self Care Attending Physician: Matheus Holloway MD Admitting Physician: Matheus Holloway MD Allergies, Adverse Reactions, Alerts Substance Reaction Severity Status risperiDONE Severe Active Medications ARIPiprazole 15 mg oral tablet 0 Refill(s) Start Date: 06/23/23 Status: Ordered magnesium oxide 500 mg oral tablet 0 Refill(s) Start Date: 06/23/23 Status: Ordered Melatonin 3 mg oral tablet 0 Refill(s) Start Date: 06/23/23 Status: Ordered mirtazapine 15 mg oral tablet 0 Refill(s) Start Date: 06/23/23 Status: Ordered valACYclovir 1 g oral tablet 0 Refill(s) Start Date: 06/23/23 Status: Ordered Vitamin B2 100 mg oral tablet 0 Refill(s) Start Date: 06/23/23 Status: Ordered Vitamin B2 100 mg oral tablet 0 Refill(s) Start Date: 06/23/23 Status: Ordered Mental Status 06/23/23 Eye Opening Response Fuad Spontaneous ly Best Verbal Response Telford Oriented Best Motor Response Telford Obeys comman ds Telford Coma Score 15 Results Laboratory List Name Date Acetaminophen Level 06/23/23 Alcohol Lvl (ETOH Level) 06/23/23 CBC w/ Diff 06/23/23 Comprehensive Metabolic Panel (CMP) Salicylate Level 06/23/23 Drug Screen Urine 06/23/23 Automated Diff 06/23/23 Most recent to oldest [Reference Range]: 1 WBC [4.8-10.8 K/mcL] 7.2 K/mcL (06/23/23 11:38 AM) RBC [4.20-6.10 Million/mcL] 5.04 Million /mcL (06/23/23 11:38 AM) Neutro Auto [42.2-75.2 %] 76.1 % *HI* (06/23/23 11:38 AM) Lymph Auto [20.5-51.1 %] 18.9 % *LOW* (06/23/23 11:38 AM) Caswell Auto [1.7-9.3 %] 4.1 % (06/23/23 11:38 AM) Basophil Auto [0.0-0.8 %] 0.3 % (06/23/23 11:38 AM) BUN [8-26 mg/dL] 13 mg/dL (06/23/23 11:38 AM) U Amph Scrn [Negative] Negative (06/23/23 11:20 AM) Glucose Level [74-106 mg/dL] 112 mg/dL *HI* (06/23/23 11:38 AM) Potassium Level [3.5-5.1 mmol/L] 4.0 mmo l/L (06/23/23 11:38 AM) Baso Absolute [0.0-0.2 K/mcL] 0.0 K/mcL (06/23/23 11:38 AM) U Benzodia Scrn [Negative] Negative (06/23/23 11:20 AM) MCV [80.0-94.0 fL] 83.7 fL (06/23/23 11:38 AM) AST [15-41 IntlUnit/L] 17 IntlUnit/L (06/23/23 11:38 AM) ALT [17-63 IntlUnit/L] 13 IntlUnit/L *LOW* (06/23/23 11:38 AM) MCHC [32.0-36.0 g/dL] 36.3 g/dL *HI* (06/23/23 11:38 AM) Osmolality [275-295 mOsm/kg] 280 mOsm/kg (06/23/23 11:38 AM) Sodium Level [134-143 mmol/L] 140 mmol/L (06/23/23 11:38 AM) Lymph Absolute [1.2-3.4 K/mcL] 1.4 K/mcL (06/23/23 11:38 AM) Hct [42.0-52.0 %] 42.2 % (06/23/23 11:38 AM) U Cocaine Scrn [Negative] Negative (06/23/23 11:20 AM) Calcium Level [8.9-10.3 mg/dL] 10.1 mg/d L (06/23/23 11:38 AM) Caswell Absolute [0.1-0.6 K/mcL] 0.3 K/mcL (06/23/23 11:38 AM) Albumin Level [3.5-5.0 g/dL] 4.7 g/dL (06/23/23 11:38 AM) Protein Total [6.5-8.1 g/dL] 7.7 g/dL (06/23/23 11:38 AM) MCH [27.0-31.0 pg] 30.4 pg (06/23/23 11:38 AM) Neutro Absolute [1.4-6.5 K/mcL] 5.4 K/mc L (06/23/23 11:38 AM) Bilirubin Total [0.2-1.2 mg/dL] 0.6 mg/d L (06/23/23 11:38 AM) Hgb [14.0-18.0 g/dL] 15.3 g/dL (06/23/23 11:38 AM) Alk Phos [38-130 IntlUnit/L] 66 IntlUnit /L (06/23/23 11:38 AM) MPV [7.4-10.4 fL] 10.6 fL *HI* (06/23/23 11:38 AM) Salicylate Level [<=30.0 mg/dL] <4.0 mg/ dL (06/23/23 11:38 AM) Ethanol Level [0.00-0.08 g/dL] 0.02 g/dL (06/23/23 11:38 AM) Platelets [130-400 K/mcL] 221 K/mcL (06/23/23 11:38 AM) CO2 [22-32 mmol/L] 23 mmol/L (06/23/23 11:38 AM) Eos Absolute [0.0-0.2 K/mcL] 0.0 K/mcL (06/23/23:38 AM) U Lindy Scrn [Negative] Negative (06/23/23 11:20 AM) U Opiate Scrn [Negative] Negative (06/23/23 11:20 AM) Acetaminophen Level [10.0-30.0 ug/mL] <1 0.0 ug/mL 1 (06/23/23 11:38 AM) Chloride Level [98-111 mmol/L] 104 mmol/ L (06/23/23 11:38 AM) U Oxy Scrn [Negative] Negative (06/23/23 11: AM) U PCP Scrn [Negative] Negative (06/23/23 11: AM) RDW-CV [11.5-14.5 %] 12.4 % (06/23/23 11:38 AM) A/G Ratio 1.6 *NA* (06/23/23 11:38 AM) BUN/Creat Ratio [8.0-20.0] 13.5 (06/23/23 11:38 AM) Globulin 3.0 *NA* (06/23/23 11:38 AM) U THC Scr [Negative] Negative (06/23/23 11:20 AM) U PPX Scr [Negative] Negative (06/23/23 11:20 AM) U Methadone Scr [Negative] Negative (06/23/23 11:20 AM) Imm Gran Absolute 0.02 *NA* (06/23/23:38 AM) Imm Gran Auto [0.0-0.5 %] 0.3 % (06/23/23 11:38 AM) Slide Review Not Indicated (06/23/23 11:38 AM) U Buprenorph Scr [Negative] Negative (06/23/23 11:20 AM) U mAMP Scr [Negative] Negative (06/23/23 11:20 AM) U TCA Scr [Negative] Negative (06/23/23 11:20 AM) Creatinine Level [0.61-1.24 mg/dL] 0.96 mg/dL (06/23/23 11:38 AM) Anion Gap [3.0-12.0] 13.0 *HI* (06/23/23 11:38 AM) Eos, Auto [0.00-3.00 %] 0.30 % (06/23/23 11:38 AM) Instr Ethanol Lvl [<=5 mg/dL] 20 mg/dL *HI* (06/23/23 11:38 AM) eGFR CKD-EPI [>=60 mL/min/1.73 m2] 112 m L/min/1.73 m2 (06/23/23 11:38 AM) 1Interpretive Data: TOXIC: >150 ug/dL 4 HOURS AFTER INGESTION >75 ug/dL 8 HOURS AFTER INGESTION >40 ug/dL 12 HOURS AFTER INGESTION Vital Signs Most recent to oldest [Reference Range]: 1 Temperature Oral [35.8-37.3 Deg C] 36.5 Deg C (06/23/23 11:03 AM) Peripheral Pulse Rate [60-100 bpm] 109 b pm *HI* (06/23/23 11:03 AM) Respiratory Rate [12-24 br/min] 16 br/mi n (06/23/23 11:03 AM) Blood Pressure [90-140/60-90 mmHg] 144/9 0mmHg *HI* (06/23/23 11:03 AM) Weight 65.70 kg (06/23/23 11:03 AM) Weight Dosing 65.70 kg (06/23/23 11:38 AM) Height 193.040 cm (06/23/23 11:03 AM) Height/Length Dosing 193.040 cm (06/23/23 11:38 AM) Body Mass Index 18.000 kg/m2 (06/23/23 11:03 AM) Social History Social History Type Response Tobacco Never tobacco user T obacco Use:. Sex Hospital Discharge Instructions Patient Education 06/23/2023 11:06:14 Managing Bipolar Disorder Managing Bipolar Disorder If you have been diagnosed with bipolar disorder, you may be relieved to now know that this is why you have felt or behaved a certain way. You may also feel overwhelmed about the treatment ahead, howto get needed support, and how to deal with your condition each day. With care and support, you canlearn to manage your symptoms and live with your condition. How to manage lifestyle changes Managing stress Stress is your body's reaction to life changes and events, both good and bad. Stress can affect your condition, so it is important to learn how to manage stress. Some techniques to help manage stressinclude: ??? Meditation, muscle relaxation, and breathing exercises. ??? Exercise. Even a short daily walk can help to lower stress levels. ??? Getting enough good-quality sleep. Too little sleep can trigger the emotional highs of oneyda. ??? Making a schedule to manage your time. A daily schedule can help keep you from feeling overwhelmed by tasks and deadlines. ??? Spending time on hobbies you enjoy. Medicines Your health care provider may suggest certain medicines if he or she thinks that these will help improve your condition. Avoid using caffeine, alcohol, and other substances that may prevent your medicines from working properly. Be sure to: ??? Talk with your pharmacist or health care provider about all the medicines that you take, their possible side effects, and which medicines are safe to take together. ??? Make it your goal to take part in all treatment decisions with your health care provider (shared decision-making). Ask about possible side effects of medicines, and share how you feel about having those side effects. It is best if shared decision-making is part of your total treatment plan. If you are taking medicines as part of your treatment, do not stop taking them before asking if it is safe to stop. You may need to have the medicine slowly decreased (tapered) over time to lower therisk of harmful side effects. Relationships Spend time with people whom you trust and with whom you feel a sense of understanding and calm. Tryto find friends or family members who make you feel safe and can help you control feelings of oneyda. Consider going to couples counseling, family education classes, or family therapy to: ??? Teach your loved ones about your condition and suggest ways they can support you. ??? Help resolve conflicts. ??? Help develop communication skills in your relationships. How to recognize changes in your condition Everyone responds differently to treatment for bipolar disorder. Signs that your condition is improving include: ??? Leveling of your mood. You may have less anger and excitement about daily activities, and your low moods may not be as bad. ??? Your symptoms being less intense. ??? Feeling calm more often. ??? Thinking clearly. ??? Not experiencing consequences for extreme behavior. ??? Feeling like your life is settling down. ??? Your behavior seeming more normal to you and to other people. Signs that your condition may be getting worse include: ??? Sleep problems. ??? Moods cycling between deep lows and unusually high energy. ??? Extreme emotions, or more anger toward loved ones. ??? Staying away from others, or isolating yourself. ??? A feeling of power or superiority. ??? Completing a lot of tasks in a very short amount of time. ??? Unusual thoughts and behaviors. ??? Thoughts of suicide. Follow these instructions at home: Medicines ??? Take llde-zmz-nejbjht and prescription medicines only as told by your health care provider or pharmacist. ??? Ask your pharmacist what hnaa-ugr-uftszpz cold medicines you should avoid. Some medicines can make symptoms worse. General instructions ??? Ask for support from trusted family members or friends to make sure you stay on track with yourtreatment. ??? Keep a journal to write down your daily moods, medicines, sleep habits, and life events. This may bring you more success with your treatment. ??? Make and follow a routine for daily meal times. Eat healthy foods, such as whole grains, vegetables, and fresh fruit. ??? Try to go to sleep and wake up around the same time every day. ??? Avoid using products that contain nicotine or tobacco. If you want help quitting, ask your health care provider. ??? Keep all follow-up visits. This is important. Where to find support Helplines and other support ??? Substance Abuse and Mental Health Services Administration ([facility]) National Helpline: 5-887-289-HELP (2526) ??? National [place] on Mental Illness ([employer]) HelpLine: 8-456-555-ISAAK (2859) or email ??? Depression and Bipolar Support [place]: dbsalliance.org Talking to others ??? Try making a list of the people you may want to tell about your condition, such as the people you trust most. ??? Plan what you are willing and not willing to talk about. Think about your needs ahead of time and how others can support you. ??? Let your loved ones know when they can share advice and when you would just like them to listen. ??? Give your loved ones information about bipolar disorder and encourage them to learn about the condition. Finances Not all insurance plans provide the same coverage for mental health care, so it is important to check with your insurance carrier. If paying for co-pays or counseling services is a problem, search for a local or [facility] mental health care center. Public mental health care services may be offered there at a low cost or no cost when you are not able to see a private health care provider. If you are taking medicine for depression, you may be able to get the generic form, which may cost less than brand-name medicine. Some makers of prescription medicines also offer help to people who cannot afford the medicines they need. Questions to ask your health care provider: If you are taking medicines ??? How long do I need to take medicine? Are there any long-term side effects of my medicine? Are there any alternatives to taking medicine? Other questions ??? How would I benefit from therapy? How often should I follow up with a health care provider? Contact a health care provider if: ??? Your symptoms get worse or they do not get better with treatment. Get help right away if: ??? You have thoughts about harming yourself or others. If you ever feel like you may hurt yourself or others, or have thoughts about taking your own life,get help right away. Go to your nearest emergency department or: ??? Call your local emergency services (911 in the [place] ??? Call a suicide crisis helpline, such as the National Suicide Prevention Lifeline at or 170 in the [place] This is open 24 hours a day in the [place] ??? Text the Crisis Text Line at 041296 (in the [place] Summary ??? Stress can affect your condition, so it is important to learn how to manage stress. ??? Aim to take part in all treatment decisions (shared decision-making). ??? Teach your loved ones about your condition and suggest ways they can support you. ??? Contact a health care provider if your symptoms get worse or they do not get better with treatment. This information is not intended to replace advice given to you by your health care provider. Make sure you discuss any questions you have with your health care provider. Document Revised: 05/29/2022 Document Reviewed: 04/24/2022 [employer] Patient Education ?? 2022 [employer]. Follow Up Care 06/23/2023 11:03:19 With:Your mental health team Address: When:24 Hours With:AUSTIN MCKEON RPA Address: [address] [place] [address]- [phone] When:2 to 4 days Physician Emergency department Note * Matheus Holloway MD: PERFORM Event Display: ED Note Physician Authored Date: [id number] KATHY HERNANDEZ :1995 Age:27 years Sex:Male Visit Date:06/23/2023 Primary Care Physician: AUSTIN MCKEON RPA Basic Information Time Seen: Matheus Holloway MD / 06/23/2023 11:06 Chief Complaint Voluntaryily here with skilled nursing case manager from [facility] for MH crisis involving his PTSD and manic/bipolar dx due to being hormonal and fighting with him triggering his breakdown. Denies thoughts of self harm. History Of Present Illness: 27-year-old??male with extensive past??psychiatric history presents to the ER with his case managerrequesting mental health evaluation??and voluntary admission.?? The patient states he has not been doing well recently with his PTSD and??bipolar disorder??having troubles dealing with his who is .?? He denies any homicidal or suicidal ideation but says he is having trouble managing his temper.?? He would like to be admitted psychiatrically.?? He was here 2 days ago and had screeninglabs but eloped prior to mental health evaluation. ??He returns today with his case packer and sealer. ?? Patient denies any??overdoses??or??attempts at harming himself. ??Denies any suicidal or homicidal ideation.?? When asked if he??drinks alcohol he said he is currently drinking alcohol from the [employer] cup that he is??holding.?? He says he does not drink chronically daily. Review of Systems: CONSTITUTIONAL:??No fevers or chills. EYES:??No change in vision. ENT:??No sore throat. ??No headache. ??No neck pain. CARDIOVASCULAR:??No chest pain, palpitations or passing out episodes. RESPIRATORY:??No cough, shortness of breath or hemoptysis. GI:??No abdominal pain. ??No nausea, vomiting or diarrhea. :??No change in urination. SKIN:??No rash. NEUROLOGIC:??No focal numbness or weakness. PSYCHIATRIC:??No suicidal ideation. LYMPH:??No swelling. ?? Review of systems otherwise as stated in HPI Physical Exam Vitals & Measurements T:??36.5?C ??(Oral)?? HR:??109??(Peripheral)?? RR:??16?? BP:??144/90?? SpO2:??98%?? HT:??193.040??cm?? WT:??65.70??kg?? BMI:??18.000?? O2 Therapy:??Room air?? GENERAL:??Awake and alert.?? Somewhat argumentative but??physically cooperative and conversant. ??Normal alertness. HEENT:??Normocephalic, atraumatic. HEART:??Regular rate and rhythm. LUNGS:??No respiratory distress. EXTREMITIES:??No obvious deformity. ??Old well-healed scars to the bilateral upper extremities. ??No acute lacerations. NEUROLOGIC:??Awake, alert, and oriented x3. ??Moves all extremities. SKIN:??Warm and dry. Medical Decision Making: Mental health evaluation. ??The patient presents requesting voluntary admission. ??Denies suicidal or homicidal ideation.?? He is currently drinking alcohol??but appears clinically sober. ??He is here with his??case packer and sealer.?? I explained to him the process of??obtaining laboratory studies,??ensuring??that the patient's blood alcohol level is below 80, and then??having the mental health evaluation ??possibly culminating in voluntary admission.?? He says he wants to use the labs from the other day which I explained to him is not??possible.?? He also says he wants to be placed in a mental healthbed within 12 hours??which I also explained is not likely??and that he would require admission heremedically while waiting for a mental health bed to be available.?? The patient has decided he wouldnot like to pursue??evaluation here as he wants to go home and not??wait for evaluation??or wait inthe hospital here.?? I explained the risks and benefits of this. ??He seems to have medical decision-making capacity and??has no reported danger to self or others. ??His case packer and sealer will take respons ibility for him and take him home. ??He will contact the patient's psychiatrist to they have not spoken to??as well as the emergency services through his agency in [place]??to help get the patient plugged in for further evaluation and possible placement. ??They know they can return anytime for??further evaluation.?? I cannot hold the patient against as well based on??the above findings. ??Laboratory studies have not returned at this point??and he is demanding to leave immediately. Procedure No Qualifying Data Assessment/Plan 1.??Mental health problem??F48.9 Orders: Acetaminophen Level, Blood, Stat, 06/23/23 11:07:00 EDT, Once, Nurse collect Alcohol Lvl, Blood, Stat, 06/23/23 11:07:00 EDT, Once, Nurse collect Comprehensive Metabolic Panel, Blood, Stat, 06/23/23 11:07:00 EDT, Once, Nurse collect Discharge Patient, 06/23/23 12:07:00 EDT Drug Screen Urine, Urine, Stat Collect, 06/23/23 11:07:00 EDT, Once, Nurse collect, Print Label Salicylate Level, Blood, Stat, 06/23/23 11:07:00 EDT, Once, Nurse collect Patient Education Managing Bipolar Disorder Follow Up With When Contact Information Your mental health team Within 24 Hours Additional Instructions: AUSTIN MCKEON RPA Within 2 to [address] [place] [phone]- [phone] Additional Instructions: Medication Reconciliation Unchanged ARIPiprazole (ARIPiprazole 15 mg oral tablet) ?? magnesium oxide (magnesium oxide 500 mg oral tablet) ?? melatonin (Melatonin 3 mg oral tablet) ?? mirtazapine (mirtazapine 15 mg oral tablet) ?? riboflavin (Vitamin B2 100 mg oral tablet) ?? riboflavin (Vitamin B2 100 mg oral tablet) ?? valACYclovir (valACYclovir 1 g oral tablet) Problem List/Past Medical History Ongoing No qualifying data Historical No qualifying data Allergies risperiDONE Social History Alcohol Past, Liquor- Comments: former alcoholic Electronic Cigarette/Vaping Electronic Cigarette Use: Use, within last 90 days. Type: Nicotine infused. Tobacco Never tobacco user Tobacco Use:. Lab Results CBC and Differential?? LATEST RESULTS?? HISTORICAL RESULTS?? WBC?? 06/23/23 11:38?? 7.2?? 06/21/23?? 7.1?? RBC?? 06/23/23 11:38?? 5.04?? 06/21/23?? 5.31?? Hgb?? 06/23/23 11:38?? 15.3?? 06/21/23?? 15.8?? Hct?? 06/23/23 11:38?? 42.2?? 06/21/23?? 44.6?? MCV?? 06/23/23 11:38?? 83.7?? 06/21/23?? 84.0?? MCH?? 06/23/23 11:38?? 30.4?? 06/21/23?? 29.8?? MCHC?? 06/23/23 11:38?? 36.3 ??High?? 06/21/23?? 35.4?? RDW-CV?? 06/23/23 11:38?? 12.4?? 06/21/23?? 12.4?? Platelets?? 06/23/23 11:38?? 221?? 06/21/23?? 216?? MPV?? 06/23/23 11:38?? 10.6 ??High?? 06/21/23?? 10.5 ??High?? Neutro Auto?? 06/23/23 11:38?? 76.1 ??High?? 06/21/23?? 72.8?? Lymph Auto?? 06/23/23 11:38?? 18.9 ??Low?? 06/21/23?? 21.1?? Caswell Auto?? 06/23/23 11:38?? 4.1?? 06/21/23?? 4.8?? Eos, Auto?? 06/23/23 11:38?? 0.30?? 06/21/23?? 0.60?? Basophil Auto?? 06/23/23 11:38?? 0.3?? 06/21/23?? 0.6?? Imm Gran Auto?? 06/23/23 11:38?? 0.3?? 06/21/23?? 0.1?? Neutro Absolute?? 06/23/23 11:38?? 5.4?? 06/21/23?? 5.2?? Lymph Absolute?? 06/23/23 11:38?? 1.4?? 06/21/23?? 1.5?? Caswell Absolute?? 06/23/23 11:38?? 0.3?? 06/21/23?? 0.3?? Eos Absolute?? 06/23/23 11:38?? 0.0?? 06/21/23?? 0.0?? Baso Absolute?? 06/23/23 11:38?? 0.0?? 06/21/23?? 0.0?? Imm Gran Absolute?? 06/23/23 11:38?? 0.02?? 06/21/23?? 0.01?? Slide Review?? 06/23/23 11:38?? Not Indicated? Electronically Signed on 06/23/23 12:09 PM Matheus Holloway MD Emergency department Discharge instructions * Matheus Holloway MD: PERFORM Event Display: ED Discharge Information Authored Date: [id number] KATHY HERNANDEZ :1995 Age:27 years Sex:Male Visit Date:06/23/2023 Primary Care Physician: AUSTIN MCKEON RPA Discharge Instructions We would like to thank you for allowing us to assist you with your healthcare needs. The following includes patient education materials and information regarding your injury/illness. Diagnosis from Today's Visit Mental health problem Discharge Vitals Temperature??(Oral) 97.7 ??F (36.5 ??C) Heart Rate??(Peripheral) 109 Respiratory Rate?? 16 Blood Pressure?? 144/90?? Height?? 76.00 in (193.040 cm) Weight?? 144.87 lb (65.70 kg) BMI?? 18.000 Allergies risperiDONE What to Do Next You Need to Schedule the Following Appointments Follow Up with??Your mental health team When:??Within 24 Hours Follow Up with??AUSTIN MCKEON RPA When:??Within 2 to 4 days Where: [address] [place] [phone] You were treated today on an emergency basis; it may be snyder to contact your primary care provider to notify them of your visit today. You may have been referred to your regular doctor or a specialist, please follow up as instructed. If your condition worsens or you can't get in to see the doctor, contact the Emergency Department. Medications What When Instructions Next Dose Unchanged ARIPiprazole (ARIPiprazole 15 mg oral tablet) Unchanged magnesium oxide (magnesium oxide 500 mg oral tablet) Unchanged melatonin (Melatonin 3 mg oral tablet) Unchanged mirtazapine (mirtazapine 15 mg oral tablet) Unchanged riboflavin (Vitamin B2 100 mg oral tablet) Unchanged riboflavin (Vitamin B2 100 mg oral tablet) Unchanged valACYclovir (valACYclovir 1 g oral tablet) Education Materials Managing Bipolar Disorder If you have been diagnosed with bipolar disorder, you may be relieved to now know that this is why you have felt or behaved a certain way. You may also feel overwhelmed about the treatment ahead, howto get needed support, and how to deal with your condition each day. With care and support, you canlearn to manage your symptoms and live with your condition. How to manage lifestyle changes Managing stress Stress is your body's reaction to life changes and events, both good and bad. Stress can affect your condition, so it is important to learn how to manage stress. Some techniques to help manage stressinclude: ? Meditation, muscle relaxation, and breathing exercises. ? Exercise. Even a short daily walk can help to lower stress levels. ? Getting enough good-quality sleep. Too little sleep can trigger the emotional highs of oneyda. ? Making a schedule to manage your time. A daily schedule can help keep you from feeling overwhelmed by tasks and deadlines. ? Spending time on hobbies you enjoy. Medicines Your health care provider may suggest certain medicines if he or she thinks that these will help improve your condition. Avoid using caffeine, alcohol, and other substances that may prevent your medicines from working properly. Be sure to: ? Talk with your pharmacist or health care provider about all the medicines that you take, their possible side effects, and which medicines are safe to take together. ? Make it your goal to take part in all treatment decisions with your health care provider (shared decision-making). Ask about possible side effects of medicines, and share how you feel about having those side effects. It is best if shared decision-making is part of your total treatment plan. If you are taking medicines as part of your treatment, do not stop taking them before asking if it is safe to stop. You may need to have the medicine slowly decreased (tapered) over time to lower therisk of harmful side effects. Relationships Spend time with people whom you trust and with whom you feel a sense of understanding and calm. Tryto find friends or family members who make you feel safe and can help you control feelings of oneyda. Consider going to couples counseling, family education classes, or family therapy to: ? Teach your loved ones about your condition and suggest ways they can support you. ? Help resolve conflicts. ? Help develop communication skills in your relationships. How to recognize changes in your condition Everyone responds differently to treatment for bipolar disorder. Signs that your condition is improving include: ? Leveling of your mood. You may have less anger and excitement about daily activities, and your low moods may not be as bad. ? Your symptoms being less intense. ? Feeling calm more often. ? Thinking clearly. ? Not experiencing consequences for extreme behavior. ? Feeling like your life is settling down. ? Your behavior seeming more normal to you and to other people. Signs that your condition may be getting worse include: ? Sleep problems. ? Moods cycling between deep lows and unusually high energy. ? Extreme emotions, or more anger toward loved ones. ? Staying away from others, or isolating yourself. ? A feeling of power or superiority. ? Completing a lot of tasks in a very short amount of time. ? Unusual thoughts and behaviors. ? Thoughts of suicide. Follow these instructions at home: Medicines ? Take qbin-vnx-metwdwc and prescription medicines only as told by your health care provider or pharmacist. ? Ask your pharmacist what bzcm-bgw-kphzlaq cold medicines you should avoid. Some medicines can make symptoms worse. General instructions ? Ask for support from trusted family members or friends to make sure you stay on track with your treatment. ? Keep a journal to write down your daily moods, medicines, sleep habits, and life events. This may bring you more success with your treatment. ? Make and follow a routine for daily meal times. Eat healthy foods, such as whole grains, vegetables, and fresh fruit. ? Try to go to sleep and wake up around the same time every day. ? Avoid using products that contain nicotine or tobacco. If you want help quitting, ask your health care provider. ? Keep all follow-up visits. This is important. Where to find support Helplines and other support ? Substance Abuse and Mental Health Services Administration ([facility]) National Helpline: 5-202-235-HELP (8117) ? National [place] on Mental Illness ([employer]) HelpLine: 9-855-585-ISAAK (6006) or email ? Depression and Bipolar Support [place]: dbsalliance.org Talking to others ? Try making a list of the people you may want to tell about your condition, such as the people you trust most. ? Plan what you are willing and not willing to talk about. Think about your needs ahead of time and how others can support you. ? Let your loved ones know when they can share advice and when you would just like them to listen. ? Give your loved ones information about bipolar disorder and encourage them to learn about the condition. Finances Not all insurance plans provide the same coverage for mental health care, so it is important to check with your insurance carrier. If paying for co-pays or counseling services is a problem, search for a local or [facility] mental health care center. Public mental health care services may be offered there at a low cost or no cost when you are not able to see a private health care provider. If you are taking medicine for depression, you may be able to get the generic form, which may cost less than brand-name medicine. Some makers of prescription medicines also offer help to people who cannot afford the medicines they need. Questions to ask your health care provider: If you are taking medicines ? How long do I need to take medicine? Are there any long-term side effects of my medicine? Are there any alternatives to taking medicine? Other questions ? How would I benefit from therapy? How often should I follow up with a health care provider? Contact a health care provider if: ? Your symptoms get worse or they do not get better with treatment. Get help right away if: ? You have thoughts about harming yourself or others. If you ever feel like you may hurt yourself or others, or have thoughts about taking your own life,get help right away. Go to your nearest emergency department or: ? Call your local emergency services (911 in the [place] ? Call a suicide crisis helpline, such as the National Suicide Prevention Lifeline at or 482 in the [place] This is open 24 hours a day in the [place] ? Text the Crisis Text Line at 214192 (in the [place] Summary ? Stress can affect your condition, so it is important to learn how to manage stress. ? Aim to take part in all treatment decisions (shared decision-making). ? Teach your loved ones about your condition and suggest ways they can support you. ? Contact a health care provider if your symptoms get worse or they do not get better with treatment. This information is not intended to replace advice given to you by your health care provider. Make sure you discuss any questions you have with your health care provider. Document Revised: 05/29/2022 Document Reviewed: 04/24/2022 [employer] Patient Education ?? 2022 [employer] Tests Performed Lab Test Name Test Result Date/Time WBC 7.2 K/mcL 06/23/2023 11:38 EDT RBC 5.04 Million/mcL 06/23/2023 11:38 EDT Hgb 15.3 g/dL 06/23/2023 11:38 EDT Hct 42.2 % 06/23/2023 11:38 EDT MCV 83.7 fL 06/23/2023 11:38 EDT MCH 30.4 pg 06/23/2023 11:38 EDT MCHC 36.3 g/dL 06/23/2023 11:38 EDT RDW-CV 12.4 % 06/23/2023 11:38 EDT Platelets 221 K/mcL 06/23/2023 11:38 EDT MPV 10.6 fL 06/23/2023 11:38 EDT Neutro Auto 76.1 % 06/23/2023 11:38 EDT Lymph Auto 18.9 % 06/23/2023 11:38 EDT Caswell Auto 4.1 % 06/23/2023 11:38 EDT Eos, Auto 0.30 % 06/23/2023 11:38 EDT Basophil Auto 0.3 % 06/23/2023 11:38 EDT Imm Gran Auto 0.3 % 06/23/2023 11:38 EDT Neutro Absolute 5.4 K/mcL 06/23/2023 11:38 EDT Lymph Absolute 1.4 K/mcL 06/23/2023 11:38 EDT Caswell Absolute 0.3 K/mcL 06/23/2023 11:38 EDT Eos Absolute 0.0 K/mcL 06/23/2023 11:38 EDT Baso Absolute 0.0 K/mcL 06/23/2023 11:38 EDT Imm Gran Absolute 0.02 06/23/2023 11:38 EDT Slide Review Not Indicated 06/23/2023 11:38 EDT Patient/Construction Manager Signature Patient Name:KATHY HERNANDEZ I have received this information and my questions have been answered. Patient/Construction Manager Name: Patient/Construction Manager Signature: Relationship to Patient: Witness Name/Signature: Date: Electronically Signed on: 06/23/2023 12:06 EDTSigned by: Patient Care team information Care Team Personnel Name: AUSTIN MCKEON RPA Position: No Access Member Role: Primary Care Physician Address: Address: [address] [place] [id number] Name: Matheus Holloway MD Position: Physician Member Role: Admitting Physician Address: Address: [address] [place], [place] [address] Name: Frances Valdez Position: Nurse Member Role: Registered Nurse Care Team Related Persons Name: FLOR AGUILAR Address: Home [address] [facility] [id number]
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
--- NOTE | 2023-07-15 12:24 | NUR.NOTE ---
Accessed pt chart to determine the number of EKG orders. Nursing Note:
== END 2023-07-15 01:21 | disposition left against medical advice (07) ==
PROVIDERS: Emergency Medicine; Emergency Provider Student in an Organized Health Care Education/Training Program; PCP Physician Assistant
DX: T50.992A Poisoning by other drugs, medicaments and biological substances, intentional self-harm, initial encounter (principal); S09.90XA Unspecified injury of head, initial encounter; X58.XXXA Exposure to other specified factors, initial encounter; S40.211A Abrasion of right shoulder, initial encounter; Z91.51 Personal history of suicidal behavior; F32.A Depression, unspecified; Z87.820 Personal history of traumatic brain injury; C80.1 Malignant (primary) neoplasm, unspecified; F17.290 Nicotine dependence, other tobacco product, uncomplicated; F17.210 Nicotine dependence, cigarettes, uncomplicated
CPT/HCPCS: 80053; 80307; 82962; 83690; 93005; 96372; 99285; 70450; 72125; 80320; 80329; 81003; 81015; 84443; 85025; 85610; 85730; 87086; 93010

== ENCOUNTER 2023-07-15 14:50 | Emergency (ER) | payer MEDICAID, SELFPAY ==
[2023-07-15 15:00] VITALS: BP 111/65; PULSE 100; RESP 20; TEMP 37.3; O2SAT 99
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
[2023-07-15 16:29] VITALS: BP 111/65; PULSE 89; RESP 20; TEMP 37.3; O2SAT 99
== END 2023-07-15 16:30 | disposition home or self-care (01) ==
PROVIDERS: Emergency Provider Student in an Organized Health Care Education/Training Program; PCP Physician Assistant
DX: Z87.898 Personal history of other specified conditions (principal)
CPT/HCPCS: 80053; 99283; 80320; 80329; 85025; 99284

== ENCOUNTER 2023-10-05 14:19 | Emergency (ER) | payer MEDICAID, SELFPAY ==
[2023-10-05 14:15] VITALS: BP 116/64; PULSE 78; RESP 15; TEMP 36.9; O2SAT 98
--- NOTE | 2023-10-05 14:15 | RT.EKG_ITS ---
APPROVED REPORT Exam: Resting ECG Reason for Exam: seizure Patient Location: E HR:80 bpm ECG Measurements Heart Rate 80 AXIS NE 128 P 55 QRSd 96 QRS 77 QT 411 T 40 QTc 474 Conclusion Sinus rhythm normal rate normal axis early repol
[2023-10-05 14:34] LABS: Abs Immature Grans 0.02 10^3/uL (0.0-0.06); Absolute Basophil Count 0.03 10^3/uL (0.0-0.2); Absolute Eosinophil Count 0.04 10^3/uL (0.0-0.7); Absolute Lymphocyte Count 1.29 10^3/uL (1.2-3.4); Absolute Monocyte Count 0.34 10^3/uL (0.1-0.8); Absolute Neutrophil Count 4.48 10^3/uL (1.2-6.7); Basophils % 0.5; Eosinophils % 0.6; HGB 14.3 g/dL (13.5-17.5); Immature Grans % 0.3; Lymphocytes % 20.8; MCH 29.9 pg (27.0-33.0); MCHC 35.8 % (32.0-36.0); MCV 84 fL (80-95); MPV 10.4 fL (8.0-11.0); Monocytes % 5.5; Neutrophils % 72.3; Platelet Count 181 10^3/uL (130-400); RBC 4.79 10^6/uL (4.36-5.78); RDW 11.9 % (11.8-14.1); RDW-SD 36.5 fL
[2023-10-05] MEDS: Normal Saline 1,000 ML 1000 ML IV (14:35)
--- NOTE | 2023-10-05 14:35 | W.ED.GENAD ---
Discharge Plan Disposition [facility] Discharge Details Clinical Impression: Seizure-like activity, Manipulative behavior, Malingering Primary Care Provider: Loco Brice ED Provider: Lexy Gipson Home Meds and New Rx's Prescriptions: No Action aripiprazole [Abilify] 20 mg tablet 20 mg PO DAILY mirtazapine 30 mg tablet 30 mg PO QHS valacyclovir [Valtrex] 1 gram tablet 1,000 mg PO DAILY riboflavin (vitamin B2) 100 mg tablet 200 mg PO BID Qty: 360 3RF magnesium oxide 500 mg capsule 500 mg PO DAILY Qty: 90 3RF Patient Comments: not taking ibuprofen 600 mg tablet 600 mg PO TID PRN (Reason: pain) Qty: 90 3RF Discharge Instructions Additional Instructions: patient reports history of seizures and that he takes medication for this. He does not know the amount of medicine he takes or when he takes it. There is no documentation that he is on this medicine, so I cannot provide instructions on giving it to him. at the time of discharge patient states that he wants to end his life. I do not believe he is suicidal but that this is manipulative and malingering behavior to avoid incarceration. Please take appropriate precautions per senior living protocols. Medical Decision Making Emergent evaluation of seizure-like activity. Patient did receive Versed by EMS prior to arrival. He does have a diminished mental status however this could be secondary to seizure or to the Versed. He has no focal neurologic deficits. His vital signs are normal. There is no evidence of trauma or signs of seizure including tongue biting or incontinence. There is no evidence of continued seizure activity. My initial differential includes seizure disorder, malingering, electrolyte derangement, substance use or withdrawal. I reviewed the medical record and noted that he had a normal head CT in June, I do not think that he needs another one today. On reevaluation, the patient is sitting up in bed this he has no neurologic deficits or signs of with a depressed mental status. His lab work is unremarkable. At this time he is medically cleared to return to senior living. At the time that I informed the patient of this he then stated that he wanted to end his life. He has no plan for suicide, I do not feel that he is truly suicidal.. I feel that this is manipulative and malingering behavior in an attempt to prevent him from going to senior living. It is unclear that his seizure actually took place. Seizure precautions were discussed with the patient specifically not to swim unattended, not to operate motor vehicles or other machinery, and to avoid heights or other areas where falls may occur until cleared by primary care physician or neurologist. Patient is safe for discharge. Advised patient that if he is taking Keppra he needs to take it as prescribed and he needs to review the dosing Medical Records Medical records reviewed: Yes I reviewed the patient's medical records. Lab Data Lab results reviewed: Yes I reviewed the patient's lab results. ECG Data Attestation: I personally reviewed and interpreted this ECG (s) as follows: Prior ECG tracings: not available for review Interpretation: Sinus 88 normal axis benign early repole HPI General Date/Time Provider Initiated Documentation: 10/05/23 14:23. Limitations to Documentation: no limitations. Information obtained by: patient. HPI Narrative: 27-year-old gentleman with unknown past medical history presents for evaluation after seizure-like activity. Patient was in police custody and was at the court house. The officer reports that the patient was told that he was going to be returning to senior living and she states that he went limp noodle and they sat him on a bench. She states that then he started to have some shaking and his eyes were fluttering. She states that he was not stiff. There was no color change. He did not stop breathing. EMS reports seizure-like activity on their arrival which stopped after giving him 10 mg of Versed. Patient is awake and states that he does have seizures and that he takes Keppra. Denies that he has missed any doses. Related Data Home Medications Medication Instructions Recorded Confirmed ibuprofen 600 mg tablet 600 mg PO TID PRN pain #90 tabs 12/05/20 10/05/23 aripiprazole 20 mg tablet (Abilify) 20 mg PO DAILY 01/28/23 10/05/23 mirtazapine 30 mg tablet 30 mg PO QHS 01/28/23 10/05/23 valacyclovir 1 gram tablet 1,000 mg PO DAILY 01/28/23 10/05/23 (Valtrex) magnesium oxide 500 mg capsule 500 mg PO DAILY #90 caps 02/11/23 10/05/23 riboflavin (vitamin B2) 100 mg 200 mg (2 x 100 mg) PO BID #360 04/01/23 10/05/23 tablet tabs Previous Rx's Medication Instructions Recorded ibuprofen 600 mg tablet 600 mg PO TID PRN pain #90 tabs 12/05/20 magnesium oxide 500 mg capsule 500 mg PO DAILY #90 caps 02/11/23 riboflavin (vitamin B2) 100 mg 200 mg (2 x 100 mg) PO BID #360 04/01/23 tablet tabs Allergies Allergy/AdvReac Type Severity Reaction Status Date / Time risperidone [From Risperdal] Allergy Intermediate Psychosis Unverified 10/05/23 15:13 General Stated Complaint: Seizure AGUSTINA: 3 PFSH All Active Problems (Updated 10/05/23 @ 15:30 by Lexy Gipson MD) Malingering (Acute) Manipulative behavior (Acute) Seizure-like activity (Acute) Spells of decreased attentiveness (Acute) Daily headache (Acute) COVID-19 (Acute) Depression (Chronic) Posterior tibial tendon tear, traumatic (Acute) Arterial hemorrhage (Acute) Laceration of ankle, left (Acute) Strep pharyngitis (Acute) Medical History History of suicidal ideation TBI (traumatic brain injury) Autism Chronic depression Herpes genitalis in men Staphylococcal food poisoning Cognitive impairment Chronic tension headache ADHD Schizoaffective disorder Social History Smoking/Tobacco Use Status: Current-Occasional Tobacco Type: cigarettes and e-cigarettes Smoking risk assessment performed?: Yes Alcohol Intake: current Alcohol Intake frequency: holidays/special occasions only Alcohol type: beer Drug use: Never Substance use type: does not use Details: Did not want to respond Housing: apartment Current gender identity: male Do you feel safe at home: No Do you feel safe in your relationship?: No Exam Narrative Exam Narrative: Review of Systems: All systems reviewed & are unremarkable except as noted in HPI and below: CONSTITUTIONAL: sluggish, oriented, follows commands Well-developed, no acute distress HEENT: NACT EYES: PERRL, no conjunctival injection no tongue trauma CVS: RRR, No murmurs or gallops. Peripheral pulses 2+ and equal in all extremities Brisk capillary refill in all extremities. No peripheral edema RESP: Unlabored respiratory effort, Clear to auscultation bilaterally No wheezes rales or rhonchi GI: Soft, Nontender, Nondistended, No organomegaly : no signs of urinary or bowel incontinence MSK: Extremities with full range of motion, no deformity or TTP SKIN: Warm, Dry. No rashes or lesions. NEURO: No focal neurologic deficits. 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 Sensation grossly intact Normal strength throughout Course Vital Signs Vital signs: Vital Signs Temperature 36.9 C 10/05/23 14:15 Pulse 78 10/05/23 14:15 Respiratory Rate 15 10/05/23 14:15 Blood Pressure 116/64 10/05/23 14:15 Pulse Oximetry 98 10/05/23 14:15 Temperature 36.9 C 10/05/23 14:15 Temperature Source Temporal Artery Scan 10/05/23 14:15 Pulse 78 10/05/23 14:15 Respiratory Rate 15 10/05/23 14:15 Respiratory Effort Normal, Non-Labored 10/05/23 14:24 Respiratory Depth Normal 10/05/23 14:24 Respiratory Pattern Normal 10/05/23 14:24 Blood Pressure 116/64 10/05/23 14:15 Pulse Oximetry 98 10/05/23 14:15 Oxygen Delivery Method Room Air 10/05/23 14:15 Oxygen Flow Rate 0 10/05/23 14:15 Lab/Test Results Lab/Test Results: Laboratory Tests Range/Units 10/05/23 14:25 WBC (4.4-10.8) 10^3/uL 6.20 RBC (4.36-5.78) 10^6/uL 4.79 Hgb (13.5-17.5) g/dL 14.3 Hct (40.0-50.0) % 40.0 MCV (80-95) fL 84 MCH (27.0-33.0) pg 29.9 MCHC (32.0-36.0) % 35.8 RDW (11.8-14.1) % 11.9 Plt Count (130-400) 10^3/uL 181 MPV (8.0-11.0) fL 10.4 Immature Gran % 0.3 Neutrophils % 72.3 Lymphocytes % 20.8 Monocytes % 5.5 Eosinophils % 0.6 Basophils % 0.5 Nucleated RBC % (0.0-0.3) % 0.0 Absolute Neutrophils (1.2-6.7) 10^3/uL 4.48 Absolute Lymphocytes (1.2-3.4) 10^3/uL 1.29 Absolute Monocytes (0.1-0.8) 10^3/uL 0.34 Absolute Eosinophils (0.0-0.7) 10^3/uL 0.04 Absolute Basophils (0.0-0.2) 10^3/uL 0.03
[2023-10-05 14:59] LABS: ALT 31 U/L (16-63); AST 24 U/L (15-37); Albumin 4.1 g/dL (3.4-5.0); Alkaline Phosphatase 67 U/L (46-116); Anion Gap 4.5 mmol/L (3-11); BUN 18 mg/dL (7-18); Bilirubin, Total 0.5 mg/dL (0.2-1.0); CO2 29.5 mmol/L (21.0-32.0); CREATININE 0.9 mg/dL (0.70-1.30); Calcium 9.5 mg/dL (8.5-10.1); Chloride 105 mmol/L (98-107); Estimated GFR 121.55 (mL/min/1.73m2); Glucose 102 mg/dL (74-106); Magnesium 1.8 mg/dL (1.8-2.4); Potassium 3.8 mmol/L (3.5-5.1); Sodium 139 mmol/L (136-145); TSH (W/Ref FT4) 1.43 uIU/mL (0.36-3.74); Total Protein 7.2 g/dL (6.4-8.2)
[2023-10-05 15:08] LABS: ETHANOL BLOOD < 3.0 mg/dL (<10)
[2023-10-05 15:21] LABS: Bilirubin Negative (Negative); Blood Negative (Negative); Clarity Cloudy (Clear); Glucose Negative (Negative); Ketones Negative (Negative); Leukocyte Esterase Negative (Negative); Nitrite Negative (Negative); Specific Gravity 1.025 (1.005-1.025); pH 6.5 (5-8)
[2023-10-05 15:51] LABS: *AMPHETAMINES SCREEN URINE Negative (Negative); *BARBITURATES SCREEN URINE Negative (Negative); *BENZODIAZEPINES SCREEN URINE Positive (Negative); Cannabinoids THC Negative (Negative); Cocaine Screen,Urine Negative (Negative); METHADONE URINE SCREEN Negative (Negative); OPIATES URINE SCREEN Negative (Negative)
[2023-10-05 15:52] LABS: Tricyclic Antidepressants Negative (Negative)
[2023-10-09 13:23] LABS: Levetiracetam 9.9 mcg/mL
== END 2023-10-05 15:35 ==
PROVIDERS: Registered Nurse Emergency; Emergency Provider Emergency Medicine; PCP Physician Assistant
DX: G40.909 Epilepsy, unspecified, not intractable, without status epilepticus (principal); F60.89 Other specific personality disorders; F17.210 Nicotine dependence, cigarettes, uncomplicated; Z76.5 Malingerer [conscious simulation]; Z87.820 Personal history of traumatic brain injury
CPT/HCPCS: 36415; 80053; 80307; 82962; 93005; 96360; 99283; 80177; 80320; 81003; 83735; 84443; 85025; 93010

== ENCOUNTER 2023-11-12 19:02 | Emergency (ER) | payer MEDICAID, SELFPAY ==
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
[2023-11-12 19:05] VITALS: BP 184/102; PULSE 96; RESP 18; TEMP 36.5; O2SAT 99
--- NOTE | 2023-11-12 19:19 | NUR.NOTE ---
Nursing Note: patient stated I want to kill myself i have 5 years over my head I wont come out the same speaking of not wanting to go to [facility]
--- NOTE | 2023-11-12 20:18 | DI.VRAD_ITS ---
PROCEDURE INFORMATION: Exam: CT Head Without Contrast Exam date and time: 11/12/2023 7:49 PM Age: 27 years old Clinical indication: Injury or trauma; Blunt trauma (contusions or hematomas) TECHNIQUE: Imaging protocol: Computed tomography of the head without contrast. Total images: 2164 COMPARISON: CT HEAD CERVICAL SPINE WO 07/14/2023 11:08 PM FINDINGS: Images are mild to moderately degraded by motion. Brain: No intra or extra-axial bleed. No edema or mass effect. Cerebral ventricles: No hydrocephalus. Basal cisterns are patent. Paranasal sinuses: No mucosal thickening or fluid levels. Mastoid air cells: Mastoid air cells are clear. Bones/joints: No significant bony abnormality. No definite fracture. Soft tissues: Right anterior scalp hematoma. No opaque foreign body or soft tissue gas. IMPRESSION: 1. Somewhat limited by motion. 2. No definite intracerebral bleed. Dictated and Authenticated by: David Whitt MD. Ordering:CAROLYN Farfan MD
--- NOTE | 2023-11-12 21:12 | W.ED.GENAD ---
Discharge Plan Disposition [facility] Discharge Details Clinical Impression: Aggressive behavior, Suicidal ideations, Contusion of head Primary Care Provider: Loco Brice ED Provider: Lexy Gipson Home Meds and New Rx's Prescriptions: No Action aripiprazole [Abilify] 20 mg tablet 20 mg PO DAILY mirtazapine 30 mg tablet 30 mg PO QHS valacyclovir [Valtrex] 1 gram tablet 1,000 mg PO DAILY riboflavin (vitamin B2) 100 mg tablet 200 mg PO BID Qty: 360 3RF magnesium oxide 500 mg capsule 500 mg PO DAILY Qty: 90 3RF Patient Comments: not taking ibuprofen 600 mg tablet 600 mg PO TID PRN (Reason: pain) Qty: 90 3RF Discharge Instructions Additional Instructions: Patient has large contusions to the forehead and the posterior of his scalp. There does not appear to be skull fracture or any intracranial bleeding. Patient is stating that he wants to kill himself. Please follow suicidal protocols per the police system. Medical Decision Making Emergent evaluation of head trauma. Per report this was self-inflicted. No loss of consciousness, no obvious neurologic deficit at this time. There is a significant amount of contusion noted on examination. Patient was sent for CT imaging of this area to evaluate for skull fracture or intracranial bleeding. There is a significant difficulty in obtaining the head CT due to complaints of the patient and difficulty with the police officers capacity to restrain the patient. police asked me to sedate the patient but there is no indication for sedation at this time. Head CT reviewed, there is significant motion artifact, but no skull fracture or bleeding. At this time the patient is medically cleared for return to senior living. Given his suicidal statements in the emergency department, have advised that he be placed on suicide precautions per their protocol. Medical Records Medical records reviewed: Yes I reviewed the patient's medical records. HPI General Date/Time Provider Initiated Documentation: 11/12/23 19:12. Limitations to Documentation: other (Refusal). Information obtained by: police and EMS. HPI Narrative: 27-year-old gentleman with past medical history of seizure disorder presents for evaluation of head trauma. Patient was brought by EMS from police custody. Apparently while in custody, the patient was hitting his head against the wall. There was no loss of consciousness, no vomiting. The patient was alert and speaking however when EMS arrived, he stopped answering any of their questions. He was ambulatory on scene. Patient is refusing to answer any of my questions or provide any additional history. The only thing that he says at this time is that no matter what it takes he will kill himself tonight if he goes back to senior living Related Data Home Medications Medication Instructions Recorded Confirmed ibuprofen 600 mg tablet 600 mg PO TID PRN pain #90 tabs 12/05/20 11/12/23 aripiprazole 20 mg tablet (Abilify) 20 mg PO DAILY 01/28/23 11/12/23 mirtazapine 30 mg tablet 30 mg PO QHS 01/28/23 11/12/23 valacyclovir 1 gram tablet 1,000 mg PO DAILY 01/28/23 11/12/23 (Valtrex) magnesium oxide 500 mg capsule 500 mg PO DAILY #90 caps 02/11/23 11/12/23 riboflavin (vitamin B2) 100 mg 200 mg (2 x 100 mg) PO BID #360 04/01/23 11/12/23 tablet tabs Previous Rx's Medication Instructions Recorded ibuprofen 600 mg tablet 600 mg PO TID PRN pain #90 tabs 12/05/20 magnesium oxide 500 mg capsule 500 mg PO DAILY #90 caps 02/11/23 riboflavin (vitamin B2) 100 mg 200 mg (2 x 100 mg) PO BID #360 04/01/23 tablet tabs Allergies Allergy/AdvReac Type Severity Reaction Status Date / Time risperidone [From Risperdal] Allergy Intermediate Psychosis Unverified 11/12/23 19:10 General Stated Complaint: HeadInjury AGUSTINA: 2 PFSH All Active Problems Contusion of head (Acute) Suicidal ideations (Acute) Aggressive behavior (Acute) Spells of decreased attentiveness (Acute) Daily headache (Acute) COVID-19 (Acute) Depression (Chronic) Posterior tibial tendon tear, traumatic (Acute) Arterial hemorrhage (Acute) Laceration of ankle, left (Acute) Strep pharyngitis (Acute) Medical History History of suicidal ideation TBI (traumatic brain injury) Autism Chronic depression Herpes genitalis in men Staphylococcal food poisoning Cognitive impairment Chronic tension headache ADHD Schizoaffective disorder Social History Smoking/Tobacco Use Status: Current-Occasional Tobacco Type: cigarettes and e-cigarettes Smoking risk assessment performed?: Yes Alcohol Intake: current Alcohol Intake frequency: holidays/special occasions only Alcohol type: beer Drug use: Never Substance use type: does not use Housing: apartment Current gender identity: male Do you feel safe at home: No Do you feel safe in your relationship?: No Exam Narrative Exam Narrative: Review of Systems: All systems reviewed & are unremarkable except as noted in HPI and below Well-developed, no acute distress Large contusion on left and right forehead, right contusion extending around to temporal scalp. There is also contusion on posterior scalp. No obvious skull deformity, no open laceration, no hemotympanum, no mastoid tenderness or Kumar sign PERRL, normal conjunctiva RRR Unlabored respiratory effort Nondistended abdomen Extremities w/o deformity, no cyanosis, no edema No rashes or lesions. no focal neurologic deficits Refusing to answer questions In handcuffs, in police custody Course Vital Signs Vital signs: Vital Signs Temperature 36.5 C 11/12/23 19:05 Pulse 96 H 11/12/23 19:05 Respiratory Rate 18 11/12/23 19:05 Blood Pressure 184/102 H 11/12/23 19:05 Pulse Oximetry 99 11/12/23 19:05 Temperature 36.5 C 11/12/23 19:05 Pulse 96 H 11/12/23 19:05 Respiratory Rate 18 11/12/23 19:05 Respiratory Effort Normal, Non-Labored 11/12/23 19:14 Respiratory Depth Normal 11/12/23 19:14 Blood Pressure 184/102 H 11/12/23 19:05 Pulse Oximetry 99 11/12/23 19:05 Oxygen Delivery Method Room Air 11/12/23 19:05 Oxygen Flow Rate 0 11/12/23 19:05
== END 2023-11-12 20:33 ==
PROVIDERS: Emergency Provider Emergency Medicine; PCP Physician Assistant
DX: R45.851 Suicidal ideations (principal); S00.83XA Contusion of other part of head, initial encounter; S00.03XA Contusion of scalp, initial encounter; G40.909 Epilepsy, unspecified, not intractable, without status epilepticus; Z87.820 Personal history of traumatic brain injury; W22.01XA Walked into wall, initial encounter; Y93.89 Activity, other specified; Y92.143 Cell of prison as the place of occurrence of the external cause
CPT/HCPCS: 99284; 70450; 99283